=== PATIENT | male | born 1935 | race Caucasian/White ===

== ENCOUNTER 2019-04-28 05:47 | Day surgery (SDC) | payer MEDICARE ==
[2019-04-22 11:57] VITALS: BMI 25.6
[2019-04-28 07:03] VITALS: TEMP 97.7
[2019-04-28] MEDS ORDERED: fentaNYL (PF) 50 MCG/ML 2 ML AMP ONE (07:13)
[2019-04-28] MEDS ORDERED: SODIUM CHLORIDE 0.9% 500 ML 500 ML IV ONE (07:26)
[2019-04-28] MEDS ORDERED: BENZOCAINE SPRAY 1 CAN MUCOUS MEM ONE (08:10)
[2019-04-28] MEDS ORDERED: MIDAZOLAM (PF) 2 MG/2 ML VIAL IV ONE ×2 (08:12)
[2019-04-28] MEDS ORDERED: fentaNYL (PF) 50 MCG/ML 2 ML AMP IV ONE (08:12)
[2019-04-28 08:55] VITALS: RESP 18
[2019-04-28] MEDS ORDERED: SODIUM CHLORIDE 0.9% 1,000 ML IV SCH (09:45)
--- NOTE | 2019-04-28 10:28 | P.TEE ---
Indications for Procedure(s): Aortic stenosis Date of Procedure: 04/28/19 Preoperative Diagnosis: Syncope, aortic stenosis Postoperative Diagnosis: Moderate to severe aortic stenosis Procedure(s) Performed: CHACHA Description of Procedure(s): INDICATION: This is a 83-year-old gentleman with history of syncope, complete heart block and status post permanent pacemaker implantation who is also found evidence of aortic stenosis. CHACHA examination is requested to assess severity of aortic stenosis CONSENT: . Verbal consent is obtained from the patient PROCEDURE: Patient was brought to the lab in a fasting state. He was given IV sedation with 2 mg of Versed and boluses and also 25 g of fentanyl. His throat was sprayed with Cetacaine. A lubricated Omni probe was introduced into the oropharynx and was advanced into the esophagus. Patient tolerated the procedure well. No immediate complications. Color, pulsed and also continuous wave Doppler was performed. Saline contrast bubble injection was also performed. Patient tolerated the procedure well. No immediate complications FINDINGS: . The aortic valve is tricuspid, Which is heavily calcified with restricted opening. By planimetry valve area of about 1.3 cm was obtained. By Doppler study, A peak gradient of 44 with a mean of 28 was obtained. The this findings are consistent with moderate to severe aortic stenosis. Doesn't appear to be critical at this time. There is a mild aortic regurgitation. Mitral also showed calcification and thickening of the leaflets and annulus. There is mild mitral regurgitation. No significant gradient is noted across the mitral valve. The tricuspid valve appeared to be normal. The interatrial septum appeared to be intact with the bouncing of the septum. There is no spontaneous shunt noted across the septum. Saline contrast bubble injection did not reveal any crossing of the bubbles. The left ventricle function appeared to be normal. The left atrial appendage appeared to be free of any clot. There is no reversal of flow in the pulmonary veins. The aorta showed mild plaque IMPRESSION: Noted #1. Moderate to severe aortic stenosis. Doesn't appear to be critical and the close follow-up with serial echoes is recommended #2. Mild aortic regurgitation. #3. Mild mitral regurgitation. Mitral valve also shows thickening and calcification of the leaflets and also annulus #4. No evidence of PFO. #5. No clot in the left atrial appendage PLAN: . Continuation of the maximal medical therapy and close follow-up with serial echoes for assessment of the progression of aortic stenosis
[2019-04-28 11:12] VITALS: BP 107/67; PULSE 52
== END 2019-04-28 11:00 | disposition home or self-care (01) ==
LOC: CATHCVL 05:47
PROVIDERS: ATTEND Internal Medicine Cardiovascular Disease
DX: I08.0 Rheumatic disorders of both mitral and aortic valves (principal); I70.0 Atherosclerosis of aorta; I10 Essential (primary) hypertension; C44.00 Unspecified malignant neoplasm of skin of lip; F17.210 Nicotine dependence, cigarettes, uncomplicated; E78.5 Hyperlipidemia, unspecified; I44.2 Atrioventricular block, complete; I48.0 Paroxysmal atrial fibrillation; Z95.0 Presence of cardiac pacemaker; Z79.01 Long term (current) use of anticoagulants; Z79.899 Other long term (current) drug therapy
CPT/HCPCS: 93312; 93320; 93325; J3010; J2250

== ENCOUNTER 2019-05-11 12:25 | Emergency (ER) | payer MEDICARE ==
[2019-05-11 12:56] VITALS: BP 133/80; PULSE 54; RESP 20; TEMP 98.3
--- NOTE | 2019-05-11 13:22 | ED ---
Wound/Laceration HPI - General Chief Complaint: Wound/Laceration Stated Complaint: Bleeding foot-no injury Time Seen by Provider: 05/11/19 13:05 Source: patient Mode of arrival: ambulatory Limitations: no limitations - History of Present Illness Initial Comments: Patient is a 83-year-old male presenting to the emergency Department with complaints of a bleeding varicose vein on his left ankle area. Patient states he was putting on his sock when he noticed some bleeding coming from his left ankle/foot. Patient states this is second time it happened. Patient states he was able to put pressure and elevate his foot and the bleeding stopped within 5 minutes. Patient does admit to being on a blood thinner. Patient does have a vascular doctor already. Patient denies fever, chills, dizziness at this time. Patient has no other complaints at this time. Upon arrival, bleeding is controlled at this time. Vital signs are stable. - Related Data Home Medications Medication Instructions Recorded Confirmed Albuterol Sulfate [Proventil Hfa] 1 - 2 puff INHALATION Q6HR PRN 04/22/19 04/22/19 Atorvastatin [Lipitor] 10 mg PO DAILY 04/22/19 04/22/19 Carvedilol [Coreg] 3.125 mg PO BID 04/22/19 04/22/19 Cholecalciferol (Vitamin D3) 2,000 unit PO BID 04/22/19 04/22/19 [Vitamin D3] Dabigatran [Pradaxa] 150 mg PO BID 04/22/19 04/22/19 Digoxin [Lanoxin] 125 mcg PO DAILY 04/22/19 04/22/19 Lisinopril [Zestril] 5 mg PO DAILY 04/22/19 04/22/19 Meclizine HCl 25 mg PO TID PRN 04/22/19 04/22/19 Omeprazole 20 mg PO BID 04/22/19 04/22/19 Allergies Allergy/AdvReac Type Severity Reaction Status Date / Time No Known Allergies Allergy Verified 05/11/19 12:56 Review of Systems ROS Statement: Those systems with pertinent positive or pertinent negative responses have been documented in the HPI. ROS Other: All systems not noted in ROS Statement are negative. Past Medical History Past Medical History: Asthma, Cancer, GERD/Reflux, Prostate Disorder Additional Past Medical History / Comment(s): See Dr Bettencourt's H&P,Bryson's Esophagus,Self urinary caths self r/t prostate since 2013,radiation 30 tx's on upper lip for tx of melanoma-last tx 04-21-19( states "it looks like a bad sunburn",Meniere's Disease History of Any Multi-Drug Resistant Organisms: None Reported Past Surgical History: Appendectomy, Cholecystectomy, Heart Catheterization, Pacemaker, Prostate Surgery Additional Past Surgical History / Comment(s): "reemed the prostate-could not urinate on own post procedure",[employer] Pacermaker,EGDs,Adhesions removed,maximo cataracts,laparoscopic kinsey fundopliction Past Anesthesia/Blood Transfusion Reactions: No Reported Reaction Type of Cardiac Device: Permanent Pacemaker Device Placement Date:: 2012 Past Psychological History: No Psychological Hx Reported Smoking Status: Former smoker - Past Family History Mother Family Medical History: No Reported History Brother(s) Family Medical History: Cancer General Exam - General Exam Comments Initial Comments: GENERAL: Well-appearing, well-nourished and in no acute distress. HEAD: Atraumatic, normocephalic. EYES: Pupils equal round and reactive to light, extraocular movements intact, sclera anicteric, conjunctiva are normal. ENT: TMs normal, nares patent, oropharynx clear without exudates. Moist mucous membranes. NECK: Normal range of motion, supple without lymphadenopathy or JVD. LUNGS: Breath sounds clear to auscultation bilaterally and equal. No wheezes rales or rhonchi. HEART: Regular rate and rhythm without murmurs, rubs or gallops. ABDOMEN: Soft, nontender, normoactive bowel sounds. No guarding, no rebound. No masses appreciated. : Deferred EXTREMITIES: Normal range of motion, no pitting or edema. No clubbing or cyanosis. NEUROLOGICAL: Cranial nerves II through XII grossly intact. Normal speech, normal gait. PSYCH: Normal mood, normal affect. SKIN: Warm, Dry, normal turgor, no rashes or lesions noted. Patient has venous insufficiency with some superficial varicose veins present in the lower leg and mostly on the left foot. There is no active bleeding at this time. Neurovascular intact. Limitations: no limitations Course Vital Signs 05/11/19 12:53 Temperature 98.3 F Pulse Rate 54 L Respiratory 20 Rate Blood Pressure 133/80 O2 Sat by Pulse 99 Oximetry Medical Decision Making - Medical Decision Making Patient is a 83-year-old male who presents with a bleeding varicose vein in the left foot. Upon arrival to the ER bleeding is controlled. Patient admits to being on blood thinners. Patient states this is the second times this happened. States he was pulling on a sock and noticed the bleeding started. Bleeding was controlled within 5 minutes. Patient has no other complaints at this time. Patient already has a vascular surgeon. Patient was counseled varicose veins and will follow up with his surgeon. Patient will be discharged home. Return parameters were discussed with the patient he verbalized understanding. Case discussed with Dr. Tesfaye. Disposition Clinical Impression: Varicose veins of both lower extremities Disposition: HOME SELF-CARE Condition: Stable Instructions (If sedation given, give patient instructions): Skin Tear (ED) Additional Instructions: Please return to the Emergency Department if symptoms worsen or any other concerns. Follow-up with PCP and/or vascular surgeon as discussed. Is patient prescribed a controlled substance at d/c from ED?: No Referrals: Malena Tuttle MD [Primary Care Provider] - 1-2 days
== END 2019-05-11 13:45 | disposition home or self-care (01) ==
LOC: EC 12:25
DX: I83.892 Varicose veins of left lower extremity with other complications (principal); J45.909 Unspecified asthma, uncomplicated; K21.9 Gastro-esophageal reflux disease without esophagitis; N42.9 Disorder of prostate, unspecified; Z85.820 Personal history of malignant melanoma of skin; Z87.891 Personal history of nicotine dependence; Z90.49 Acquired absence of other specified parts of digestive tract; Z95.0 Presence of cardiac pacemaker; Z98.890 Other specified postprocedural states; Z79.01 Long term (current) use of anticoagulants; Z79.899 Other long term (current) drug therapy
CPT/HCPCS: 99283

== ENCOUNTER 2019-06-12 10:59 | Emergency (ER) | payer MEDICARE ==
[2019-06-12] MEDS ORDERED: MORPHINE SULFATE 2 MG/ML SYRINGE IVP ONE (11:38)
--- NOTE | 2019-06-12 11:48 | ED ---
Fall HPI - General Chief Complaint: Fall Stated Complaint: Fall, head and wrist injury Time Seen by Provider: 06/12/19 11:21 Source: patient Mode of arrival: ambulatory - History of Present Illness Initial Comments: Patient is a 83-year-old male presenting to emergency Department for a chief complaint of a fall. Family member also present in the room as his story. Patient reports he was carrying a large box when he lost balance as he was walking inside his house and fell forward bracing himself with the left hand. Patient reports the pain is exacerbated with wrist flexion and extension. Patient denies any numbness and tingling in the hand. Patient also reports head trauma near the left lateral eyebrow. Patient denies loss of consciousness at the time of incident. Patient also reports mild trauma to the distal end of the right fifth digit. Patient reports history of Mnire's which he states is the reason for a cause of his fall. Patient denies blurry vision, headache, nausea or vomiting. Patient denies any drinking instability, one-sided weakness or paresthesias. Patient is on blood thinners. - Related Data Home Medications Medication Instructions Recorded Confirmed Albuterol Sulfate [Proventil Hfa] 2 puff INHALATION RT-QID PRN 04/22/19 06/12/19 Atorvastatin [Lipitor] 10 mg PO DAILY 04/22/19 06/12/19 Carvedilol [Coreg] 3.125 mg PO BID 04/22/19 06/12/19 Cholecalciferol (Vitamin D3) 2,000 unit PO BID 04/22/19 06/12/19 [Vitamin D3] Dabigatran [Pradaxa] 150 mg PO BID 04/22/19 06/12/19 Digoxin [Lanoxin] 125 mcg PO DAILY 04/22/19 06/12/19 Lisinopril [Zestril] 5 mg PO DAILY 04/22/19 06/12/19 Meclizine HCl 25 mg PO TID PRN 04/22/19 06/12/19 Omeprazole 20 mg PO BID 04/22/19 06/12/19 Allergies Allergy/AdvReac Type Severity Reaction Status Date / Time No Known Allergies Allergy Verified 06/12/19 11:42 Review of Systems ROS Statement: Those systems with pertinent positive or pertinent negative responses have been documented in the HPI. ROS Other: All systems not noted in ROS Statement are negative. Past Medical History Past Medical History: Asthma, Cancer, GERD/Reflux, Prostate Disorder Additional Past Medical History / Comment(s): See Dr Bettencourt's H&P,Bryson's Esophagus,Self urinary caths self r/t prostate since 2013,radiation 30 tx's on upper lip for tx of melanoma-last tx 04-21-19( states "it looks like a bad sunburn",Meniere's Disease History of Any Multi-Drug Resistant Organisms: None Reported Past Surgical History: Appendectomy, Cholecystectomy, Heart Catheterization, Pacemaker, Prostate Surgery Additional Past Surgical History / Comment(s): "reemed the prostate-could not urinate on own post procedure",[employer] Pacermaker,EGDs,Adhesions removed,maximo cataracts,laparoscopic kinsey fundopliction Past Anesthesia/Blood Transfusion Reactions: No Reported Reaction Type of Cardiac Device: Permanent Pacemaker Device Placement Date:: 2012 Past Psychological History: No Psychological Hx Reported Smoking Status: Former smoker Past Alcohol Use History: Unable to Obtain Past Drug Use History: None Reported - Past Family History Mother Family Medical History: No Reported History Brother(s) Family Medical History: Cancer General Exam Limitations: no limitations General appearance: alert, in no apparent distress Head exam: Present: atraumatic, normocephalic, normal inspection, other (Negative Arreaga sign, negative periorbital ecchymosis, negative hemotympanum) Eye exam: Present: normal appearance, PERRL, EOMI, other (Mild abrasion near the left lateral eyebrow measuring approximately 1 cm) Pupils: Present: normal accommodation ENT exam: Present: normal exam, normal oropharynx, mucous membranes moist, TM's normal bilaterally, normal external ear exam Neck exam: Present: normal inspection, full ROM Respiratory exam: Present: normal lung sounds bilaterally Cardiovascular Exam: Present: regular rate, normal rhythm, normal heart sounds Extremities exam: Present: tenderness (Tenderness on the left breast with palpation. Tenderness on the distal end of the right fifth digit), normal capillary refill (Bilateral), other (+2 radial and ulnar pulses bilaterally). Absent: normal inspection (Mild edema of the posterior aspect of the left wrist. Mild ecchymosis on the distal end of the right fifth digit), full ROM (Limited range of motion of the left wrist. Patient able to move fingers and left hand.) Back exam: Present: normal inspection, full ROM Neurological exam: Present: alert, oriented X3, other (Patient neurovascularly intact in bilateral upper and lower extremities) Psychiatric exam: Present: normal affect, normal mood Skin exam: Present: warm, intact, normal color Course Vital Signs 06/12/19 11:04 Temperature 98.2 F Pulse Rate 57 L Respiratory 18 Rate Blood Pressure 120/62 O2 Sat by Pulse 100 Oximetry Medical Decision Making - Medical Decision Making Patient a 83-year-old male presents emergency Department with chief complaint of a fall. patient is on blood thinners but denies loss of consciousness at the time of incident. Patient does appear to have a small abrasion near the left eyebrow. CT of brain and C-spine is unremarkable. Patient also has pain in her left wrist and x-rays unremarkable. Patient appears to the sprain. Maninder wrap will be applied. There is a minor hematoma on the distal end of the right fifth digit. X-rays showing a Small chip fracture. Finger splint will be applied. Patient advised to hold blood thinners for 2 days. Strict return parameters were thoroughly discussed the patient was understanding and agreeable. Patient asked to follow-up with orthopedics. Patient vised to return to emergency department if symptoms worsen. Case discussed with physician. Disposition Clinical Impression: Fall, Finger fracture Disposition: HOME SELF-CARE Condition: Stable Instructions (If sedation given, give patient instructions): Fall Prevention for Older Adults (ED) Additional Instructions: Please follow with orthopedics. Please hold blood thinners for 2 days. Please return to emergency department if symptoms worsen. Alternate between Tylenol and ibuprofen for pain control. Is patient prescribed a controlled substance at d/c from ED?: No Referrals: Malena Tuttle MD [Primary Care Provider] - 1-2 days Esteban Valle DO [Medical Doctor] - 1-2 days Time of Disposition: 13:04
--- NOTE | 2019-06-12 12:11 | XR ---
Fifth digit right hand HISTORY: Trauma and pain 3 views of the fifth digit of the right hand Small ossific densities present at the lateral aspect of the proximal interphalangeal joint measuring 2 mm in size may represent a small chip fracture. There is no dislocation. There is soft tissue swel ling. IMPRESSION: Possible small chip fracture as described.
[2019-06-12] MEDS ORDERED: MORPHINE SULFATE 2 MG/ML SYRINGE IM STA (12:14)
--- NOTE | 2019-06-12 12:24 | XR ---
EXAMINATION TYPE: XR wrist complete LT, XR hand complete LT DATE OF EXAM: 06/12/2019 CLINICAL HISTORY: Fall injury with pain TECHNIQUE: Frontal, lateral and oblique images of the left hand and wrist are obtained. A fourth sca phoid view left wrist is acquired. COMPARISON: None FINDINGS: There is no acute fracture/dislocation evident in the left wrist. The joint spaces in the wrist appear within normal limits. The overlying soft tissue appears unremarkable. Images of left hand show incomplete extension of phalanges. Akck-yb-etirapze narrowing throughout the fingers is present. Overlying soft tissue is unremarkable. IMPRESSION: There is no acute fracture or dislocation in the left hand or wrist.
--- NOTE | 2019-06-12 12:27 | CT ---
EXAMINATION TYPE: CT brain doreen bullard DATE OF EXAM: 06/12/2019 COMPARISON: CT 2011. HISTORY: Fall injury with headache and neck pain. CT DLP: 1530.0 mGycm. Automated Exposure Control for Dose Reduction was Utilized. TECHNIQUE: CT scan of the head and cervical spine are performed without contrast. FINDINGS: There is no acute intracranial hemorrhage or midline shift identified. Ventricular and [place] lcal prominence is identified. Calvarium is intact. The globes are intact and the visualized sinuses are clear. Cervical spine is visualized in its entirety from C1 through upper thoracic levels and demonstrates s atisfactory alignment without evidence of acute fracture or dislocation. Prevertebral soft tissue ap pears within normal limits. The C1-C2 articulation is within normal limits on the coronal images. V ertebral body heights are maintained. Moderate multilevel disc space narrowing C4-C5 through C6-C7 le vels as present most prominent at C6-C7 level where there is [id number] anterior and posterior spurring. Posterior spur disc complex effaces the anterior thecal sac at C6-C7 level. Review of axial images shows multilevel uncovertebral facet degenerative changes contributing to mult ilevel bilateral neural foraminal narrowing most prominent right C5-C6 level axial image 56. There is partial visualization of pacemaker wires. IMPRESSION: 1. There is no acute fracture or dislocation evident in the cervical spine. 2. No acute intracranial hemorrhage or midline shift is seen.
[2019-06-12 13:12] VITALS: BP 112/69; PULSE 52; RESP 16; TEMP 98.1
== END 2019-06-12 13:28 | disposition home or self-care (01) ==
LOC: EC 10:59
DX: S62.646A Nondisplaced fracture of proximal phalanx of right little finger, initial encounter for closed fracture (principal); S00.212A Abrasion of left eyelid and periocular area, initial encounter; J45.909 Unspecified asthma, uncomplicated; K21.9 Gastro-esophageal reflux disease without esophagitis; K22.70 Barrett's esophagus without dysplasia; Z79.01 Long term (current) use of anticoagulants; Z79.51 Long term (current) use of inhaled steroids; Z79.899 Other long term (current) drug therapy; Z85.820 Personal history of malignant melanoma of skin; Z95.0 Presence of cardiac pacemaker; Z92.3 Personal history of irradiation; Z87.891 Personal history of nicotine dependence; Z96.0 Presence of urogenital implants; W18.39XA Other fall on same level, initial encounter; Y93.01 Activity, walking, marching and hiking; Y92.009 Unspecified place in unspecified non-institutional (private) residence as the place of occurrence of the external cause
CPT/HCPCS: 73110; 73130; 73140; 72125; 70450; 99284; 96372; J2270

== ENCOUNTER → 2019-07-15 | Outpatient (CLI) | payer MEDICARE | END | disposition home or self-care (01) | LOC: LABWHC1 10:00 | PROVIDERS: ATTEND Orthopaedic Surgery | DX: E55.9 Vitamin D deficiency, unspecified (principal); M25.532 Pain in left wrist; M79.644 Pain in right finger(s); S52.572D Other intraarticular fracture of lower end of left radius, subsequent encounter for closed fracture with routine healing; S62.002D Unspecified fracture of navicular [scaphoid] bone of left wrist, subsequent encounter for fracture with routine healing; S63.69 Other sprain of other and unspecified finger(s) | CPT/HCPCS: 36415; 82306 ==

== ENCOUNTER → 2020-04-20 | Day surgery (SDC) | payer MEDICARE ==
[2020-04-19 10:35] VITALS: BMI 25.0
[~2020-04-20] MED LIST: BENZOCAINE SPRAY 1 CAN MUCOUS MEM ONE; MIDAZOLAM 2 MG/2 ML VIAL IVP ONE; SODIUM CHLORIDE 0.9% 500 ML IV ONE; fentaNYL (PF) 50 MCG/ML 2 ML AMP IVP ONE; fentaNYL (PF) 50 MCG/ML 2 ML AMP ONE
[2020-04-20 06:58] VITALS: TEMP 98.1
[2020-04-20 08:01] VITALS: RESP 16
[2020-04-20 10:15] LABS: Basophils % (A) 0 %; Eosinophils # (A) 0.1 k/uL (0-0.7); Eosinophils % (A) 2 %; HCT 44.4 % (39.0-53.0); HGB 14.8 gm/dL (13.0-17.5); Lymphocytes # (A) 1.4 k/uL (1.0-4.8); Lymphocytes % (A) 23 %; MCH 30.4 pg (25.0-35.0); MCHC 33.3 g/dL (31.0-37.0); MCV 91.2 fL (80.0-100.0); Monocytes # (A) 0.4 k/uL (0-1.0); Monocytes % (A) 6 %; Neutrophils % (A) 66 %; Platelet Count 149 k/uL (150-450); RBC 4.87 m/uL (4.30-5.90); RDW 12.5 % (11.5-15.5); WBC 6.1 k/uL (3.8-10.6)
[2020-04-20 10:29] LABS: INR 1.2 (<1.2); Partial Thromboplastin Time 38.4 sec (22.0-30.0); Prothrombin Time 12.2 sec (9.0-12.0)
[2020-04-20 10:31] LABS: ALT 10 U/L (4-49); AST 18 U/L (17-59); African American GFR (CKD) >90 (>60 ml/min/1.73 sqM); Albumin 3.8 g/dL (3.5-5.0); Alkaline Phosphatase 66 U/L (38-126); Anion Gap 6 mmol/L; Blood Urea Nitrogen 13 mg/dL (9-20); Carbon Dioxide 28 mmol/L (22-30); Chloride 104 mmol/L (98-107); Cholesterol 117 mg/dL (<200); Glucose 83 mg/dL (74-99); HDL Cholesterol 43 mg/dL (40-60); LDL Cholesterol,Calculated 56 mg/dL (0-99); Magnesium 2.1 mg/dL (1.6-2.3); Non-African American GFR(CKD) 85 (>60 ml/min/1.73 sqM); Potassium 4.4 mmol/L (3.5-5.1); Sodium 138 mmol/L (137-145); Total Bilirubin 0.7 mg/dL (0.2-1.3); Total Protein 6.6 g/dL (6.3-8.2); Triglycerides 88 mg/dL (<150)
--- NOTE | 2020-04-20 10:39 | PCN ---
Indications for Procedure(s): Severe aortic stenosis Date of Procedure: 04/20/20 Preoperative Diagnosis: Severe aortic stenosis Postoperative Diagnosis: close to severe aortic stenosis and moderate mitral regurgitation Procedure(s) Performed: CHACHA examination Description of Procedure(s): INDICATION: Mr. Pardeep Pena is a 74-year-old gentleman who was diagnosed to have severe aortic stenosis by transthoracic echo. A CHACHA examination is recommended reassess aortic valve CONSENT:. Informed consent was obtained from the patient verbally PROCEDURE: Patient was brought to the lab in a fasting state. He was prepped and draped in the usual fashion. Patient was given IV sedation of 1.5 mg of Versed and 25 g of fentanyl. A lubricated Omni probe was introduced into the oropharynx and was advanced into the esophagus. Patient tolerated the procedure well. Color, pulsed and continuous wave Doppler was performed. Saline contrast bubble injection was also done. Patient tolerated the procedure well FINDINGS:. The aortic valve is calcified with restricted opening excursion. By planimetry, and valve area of 0.9-1.1 was obtained with mean value of about 1. A peak gradient of about 55 and mean of about 30 was obtained across the aortic valve. There is mild aortic regurgitation. The mitral valve showed severe annular calcification. There is central and also eccentric mitral regurgitation directed laterally and posteriorly. The PISA value is about 0.4 suggestive of moderate aortic regurgitation. The interatrial septum is intact without any spontaneous and periods. Saline contrast injections did not reveal any passing of the bubbles. 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 The left atrial appendage is free of any clot. No reversal of flow in the pulmonary veins. Left ankle function appear to be fair. The aorta showed mild plaque IMPRESSION: #1. Close to severe aortic stenosis. #2. Moderate mitral regurgitation #3. Severe mitral annular calcification #4. Left atrial appendage is free of any clot. #5. No shunt across intra-atrial septum. #6. LV function is preserved. #7. Mild plaque in the aorta PLAN: Aortic valve replacement plus or minus mitral valve repair/replacement MTDD
[2020-04-20 12:06] LABS: Appearance,Urine Cloudy (Clear); Bacteria,Urine Rare /hpf; Bilirubin,Urine Negative (Negative); Blood,Urine Trace (Negative); Color,Urine Light Yellow; Glucose,Urine (UA) Negative (Negative); Hyaline Casts,Urine 1 /lpf (0-2); Ketones,Urine Negative (Negative); Leukocyte Esterase,Urine Large (Negative); Mucus,Urine Rare /hpf; Nitrite,Urine Positive (Negative); Protein,Urine Negative (Negative); RBC,Urine 9 /hpf (0-5); Specific Gravity,Urine 1.007 (1.001-1.035); Squamous Epithelial Cell,Urine <1 /hpf (0-4); Urobilinogen,Urine <2.0 mg/dL (<2.0); WBC,Urine 161 /hpf (0-5)
--- NOTE | 2020-04-20 12:53 | XR ---
EXAMINATION TYPE: XR chest 2V DATE OF EXAM: 04/20/2020 COMPARISON: Prior chest x-ray 07/17/2013 HISTORY: Preop cardiac surgery TECHNIQUE: Frontal and lateral views of the chest are obtained. FINDINGS: There is no focal air space opacity, pleural effusion, or pneumothorax seen. The cardiac silhouette size is within normal limits. The osseous structures are intact. There is a generator in left pectoral region, leads are present right atrium and ventricle. Prominent lung lines could be in dicative of underlying COPD. Calcified granuloma present in the right lower lobe. There are overlying cardiac leads. Aorta is dense. Prominence of pulmonary artery may be indicative of pulmonary artery hypertension. Suspect mitral annular calcification is present. IMPRESSION: No acute cardiopulmonary process. Old granulomatous disease, possible pulmonary artery h ypertension, COPD.
--- NOTE | 2020-04-20 12:54 | US ---
EXAMINATION TYPE: US carotid duplex BILAT DATE OF EXAM: 04/20/2020 COMPARISON: NONE CLINICAL HISTORY: Pre-Op Cardiac Surgery. Pre Op surgery EXAM MEASUREMENTS: RIGHT: Peak Systolic Velocity (PSV) cm/sec ----- Right CCA: 72.6 ----- Right ICA: 59.5 ----- Right ECA: 62.4 ICA/CCA ratio: 0.8 RIGHT: End Diastole cm/sec ----- Right CCA: 12.9 ----- Right ICA: 12.9 ----- Right ECA: 0 LEFT: Peak Systolic Velocity (PSV) cm/sec ----- Left CCA: 98.7 ----- Left ICA: 65.3 ----- Left ECA: 81.3 ICA/CCA ratio: 0.7 LEFT: End Diastole cm/sec ----- Left CCA: 15.8 ----- Left ICA: 17.3 ----- Left ECA: 4.2 VERTEBRALS (direction of flow): Right Vertebral: Antegrade Left Vertebral: Antegrade Rhythm: Normal Grayscale, color Doppler, spectral Doppler imaging performed of the carotid arteries. Waveform analys is does not show significant stenosis of the internal carotid arteries. No significant stenosis seen IMPRESSION: No hemodynamic significant stenosis of the proximal internal carotid arteries by Doppler criteria, an indirect measurement of carotid stenosis Criteria for Assigning % of Stenosis / Diameter reduction (Estimation based on the indirect measurements of the internal carotid artery velocities (ICA PSV). 1. Normal (no stenosis)=ICA PSV < 125 cm/s: ratio < 2.0: ICA EDV<40 cm/s. 2. Less than 50% stenosis=ICA PSV < 125 cm/s: ratio < 2.0: ICA EDV<40 cm/s. 3. 50 to 69% stenosis=ICA PSV of 125 to 230 cm/s: ration 2.0 ? 4.0: ICA EDV 40-100 cm/s. 4. Greater than 70% stenosis to near occlusion= ICA PSV > 230 cm/s: ratio > 4.0: ICA EDV > 100 cm/s. 5. Near occlusion= ICA PSV velocities may be low or undetectable: variable ratio and ICA EDV. 6. Total occlusion=unable to detect flow.
--- NOTE | 2020-04-20 14:24 | P.GSCN ---
History of Present Illness Consult date: 04/20/20 Reason for Consult: Severe aortic valve stenosis and moderate mitral valve regurgitation, surgical evaluation. Requesting physician: German Fernández History of present illness: This is an 84-year-old gentleman who is followed by Dr. Malena Tuttle on an outpatient basis. 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 The patient also has a history of undergoing a selective right and left coronary angiography on 08/01/2013 which demonstrated normal coronary arteries and normal left ventricular size and systolic function. Recently, the patient has had complaints of fatigue and progressive shortness of breath. He denies any recent fever, chills, cough, palpitations, chest pain, heaviness, tightness or syncope. The patient also states that he does get episodes of dizziness due to his history of Mnire's disease. The patient reports he is very active, and golfs on a regular basis 2-3 times a week and does not drive a golf cart and walks the course without difficulty. Due to the patient's recent complaints of fatigue and shortness of breath and history of moderate to severe aortic valve stenosis and a repeat 2-D echocardiogram was completed on 03/02[facility] The 2-D echocardiogram showed left ventricular size to be normal with normal systolic function and an ejection fraction of 55%. The 2-D echocardiogram also demonstrated moderate mitral valve regurgitation directed centrally, mild mitral valve stenosis with a mitral valve area of 1.9 cm, peak gradient 10 mmHg, mean gradient 3 mmHg, mild to moderate aortic valve regurgitation directed centrally, moderate to severe aortic valve stenosis with an aortic valve peak velocity of 371 cm/s, peak gradient of 55 mmHg, mean gradient 29 mmHg, mild tricuspid valve regurgitation and trace pulmonic valve regurgitation. Subsequently, due to the patient's history of aortic valve disease and recent 2-D echocardiogram findings showing worsening aortic valve disease a transesophageal echocardiogram was recommended. Today 04/20/2020 after obtaining consent the patient underwent a transesophageal echocardiogram which demonstrated an aortic valve to be calcified with restricted opening excursion, and aortic valve area by planimetry measuring 0.9-1.1 cm, a peak gradient across his aortic valve 55 mmHg, mean gradient 30 mmHg, mild aortic valve regurgitation, severe mitral valve annular calcification with central and also eccentric mitral valve regurgitation directed laterally and posteriorly with PISA value of 0.4 suggestive of moderate mitral valve regurgitation. Due to the patient's symptoms, 2-D echocardiogram results and transesophageal echoca rdiogram results a consult was placed to Dr. Wil Kapoor from cardiothoracic surgery for further evaluation and treatment recommendations. Review of Systems A 14 point review of systems was completed and was negative except as mentioned in the HPI. 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 since 2013, radiation 30 tx's on upper lip for tx of melanoma-last tx 04-21-19, Meniere's Disease, abd. aortic aneurysm-vasc. monitoring History of Any Multi-Drug Resistant Organisms: None Reported Past Surgical History: Appendectomy, Cardiac Ablation (For history of ventricular tachycardia), Cholecystectomy, Heart Catheterization (Last heart catheterization was in July 2013), Hernia Repair (History of hiatal hernia repair), Pacemaker, Prostate Surgery Additional Past Surgical History / Comment(s): "reemed the prostate-could not urinate on own post procedure", EGDs,Adhesions removed,maximo cataracts,laparoscop ic kinsey fundoplication, left leg vein stripping Past Anesthesia/Blood Transfusion Reactions: No Reported Reaction Type of Cardiac Device: Permanent Pacemaker Device Placement Date:: 2012 Medtronic Past Psychological History: No Psychological Hx Reported Smoking Status: Former smoker (Quit smoking in ) Past Alcohol Use History: None Reported Past Drug Use History: None Reported - Past Family History Mother Family Medical History: No Reported History Brother(s) Family Medical History: Cancer Father Additional Family Medical History / Comment(s): History of heart problems Medications and Allergies Home Medications Medication Instructions Recorded Confirmed Type Atorvastatin [Lipitor] 10 mg PO DAILY 04/22/19 04/20/20 History Carvedilol [Coreg] 3.125 mg PO BID 04/22/19 04/20/20 History Cholecalciferol (Vitamin D3) 2,000 unit PO BID 04/22/19 04/20/20 History [Vitamin D3] Dabigatran [Pradaxa] 150 mg PO BID 04/22/19 04/20/20 History Digoxin [Lanoxin] 0.5 tab PO DAILY 04/22/19 04/20/20 History Lisinopril [Zestril] 5 mg PO DAILY 04/22/19 04/20/20 History Omeprazole 40 mg PO DAILY PRN 04/22/19 04/20/20 History Allergies Allergy/AdvReac Type Severity Reaction Status Date / Time No Known Allergies Allergy Verified 04/20/20 06:45 Surgical - Exam Vital Signs Temp Pulse Resp BP Pulse Ox 98.1 F 51 L 18 109/57 100 04/20/20 06:56 04/20/20 06:56 04/20/20 06:56 04/20/20 06:56 04/20/20 06:56 This is a pleasant 84-year-old gentleman who was seen and examined at his bedside in the extended stay unit. He is awake, alert and oriented 3 and is in no apparent acute distress. Oxygen saturations are 98% on room air. - General well developed, well nourished, no distress, no pain - Eyes PERRL, normal ocular movement - ENT normal pinna, normal nares, normal mucosa, decreased hearing (Bilateral hearing aides), dentures (The patient is wearing partials. Has some of his own teeth.) - Neck Neck is supple, no lymphadenopathy. Bilateral carotid bruits, could be sounds heard from his cardiac murmur. no masses, trachea midline, no venous distension - Respiratory Lung sounds are essentially clear throughout. No wheezes, rhonchi or crackles. Respirations are symmetrical and nonlabored. - Cardiovascular Regular rhythm and rate. S1 and S2 present, negative for S3 or gallop. Positive systolic murmur 3/6 heard best to his left sternal border. No edema present. - Abdomen Abdomen is soft, nontender and nondistended. Normal bowel sounds. No guarding or rigidity. No organomegaly. - Genitourinary Deferred - Rectum Deferred - Integumentary no rash, no growths, no abnormal pigmentation - Neurologic normal coordination, normal sensation - Musculoskeletal normal gait, normal posture - Psychiatric oriented to time, oriented to person, oriented to place, speech is normal, memory intact Results - Labs 04/20/20 09:44 04/20/20 09:44 Abnormal Lab Results - Last 24 Hours (Table) 04/20/20 04/20/20 04/20/20 Range/Units 09:44 09:44 11:35 Plt Count 149 L (150-450) k/uL PT 12.2 H (9.0-12.0) sec INR 1.2 H (<1.2) APTT 38.4 H (22.0-30.0) sec Urine Blood Trace H (Negative) Ur Leukocyte Esterase Large H (Negative) Urine RBC 9 H (0-5) /hpf Urine WBC 161 H (0-5) /hpf Urine WBC Clumps Moderate H (None) /hpf Urine Bacteria Rare H (None) /hpf Urine Mucus Rare H (None) /hpf Diabetes panel 04/20/20 Range/Units 09:44 Sodium 138 (137-145) mmol/L Potassium 4.4 (3.5-5.1) mmol/L Chloride 104 (98-107) mmol/L Carbon Dioxide 28 (22-30) mmol/L BUN 13 (9-20) mg/dL Creatinine 0.76 (0.66-1.25) mg/dL Glucose 83 (74-99) mg/dL Calcium 9.0 (8.4-10.2) mg/dL AST 18 (17-59) U/L ALT 10 (4-49) U/L Alkaline Phosphatase 66 (38-126) U/L Total Protein 6.6 (6.3-8.2) g/dL Albumin 3.8 (3.5-5.0) g/dL Triglycerides 88 (<150) mg/dL HDL Cholesterol 43 (40-60) mg/dL Thyroid panel 04/20/20 Range/Units 09:44 TSH 1.050 (0.465-4.680) mIU/L Calcium panel 04/20/20 Range/Units 09:44 Calcium 9.0 (8.4-10.2) mg/dL Albumin 3.8 (3.5-5.0) g/dL Pituitary panel 04/20/20 Range/Units 09:44 Sodium 138 (137-145) mmol/L Potassium 4.4 (3.5-5.1) mmol/L Chloride 104 (98-107) mmol/L Carbon Dioxide 28 (22-30) mmol/L BUN 13 (9-20) mg/dL Creatinine 0.76 (0.66-1.25) mg/dL Glucose 83 (74-99) mg/dL Calcium 9.0 (8.4-10.2) mg/dL TSH 1.050 (0.465-4.680) mIU/L Adrenal panel 04/20/20 Range/Units 09:44 Sodium 138 (137-145) mmol/L Potassium 4.4 (3.5-5.1) mmol/L Chloride 104 (98-107) mmol/L Carbon Dioxide 28 (22-30) mmol/L BUN 13 (9-20) mg/dL Creatinine 0.76 (0.66-1.25) mg/dL Glucose 83 (74-99) mg/dL Calcium 9.0 (8.4-10.2) mg/dL Total Bilirubin 0.7 (0.2-1.3) mg/dL AST 18 (17-59) U/L ALT 10 (4-49) U/L Alkaline Phosphatase 66 (38-126) U/L Total Protein 6.6 (6.3-8.2) g/dL Albumin 3.8 (3.5-5.0) g/dL - Imaging Chest x-ray: report reviewed, image reviewed Additional studies: Transesophageal echocardiogram results reviewed. Assessment and Plan Assessment: 1. Severe aortic valve stenosis with an aortic valve area measuring 0.9-1.1 cm, a peak gradient of 55 mmHg and a mean gradient of 30 mmHg 2. Severe mitral valve annular calcification with moderate mitral valve regurgitation with central and also eccentric mitral regurgitation 3. Preserved LV function with an ejection fraction of 55% 4. History of hypertension 5. History of hyperlipidemia 6. Paroxysmal atrial fibrillation on Pradaxa for anticoagulation 7. History of complete heart block status post permanent pacemaker placement 8. History of ventricular tachycardia status post ablation 9. History of non-rheumatic aortic valve disease being monitored with serial 2- D echocardiograms 10. History of Mnire's disease 11. History of skin cancer to his upper lip status post 30 radiation treatments 12. Gastroesophageal reflux disease 13. History of asthma 14. Remote history of nicotine dependence quit smoking in the Plan: The patient was seen and examined at his bedside in the extended stay unit. His chart diagnostics were reviewed. This case was discussed in detail with Dr. Wil Kapoor from cardiothoracic surgery. Preoperative teaching and preoperative workup has been initiated. He will follow-up as an outpatient with Dr. Kapoor on 05/07/2020 for further discussion and evaluation for aortic valve replacement and possible mitral valve surgery. He will need to obtain preoperative dental clearance which has been discussed with the patient and his present at his bedside. Discussed with Dr. Fernández that the patient will need a heart catheterization prior to valve surgery as his last heart catheterization was in July 2013. A 5 m walk test was completed with the patient, time 1: 2.62 seconds, time 2: 2.75 seconds, time 3: 2.91 seconds. A bedside FEV1 was completed which demonstrated a 93% of predicted value. Once the patient's preoperative testing has been completed including the heart catheterization, further recommendations will be discussed on how to proceed and when to proceed with aortic valve surgery. Continue to optimize medically with statin, beta jacquelin and YAA inhibitor. Medical management and other comorbidities per primary care service and cardiology recommendations. Thank you Dr. Fernández for this consult and we look forward to working with you in the care of this patient. Time with Patient: Greater than 30
[2020-04-20 18:53] LABS: Hemoglobin A1C 5.2 % (4.0-6.0)
[2020-04-20 18:56] LABS: Hepatitis A Antibody IgM Non-Reactive (Non-Reactive); Hepatitis B Core IgM Non-Reactive (Non-Reactive); Hepatitis B Surface Antigen Non-Reactive (Non-Reactive); Hepatitis C IgG Antibody Non-Reactive (Non-Reactive)
[2020-04-20 19:24] VITALS: BP 101/59; PULSE 65
== END ==
LOC: CATHCVL 06:20
PROVIDERS: ATTEND Internal Medicine Cardiovascular Disease
DX: I08.0 Rheumatic disorders of both mitral and aortic valves (principal); I70.0 Atherosclerosis of aorta; I10 Essential (primary) hypertension; I48.0 Paroxysmal atrial fibrillation; I44.2 Atrioventricular block, complete; K21.9 Gastro-esophageal reflux disease without esophagitis; E78.5 Hyperlipidemia, unspecified; J45.909 Unspecified asthma, uncomplicated; H81.09 Meniere's disease, unspecified ear; I83.92 Asymptomatic varicose veins of left lower extremity; Z95.0 Presence of cardiac pacemaker; Z85.828 Personal history of other malignant neoplasm of skin; Z92.3 Personal history of irradiation; Z87.891 Personal history of nicotine dependence; Z90.49 Acquired absence of other specified parts of digestive tract; Z98.890 Other specified postprocedural states; Z98.41 Cataract extraction status, right eye; Z79.02 Long term (current) use of antithrombotics/antiplatelets; Z79.899 Other long term (current) drug therapy; Z98.42 Cataract extraction status, left eye; Z80.9 Family history of malignant neoplasm, unspecified; Z82.49 Family history of ischemic heart disease and other diseases of the circulatory system
CPT/HCPCS: 94150; 93312; 93320; 93325; 80061; 80053; 80074; 84443; 83735; 85025; 85610; 85730; 81001; 87070; 87086; 83036; 71046; 93880; J2250; J3010

== ENCOUNTER → 2020-05-06 | Day surgery (SDC) | payer MEDICARE ==
[2020-05-04 15:48] VITALS: BMI 25.3
[~2020-05-06] MED LIST changes: +ALPRAZolam 0.25 MG TAB PO PRN; +ALPRAZolam 0.5 MG TAB PO PRN; +ASPIRIN 325 MG TAB PO STA; +ATORVASTATIN 80 MG TAB PO STA; -BENZOCAINE SPRAY 1 CAN MUCOUS MEM ONE; +HEPARIN SODIUM 1,000 UN/ML (10ML VL) IV ONE; +HEPARIN SODIUM 1,000 UN/ML (10ML VL) ONE; +IOPAMIDOL-370 100ML BTL INJ ONE; +LIDOCAINE 1% INJ 10MG/ML (20 ML MDV) ONE; +LIDOCAINE 1% INJ 10MG/ML (20 ML MDV) SQ ONE; +MIDAZOLAM 2 MG/2 ML VIAL IV ONE; -MIDAZOLAM 2 MG/2 ML VIAL IVP ONE; +NITROGLYCERIN SL TABS 0.4 MG TAB SUBLINGUAL PRN; +RX INFO: IV CONTRAST WAS GIVEN 1 EACH MISC MISCELLANE PRN; +SODIUM CHLORIDE 0.9% 1,000 ML IV SCH; +SODIUM CHLORIDE 0.9% 1,000 ML in EMPTY BAG 1 BAG IV ONE; -SODIUM CHLORIDE 0.9% 500 ML IV ONE; +VERAPAMIL 2.5 MG/ML 2 ML AMP ONE; +VERAPAMIL SYRINGE (5 MG/10 ML) INTRAARTER ONE; +fentaNYL (PF) 50 MCG/ML 2 ML AMP IV ONE; -fentaNYL (PF) 50 MCG/ML 2 ML AMP IVP ONE
[2020-05-06 11:06] VITALS: RESP 18
[2020-05-06 18:12] VITALS: BP 124/76; PULSE 54
--- NOTE | 2020-05-07 08:13 | P.CARDCATH ---
Date of Procedure: 05/07/20 Preoperative Diagnosis: Severe aortic stenosis Postoperative Diagnosis: Mild to moderate aortic stenosis Procedure(s) Performed: Left heart catheterization without left ventriculography Description of Procedure: HISTORY: This is a 83-year-old gentleman with history of aortic stenosis who is been having symptoms of fatigue and shortness of breath. CHACHA examination was consistent with moderate to severe aortic stenosis. Patient is advised to have cardiac catheterization for definitive diagnosis CONSENT:I have discussed the risks, benefits and alternative therapies for the above-mentioned procedure and for both sedation/analgesia as well as necessary blood product administration, if indicated, as they pertain to this patient. The patient has indicated understanding and acceptance of the risks and procedures discussed. PROCEDURE: Patient was brought to the lab in a fasting state. Patient was given some IV sedation. The right wrist is infiltrated with lidocaine. The right radial artery was entered and a 6-[place] sheath was left in place. The right coronary artery was injected with 3.5 and Mira catheter which was a subselective injection. However the left coronary system could not be engaged because of extreme tortuosity. Subsequently procedure was done from the right groin approach. TR band was applied for hemostasis The right groin is infiltrated with lidocaine and right femoral artery was ent ered using Seldinger technique. A 6-[place] catheter was left in place and selective coronary arteriography was performed. Patient tolerated the procedure well. Femoral angiogram was performed and Angio-Seal was applied for hemostasis. No immediate complications were noted and patient was transferred to [facility] in a stable condition Conscious Sedation: Versed 1mg Fentanyl 25 g Duration 29minutes HEMODYNAMICS: The aortic pressure is about 110/70. The gradient across the aortic valve was 20-25. The left ventricle end-diastolic pressure is about 10 SELECTIVE CORONARY ARTERIOGRAPHY: LEFT MAIN: Normal length and free of occlusive disease THE LEFT ANTERIOR DESCENDING CORONARY ARTERY:. Good caliber vessel wrapping around the apex. No Sigmund coronary artery disease noted THE LEFT CIRCUMFLEX AND IS CORONARY ARTERY:. Good caliber vessel. Free of occlusive disease THE RIGHT CORONARY ARTERY:. Good Caliber and dominant vessel free of occlusive disease LEFT VENTRICULOGRAPHY: Not performed FINAL IMPRESSION: #1. Normal coronary arteries #2. Mild to moderate aortic s tenosis based on the gradient PLAN: Medical therapy and this factor modification PROGNOSIS: Fair
== END ==
LOC: CATHCVL 10:11
PROVIDERS: ATTEND Internal Medicine Cardiovascular Disease
DX: I08.0 Rheumatic disorders of both mitral and aortic valves (principal); I10 Essential (primary) hypertension; I48.91 Unspecified atrial fibrillation; E78.5 Hyperlipidemia, unspecified; Z72.0 Tobacco use; Z79.02 Long term (current) use of antithrombotics/antiplatelets; Z79.899 Other long term (current) drug therapy; Z95.0 Presence of cardiac pacemaker
CPT/HCPCS: 93458; C1760; C1769 ×4; C1894 ×2; J2250; J2001; J3010; J1644; Q9967

== ENCOUNTER → 2020-07-14 | Outpatient (CLI) | payer MEDICARE ==
--- NOTE | 2020-07-14 11:13 | US ---
EXAMINATION TYPE: US thyroid st tissue head/neck DATE OF EXAM: 07/14/2020 COMPARISON: NONE CLINICAL HISTORY: M54.2 Neck Pain. GLAND SIZE: Right Lobe: 5.2 x 2.1 x 1.8 cm Overall Parenchyma: heterogenous Left Lobe: 5.4 x 2.5 x 1.7 cm Overall Parenchyma: heterogeneous Isthmus Thickness: 0.8 cm NODULES RIGHT: # of nodules measured on right: 0 LEFT: # of nodules measured on left: 1 1. 1.7 X 0.9 x 0.7 cm hypoechoic mixed nodule at the mid pole with well-defined margins; . This no dule is wider than tall and shows no intranodular vascularity. ISTHMUS: # of nodules measured in the isthmus: 0 Bilateral neck scanned, no evidence of lymphadenopathy. Enlarged, diffusely heterogeneous and hypervascular bilateral thyroid glands. IMPRESSION: Diffusely enlarged and heterogenous thyroid gland with hypervascularity. Correlate for thyroiditis. N onspecific left thyroid nodule is solid in appearance.
--- NOTE | 2020-07-14 12:03 | XR ---
EXAMINATION TYPE: XR soft tissue neck DATE OF EXAM: 07/14/2020 COMPARISON: NONE HISTORY: Pain TECHNIQUE: 2 view submitted FINDINGS: Cardiac leads are seen. Lung apices are clear. Hypertrophic and degenerative changes spine. Prevertebral soft tissue structures within normal limits. Epiglottis has a normal appearance. Airway appears patent. Facet arthropathy noted. Soft tissue ossification in the posterior soft tissues appe ars chronic. IMPRESSION: 1. Degenerative change of the cervical spine with facet arthropathy.
== END | disposition home or self-care (01) ==
LOC: RADUSWWP 10:41
PROVIDERS: ATTEND Family Medicine
DX: E04.9 Nontoxic goiter, unspecified (principal); E04.1 Nontoxic single thyroid nodule; M47.812 Spondylosis without myelopathy or radiculopathy, cervical region
CPT/HCPCS: 70360; 76536

== ENCOUNTER → 2020-08-09 | Outpatient (CLI) | payer MEDICARE ==
--- NOTE | 2020-08-09 16:36 | US ---
EXAMINATION TYPE: US kidneys/renal and bladder DATE OF EXAM: 08/09/2020 COMPARISON: None CLINICAL HISTORY: 85-year-old male R33.9 RETENTION OF URINE. Patient states having to cath himself to urinate. Check kidneys. TECHNIQUE: Multiple sonographic images of the kidneys and bladder are obtained. FINDINGS: EXAM MEASUREMENTS: Right Kidney: 11.3 x 5.2 x 5.8 cm Left Kidney: 10.6 x 4.8 x 5.1 cm Post Void Residual Volume: 20.6 mL Right Kidney: lower pole cortical cyst measuring 1.0 x 0.9 x 0.9 cm. No hydronephrosis. Left Kidney: No hydronephrosis. Bladder: anechoic, distended. Suspect a 2.8 cm right posterior bladder wall diverticulum. Bilateral Jets seen Normal Post Void Residual: yes IMPRESSION: 1. No hydronephrosis. 2. Postvoid bladder volume increased at 21 mL but still falls within acceptable limits. 3. Suspect a 2.8 cm right posterior bladder wall diverticulum.
== END | disposition home or self-care (01) ==
LOC: RADUSWWP 14:55
PROVIDERS: ATTEND Urology
DX: R33.9 Retention of urine, unspecified (principal)
CPT/HCPCS: 76770

== ENCOUNTER → 2020-08-23 | Outpatient (CLI) | payer MEDICARE ==
[2020-08-23 19:57] LABS: T4, Free (Free Thyroxine) 0.8 ng/dL (0.80-1.80)
[2020-08-24 11:49] LABS: Thyroid Stim Immun Quant <0.10 IU/L (<0.10)
== END | disposition home or self-care (01) ==
LOC: LABWHC1 10:50
PROVIDERS: ATTEND Internal Medicine Endocrinology, Diabetes & Metabolism
DX: E06.0 Acute thyroiditis (principal)
CPT/HCPCS: 36415; 84436; 84439; 84443; 84445

== ENCOUNTER → 2021-03-01 | Outpatient (CLI) | payer MEDICARE ==
[2021-03-02 00:37] LABS: T4, Free (Free Thyroxine) 1.1 ng/dL (0.80-1.80)
== END | disposition home or self-care (01) ==
LOC: LABWHC1 12:11
PROVIDERS: ATTEND Internal Medicine Endocrinology, Diabetes & Metabolism
DX: E06.0 Acute thyroiditis (principal)
CPT/HCPCS: 36415; 84439; 84443; 84480

== ENCOUNTER 2021-05-13 16:39 | Observation (INO) | payer MEDICARE ==
[2021-05-13 17:48] LABS: Basophils # (A) 0.1 k/uL (0-0.2); Basophils % (A) 1 %; Eosinophils # (A) 0.1 k/uL (0-0.7); Eosinophils % (A) 1 %; HCT 48.5 % (39.0-53.0); HGB 16.8 gm/dL (13.0-17.5); Lymphocytes # (A) 2.5 k/uL (1.0-4.8); Lymphocytes % (A) 33 %; MCH 30.8 pg (25.0-35.0); MCHC 34.5 g/dL (31.0-37.0); MCV 89.2 fL (80.0-100.0); Mean Platelet Volume 8.1; Monocytes # (A) 0.6 k/uL (0-1.0); Monocytes % (A) 8 %; Neutrophils # (A) 4.1 k/uL (1.3-7.7); Neutrophils % (A) 54 %; Platelet Count 153 k/uL (150-450); RBC 5.44 m/uL (4.30-5.90); RDW 12.6 % (11.5-15.5); WBC 7.6 k/uL (3.8-10.6)
[2021-05-13 17:57] LABS: Albumin 4.5 g/dL (3.5-5.0); Calcium 10.5 mg/dL (8.4-10.2); Magnesium 2.3 mg/dL (1.6-2.3); Potassium 4.4 mmol/L (3.5-5.1); Total Bilirubin 0.6 mg/dL (0.2-1.3); Total Protein 7.2 g/dL (6.3-8.2)
[2021-05-13 18:08] LABS: Partial Thromboplastin Time 26.1 sec (22.0-30.0)
--- NOTE | 2021-05-13 18:49 | XR ---
EXAMINATION TYPE: XR chest 2V DATE OF EXAM: 05/13/2021 COMPARISON: 04/20/2020 HISTORY: Chest pain TECHNIQUE: FINDINGS: Heart and mediastinum are within normal limits. Lungs are clear of consolidation. There is minimal pleural thickening at the lateral right lung base. There are no hilar masses. There is left a xillary pacemaker. Thoracic aorta is atheromatous. IMPRESSION: No active cardiopulmonary disease. Normal heart. No change.
[2021-05-13 18:50] LABS: Appearance,Urine Clear (Clear); Bacteria,Urine Few /hpf; Bilirubin,Urine Negative (Negative); Blood,Urine Negative (Negative); Color,Urine Light Yellow; Glucose,Urine (UA) Negative (Negative); Ketones,Urine Negative (Negative); Leukocyte Esterase,Urine Small (Negative); Nitrite,Urine Negative (Negative); PH, Urine 7.5 (5.0-8.0); Protein,Urine Negative (Negative); RBC,Urine 1 /hpf (0-5); Specific Gravity,Urine 1.003 (1.001-1.035); Urobilinogen,Urine <2.0 mg/dL (<2.0); WBC,Urine 3 /hpf (0-5)
[2021-05-13] MEDS ORDERED: MECLIZINE 25 MG TAB PO PRN (21:39)
--- NOTE | 2021-05-13 21:41 | P.HPIM ---
History of Present Illness H&P Date: 05/13/21 Patient is an 85-year-old male with a PMH of AYelena alford on Eliquis, status post pacemaker placement (Medtronic), and hypertension presented to the emergency room with complaints of chest discomfort, shortness of breath, nausea, and dizziness. Patient reports that he woke up this morning feeling more tired than usual. He reports he continued to have low energy throughout the day until about 3 PM when he suddenly developed constant, non-radiating, 5 out of 10 pressure-like epigastric discomfort with associated shortness of breath, nausea without emesis, and dizziness. He became alarmed and told his who activated EMS. He reports that his symptoms resolved spontaneously shortly after presentation to the emergency room. He reported feeling back to his baseline at time of interview. Denied further complaints. Denied fever, chills, cough. Denied abdominal pain, vomiting, diarrhea. 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 He notes that the last and he had such symptoms was when he initially had his pacemaker placed nearly 10 years ago. Vital signs upon presentation were BP 146/70, pulse 65, respiratory rate 20, SpO2 100% on room air, and temperature 97.8F. EKG in the emergency room revealed the the patient rhythm at 67 bpm. Chest x-ray in the emergency room was unremarkable. Laboratory evaluation was remarkable for troponin of 0.015. He is being admitted to the medicine service under observation for cardiology evaluation and pacemaker interrogation. Review of systems: Pertinent positives and negatives as discussed in HPI, a complete review of systems was performed and all other systems are negative. Physical examination: General: non toxic, no distress, appears younger than stated age, normal weight Derm: no unusual rashes/lesions no unusual ecchymoses, warm, dry Head: atraumatic, normocephalic, symmetric Eyes: EOMI, no lid lag, anicteric sclera, pupils equal round reactive to light ENT: Nose and ears atraumatic, no thrush, no pharyngeal erythema Neck: No thyromegaly, no cervical lymphadenopathy, trachea midline, supple Mouth: no lip lesion, mucus membranes moist Cardiovascular: S1S2 reg, no murmur, positive posterior tibial pulse bilateral, no edema, capillary refill less than 2 seconds Lungs: CTA bilateral, no rhonchi, no rales , no accessory muscle use Abdominal: soft, nontender to palpation, no guarding, no appreciable organo megaly, normal bowel sounds Ext: no gross muscle atrophy, muscle strength 5 out of 5 in all 4 extremities grossly, no contractures, Neuro: CN II-XI grossly intact, light touch intact all 4 extremities, finger to nose within normal limits, Psych: Alert, oriented, appropriate affect Assessment/plan Shortness of breath, chest discomfort, dizziness - suspected secondary to pacemaker dysfunction -Pacemaker interrogation -Cardiology consult -Cardiac monitoring -Fall precautions -Trend troponin Chronic conditions: A. fib, hypertension, hyperlipidemia -Continue with home meds DVT prophylaxis -Eliquis The patient is admitted with an anticipated less than 2 midnight stay for evaluation of chest pain CODE STATUS: No Code Discussed with: Patient, Anticipated discharge date: in am Anticipated discharge place: Home Past Medical History Past Medical History: Atrial Fibrillation, Asthma, Cancer, Eye Disorder, GERD/Reflux, Hearing Disorder / Deafness, Hyperlipidemia, Hypertension, Prostate Disorder, Skin Disorder, Vascular Disorder Additional Past Medical History / Comment(s): See Dr Bettencourt's H&P, Bryson's Esophagus,Self caths r/t prostate surg. since 2013, radiation 30 tx's on upper lip for tx of melanoma-last tx 04-21-19, Meniere's Disease, abd. aortic aneurysm-vasc. monitoring History of Any Multi-Drug Resistant Organisms: None Reported Past Surgical History: Appendectomy, Cardiac Ablation, Cholecystectomy, Heart Catheterization, Hernia Repair, Pacemaker, Prostate Surgery Additional Past Surgical History / Comment(s): "reemed the prostate-could not urinate on own post procedure", EGDs,Adhesions removed,maximo cataracts,laparos copic kinsey fundoplication, left leg vein stripping Past Anesthesia/Blood Transfusion Reactions: No Reported Reaction Type of Cardiac Device: Permanent Pacemaker Device Placement Date:: 2012 Medtronic Past Psychological History: No Psychological Hx Reported Smoking Status: Former smoker Past Alcohol Use History: None Reported Past Drug Use History: None Reported - Past Family History Mother Family Medical History: No Reported History Additional Family Medical History / Comment(s): Not pertinent for current admission Father Additional Family Medical History / Comment(s): History of heart problems Brother(s) Family Medical History: Cancer Medications and Allergies Home Medications Medication Instructions Recorded Confirmed Type Atorvastatin [Lipitor] 10 mg PO HS 04/22/19 05/13/21 History Cholecalciferol (Vitamin D3) 2,000 unit PO BID 04/22/19 05/13/21 History [Vitamin D3] Digoxin [Lanoxin] 125 mcg PO DAILY 04/22/19 05/13/21 History carvediloL [Coreg] 3.125 mg PO BID 04/22/19 05/13/21 History Meclizine [Antivert] 25 mg PO TID PRN 05/06/20 05/13/21 History Albuterol Sulfate [Ventolin HFA] 1 - 2 puff INHALATION RT-Q6H PRN 05/13/21 05/13/21 History Apixaban [Eliquis] 5 mg PO BID 05/13/21 05/13/21 History Omeprazole [PriLOSEC] 40 mg PO DAILY 05/13/21 05/13/21 History lisinopriL [Zestril] 2.5 mg PO DAILY 05/13/21 05/13/21 History Allergies Allergy/AdvReac Type Severity Reaction Status Date / Time No Known Allergies Allergy Verified 05/13/21 18:54 Physical Exam Vitals: Vital Signs Temp Pulse Resp BP Pulse Ox 05/13/21 20:34 65 20 98/87 98 05/13/21 19:43 65 20 99/69 97 05/13/21 17:44 20 05/13/21 17:43 65 20 100/60 99 05/13/21 16:40 97.8 F 65 20 146/70 100 Intake and Output 05/13/21 05/13/21 05/13/21 06:59 14:59 22:59 Other: Weight 87.543 kg Results CBC & Chem 7: 05/13/21 17:38 05/13/21 17:38 Labs: Abnormal Lab Results - Last 24 Hours (Table) 05/13/21 05/13/21 Range/Units 17:38 17:38 Calcium 10.5 H (8.4-10.2) mg/dL Ur Leukocyte Esterase Small H (Negative) Urine Bacteria Few H (None) /hpf
[2021-05-13] MEDS: APIXABAN 5 MG TAB PO SCH (22:06)
[2021-05-13] MEDS: ATORVASTATIN 10 MG TAB PO SCH (22:06)
--- NOTE | 2021-05-13 23:13 | ED ---
General Adult HPI - General Chief complaint: Weakness Stated complaint: weakness Time Seen by Provider: 05/13/21 17:00 Source: patient, family, RN notes reviewed, old records reviewed Mode of arrival: wheelchair Limitations: physical limitation - History of Present Illness Initial comments: Patient is an 85-year-old male with past medical history remarkable for atrial fibrillation, asthma, GERD, hypertension, prostate disorder, skin cancer with pacemaker in place made by [employer] who presents emergency Department complaining of acute onset of lightheadedness and generalized fatigue earlier today. Patient states that this occurred approximately one month ago and was found at his outpatient PCP that the battery to his pacemaker was running low b ut he still had a few months left. Patient is concerned that that may be the current cause of his symptoms. He denies any chest pain, shortness of breath currently. States he still feels mildly fatigued. Denies any abdominal pain, nausea, vomiting. Denies any sensory deficits. Patient is able to ambulate without difficulty. He was earlier golfing, when the symptoms occurred. He states that they self resolved. He presents with his for cardiac evaluation and concern for his pacemaker. - Related Data Home Medications Medication Instructions Recorded Confirmed Atorvastatin [Lipitor] 10 mg PO HS 04/22/19 05/13/21 Cholecalciferol (Vitamin D3) 2,000 unit PO BID 04/22/19 05/13/21 [Vitamin D3] Digoxin [Lanoxin] 125 mcg PO DAILY 04/22/19 05/13/21 carvediloL [Coreg] 3.125 mg PO BID 04/22/19 05/13/21 Meclizine [Antivert] 25 mg PO TID PRN 05/06/20 05/13/21 Albuterol Sulfate [Ventolin HFA] 1 - 2 puff INHALATION RT-Q6H PRN 05/13/2105/13 Apixaban [Eliquis] 5 mg PO BID 05/13/21 05/13/21 Omeprazole [PriLOSEC] 40 mg PO DAILY 05/13/21 05/13/21 lisinopriL [Zestril] 2.5 mg PO DAILY 05/13/21 05/13/21 Allergies Allergy/AdvReac Type Severity Reaction Status Date / Time No Known Allergies Allergy Verified 05/13/21 18:54 Review of Systems ROS Statement: Those systems with pertinent positive or pertinent negative responses have been documented in the HPI. Review of Systems: CONST: Endorses generalized fatigue EYES: Denies blurry vision ENT: Denies nasal congestion C/V: Denies Chest pain RESP: Denies shortness of breath GI: Denies abdominal pain : Denies dysuria SKIN: Denies rash. MSK: Denies joint pain. NEURO: Denies headache ROS Other: All systems not noted in ROS Statement are negative. Past Medical History Past Medical History: Atrial Fibrillation, Asthma, Cancer, Eye Disorder, GERD/Reflux, Hearing Disorder / Deafness, Hyperlipidemia, Hypertension, Prostate Disorder, Skin Disorder, Vascular Disorder Additional Past Medical History / Comment(s): See Dr Bettencourt's H&P, Bryson's Esophagus,Self caths r/t prostate surg. since 2013, radiation 30 tx's on upper lip for tx of melanoma-last tx 04-21-19, Meniere's Disease, abd. aortic aneurysm-vasc. monitoring History of Any Multi-Drug Resistant Organisms: None Reported Past Surgical History: Appendectomy, Cardiac Ablation, Cholecystectomy, Heart Catheterization, Hernia Repair, Pacemaker, Prostate Surgery Additional Past Surgical History / Comment(s): "reemed the prostate-could not urinate on own post procedure", EGDs,Adhesions removed,maximo cataracts,laparoscopic kinsey fundoplication, left leg vein stripping Past Anesthesia/Blood Transfusion Reactions: No Reported Reaction Type of Cardiac Device: Permanent Pacemaker Device Placement Date:: 2012 [employer] Past Psychological History: No Psychological Hx Reported Smoking Status: Former smoker Past Alcohol Use History: None Reported Past Drug Use History: None Reported - Past Family History Mother Family Medical History: No Reported History Additional Family Medical History / Comment(s): Not pertinent for current admission Brother(s) Family Medical History: Cancer Father Additional Family Medical History / Comment(s): History of heart problems General Exam - General Exam Comments Initial Comments: General: Appears in no acute distress. HEAD: Normal with no signs of head trauma. EYES: PERRLA, EOMI, conjunctiva normal, no discharge. ENT: Hearing grossly intact, normal oropharynx. RESPIRATORY: Clear breath sounds bilaterally. No wheezes, rales, or rhonchi. C/V: Regular rate and rhythm. S1 and S2 auscultated, no edema, peripheral pulses 2+ and intact throughout ABD: Abd is soft, nontender, nondistended EXT: Normal range of motion, no obvious deformity SKIN: No rashes or lesions observed on exposed skin. NEURO: Alert and oriented x 4. Cranial nerves II-XII intact. No focal sensory or strength deficits. Cerebellar function is intact as) normal finger to nose testing. Patient is able to ambulate. GCS is 15, INH stroke scale is 0. Limitations: physical limitation Course Vital Signs 05/13/21 05/13/21 05/13/21 16:40 17:43 17:44 Temperature 97.8 F Pulse Rate 65 65 Respiratory 20 20 20 Rate Blood Pressure 146/70 100/60 O2 Sat by Pulse 100 99 Oximetry 05/13/21 05/13/21 19:43 20:34 Temperature Pulse Rate 65 65 Respiratory 20 20 Rate Blood Pressure 99/69 98/87 O2 Sat by Pulse 97 98 Oximetry Medical Decision Making - Medical Decision Making Based on the patient's presentation and physical exam, I'm concerned for possible pacemaker malfunction versus cardiac etiology for his current symptoms. He is relatively nonsymptomatic at this time with just slight weakness and lightheadedness. We will obtain a cardiac workup including troponin, EKG, chest x-ray. He was in agreement this plan. He will be connected to continuous cardiac monitoring was here in the department. Patient's EKG shows a ventricular paced rhythm with a functioning pacemaker. There is no prior EKG for comparison, however prior tracing shows similar findin gs on EKG from 2019. Chest x-ray shows no acute cardiopulmonary process. Laboratory studies are remarkable for an initial troponin of 0.015, repeat temperature troponin is less than 0.012. Remainder of his labs are unremarkable. On reevaluation, I spoke with patient regarding his relatively normal workup. I discussed with him that I would still like to admit him to the hospital to observation for interrogation of his pacemaker, as he is still complaining of very mild weakness. He was in agreement this plan. I consulted cardiology as a routine consult to evaluate the patient the morning. I spoke with the admitting team under Dr. Barger who accepted the admission. Patient will be admitted to the hospital in fair condition. - Lab Data Result diagrams: 05/13/21 17:38 05/13/21 17:38 Lab Results 07/23/21 07/23/21 07/23/21 Range/Units 17:38 17:38 17:38 WBC 7.6 (3.8-10.6) k/uL RBC 5.44 (4.30-5.90) m/uL Hgb 16.8 (13.0-17.5) gm/dL Hct 48.5 (39.0-53.0) % MCV 89.2 (80.0-100.0) fL MCH 30.8 (25.0-35.0) pg MCHC 34.5 (31.0-37.0) g/dL RDW 12.6 (11.5-15.5) % Plt Count 153 (150-450) k/uL MPV 8.1 Neutrophils % 54 % Lymphocytes % 33 % Monocytes % 8 % Eosinophils % 1 % Basophils % 1 % Neutrophils # 4.1 (1.3-7.7) k/uL Lymphocytes # 2.5 (1.0-4.8) k/uL Monocytes # 0.6 (0-1.0) k/uL Eosinophils # 0.1 (0-0.7) k/uL Basophils # 0.1 (0-0.2) k/uL PT 11.0 (9.0-12.0) sec INR 1.0 (<1.2) APTT 26.1 (22.0-30.0) sec Sodium (137-145) mmol/L Potassium (3.5-5.1) mmol/L Chloride (98-107) mmol/L Carbon Dioxide (22-30) mmol/L Anion Gap mmol/L BUN (9-20) mg/dL Creatinine (0.66-1.25) mg/dL Est GFR (CKD-EPI)AfAm (>60 ml/min/1.73 sqM) Est GFR (CKD-EPI)NonAf (>60 ml/min/1.73 sqM) Glucose (74-99) mg/dL Calcium (8.4-10.2) mg/dL Magnesium (1.6-2.3) mg/dL Total Bilirubin (0.2-1.3) mg/dL AST (17-59) U/L ALT (4-49) U/L Alkaline Phosphatase (38-126) U/L Troponin I (0.000-0.034) ng/mL Total Protein (6.3-8.2) g/dL Albumin (3.5-5.0) g/dL Urine Color Light Yellow Urine Appearance Clear (Clear) Urine pH 7.5 (5.0-8.0) Ur Specific [place] 1.003 (1.001-1.035) Urine Protein Negative (Negative) Urine Glucose (UA) Negative (Negative) Urine Ketones Negative (Negative) Urine Blood Negative (Negative) Urine Nitrite Negative (Negative) Urine Bilirubin Negative (Negative) Urine Urobilinogen <2.0 (<2.0) mg/dL Ur Leukocyte Esterase Small H (Negative) Urine RBC 1 (0-5) /hpf Urine WBC 3 (0-5) /hpf Urine Bacteria Few H (None) /hpf 05/13/21 05/13/21 Range/Units 17:38 17:38 WBC (3.8-10.6) k/uL RBC (4.30-5.90) m/uL Hgb (13.0-17.5) gm/dL Hct (39.0-53.0) % MCV (80.0-100.0) fL MCH (25.0-35.0) pg MCHC (31.0-37.0) g/dL RDW (11.5-15.5) % Plt Count (150-450) k/uL MPV Neutrophils % % Lymphocytes % % Monocytes % % Eosinophils % % Basophils % % Neutrophils # (1.3-7.7) k/uL Lymphocytes # (1.0-4.8) k/uL Monocytes # (0-1.0) k/uL Eosinophils # (0-0.7) k/uL Basophils # (0-0.2) k/uL PT (9.0-12.0) sec INR (<1.2) APTT (22.0-30.0) sec Sodium 139 (137-145) mmol/L Potassium 4.4 (3.5-5.1) mmol/L Chloride 103 (98-107) mmol/L Carbon Dioxide 25 (22-30) mmol/L Anion Gap 11 mmol/L BUN 16 (9-20) mg/dL Creatinine 0.96 (0.66-1.25) mg/dL Est GFR (CKD-EPI)AfAm 84 (>60 ml/min/1.73 sqM) Est GFR (CKD-EPI)NonAf 73 (>60 ml/min/1.73 sqM) Glucose 93 (74-99) mg/dL Calcium 10.5 H (8.4-10.2) mg/dL Magnesium 2.3 (1.6-2.3) mg/dL Total Bilirubin 0.6 (0.2-1.3) mg/dL AST 24 (17-59) U/L ALT 13 (4-49) U/L Alkaline Phosphatase 81 (38-126) U/L Troponin I 0.015 (0.000-0.034) ng/mL Total Protein 7.2 (6.3-8.2) g/dL Albumin 4.5 (3.5-5.0) g/dL Urine Color Urine Appearance (Clear) Urine pH (5.0-8.0) Ur Specific [place] (1.001-1.035) Urine Protein (Negative) Urine Glucose (UA) (Negative) Urine Ketones (Negative) Urine Blood (Negative) Urine Nitrite (Negative) Urine Bilirubin (Negative) Urine Urobilinogen (<2.0) mg/dL Ur Leukocyte Esterase (Negative) Urine RBC (0-5) /hpf Urine WBC (0-5) /hpf Urine Bacteria (None) /hpf - EKG Data -: EKG Interpreted by Me EKG Comments: 12-lead Electrocardiogram Interpretation Note EKG was reviewed and interpreted by myself. 12-lead ECG performed at 1658 is interpreted by me as revealing ventricular paced rhythm at a rate of 67 beats per minute. Normal axis. AK interval is unobtainable. QRS duration is 174 ms, QTC is 520 ms.. There were no ST or T wave abnormalities to suggest myocardial ischemia or injury. R wave progression across the precordium was satisfactory. It shows a ventricular paced rhythm in a patient with a known pacemaker. Pacemaker appears to be functioning.. Disposition Clinical Impression: Fatigue, Pacemaker battery depletion, Near syncope Disposition: ADMITTED IP TO THIS HOSP Condition: Fair
--- NOTE | 2021-05-14 01:32 | P.PN ---
Progress Note - Text Progress Note Date: 05/14/21 Advanced Care Planning: Diagnoses: Pacemaker dysfunction Discussion: Person(s) present and participating in discussion: Patient, Summary: Discussed the patient's goals of care in great detail. Both the patient and the at the bedside note that they have previously filled out paperwork outlining their wishes regarding resuscitation. They state that in the event that full recovery is unlikely, that they would not like to receive CPR or be placed on life support. Discussed the caveats of CPR and from forms of life support offered in further detail. The patient and his then noted that in the event of a cardiac arrest, they would like any efforts to resuscitate the patient and that he be allowed to pass peacefully. The patient would however consider elective forms of life support on the case by case basis. Will make the patient No-Code as per his wishes. A total of 20 minutes of face to face time was spent discussing advanced care planning.
[2021-05-14] MEDS: APIXABAN 5 MG TAB PO SCH ×2 (07:29→22:36)
--- NOTE | 2021-05-14 11:35 | P.CRDCN ---
History of Present Illness Consult date: 05/14/21 Requesting physician: Brendan Barger Reason for Consult (text): Pacemaker interrogation Chief complaint: dizziness, lightheadedness, hypotension History of present illness: This is a pleasant 85-year-old gentleman who follows with Dr. Fernández in the office. He has a known history of complete heart block, status post pacemaker implantation in 2012, hypertension, hyperlipidemia, paroxysmal atrial fibrillation anticoagulated on Eliquis, aortic stenosis which is moderate to severe in stable echo done in February of this year, normal coronaries by cardiac catheterization done in April 2020. He presented to the emergency department with complaints of lightheadedness, dizziness and near syncope at which time he noted his blood pressure to be low. He woke up yesterday morning and was not feeling well. He went out and golfed and afterwards became significantly lightheaded and dizzy and felt as if he could pass out. He was very weak. His blood pressure was quite low at home. He was concerned because at his last pacemaker interrogation in the office on the of this month he was told that estimated time to JOHN was less than one month. EKG on admission showed ventricular paced rhythm which appears to be pacing at VVI 65 and leads me to believe the device has reached JOHN as this particular device reverts to you the eye 65 when the device reaches JOHN. He had been feeling fine up until yesterday morning. In reviewing device interrogation done on admission a confirms that the device did reach JOHN on 05/12/2021. This would correlate with his symptoms of overall not feeling well but should not cause the dizziness, lightheadedness and near syncope or the low blood pressure. Current home medications include lisinopril 2.5 mg by mouth daily, omeprazole 40 mg daily, Antivert 25 mg by mouth 3 times a day as needed, digoxin 125 g by mouth daily, carvedilol 3.125 mg by mouth twice a day, atorvastatin 10 mg by mouth daily at bedtime and Eliquis I milligrams by mouth twice a day. Laboratory values on admission showed a normal CBC, potassium 4.4, UN 16, creatinine 0.96, troponin 0.015 and less than 0.0122. Blood pressure was initially 146/70 however has been on the low side since then running around 100 systolic. Heart rate has been steady at 65 bpm which correlates with underlying complete heart block and pacemaker set at VVI 65 bpm. Upon examination the patient is sitting up on the bed visiting with his . He is overall feeling fairly well this morning. He denies any current complaints of dizziness or lightheadedness. He has no complaints of shortness of breath, edema, orthopnea or PND. He's had no chest discomfort or palpitations. Past Medical History Past Medical History: Atrial Fibrillation, Asthma, Cancer, Eye Disorder, GERD/Reflux, Hearing Disorder / Deafness, Hyperlipidemia, Hypertension, Prostate Disorder, Skin Disorder, Vascular Disorder Additional Past Medical History / Comment(s): See Dr Bettencourt's H&P, Bryson's Esophagus,Self caths r/t prostate surg. since 2013, radiation 30 tx's on upper lip for tx of melanoma-last tx 04-21-19, Meniere's Disease, abd. aortic aneurysm-vasc. monitoring History of Any Multi-Drug Resistant Organisms: None Reported Past Surgical History: Appendectomy, Cardiac Ablation, Cholecystectomy, Heart Catheterization, Hernia Repair, Pacemaker, Prostate Surgery Additional Past Surgical History / Comment(s): "reemed the prostate-could not urinate on own post procedure", EGDs,Adhesions removed,maximo cataracts,laparoscopic kinsey fundoplication, left leg vein stripping Past Anesthesia/Blood Transfusion Reactions: No Reported Reaction Type of Cardiac Device: Permanent Pacemaker Device Placement Date:: 2012 [employer] Past Psychological History: No Psychological Hx Reported Smoking Status: Former smoker Past Alcohol Use History: None Reported Past Drug Use History: None Reported - Past Family History Mother Family Medical History: No Reported History Additional Family Medical History / Comment(s): Not pertinent for current admission Brother(s) Family Medical History: Cancer Father Additional Family Medical History / Comment(s): History of heart problems Medications and Allergies Home Medications Medication Instructions Recorded Confirmed Type Atorvastatin [Lipitor] 10 mg PO HS 04/22/19 05/13/21 History Cholecalciferol (Vitamin D3) 2,000 unit PO BID 04/22/19 05/13/21 History [Vitamin D3] Digoxin [Lanoxin] 125 mcg PO DAILY 04/22/19 05/13/21 History carvediloL [Coreg] 3.125 mg PO BID 04/22/19 05/13/21 History Meclizine [Antivert] 25 mg PO TID PRN 05/06/20 05/13/21 History Albuterol Sulfate [Ventolin HFA] 1 - 2 puff INHALATION RT-Q6H PRN 05/13/21 05/13/21 History Apixaban [Eliquis] 5 mg PO BID 05/13/21 05/13/21 History Omeprazole [PriLOSEC] 40 mg PO DAILY 05/13/21 05/13/21 History lisinopriL [Zestril] 2.5 mg PO DAILY 05/13/21 05/13/21 History Allergies Allergy/AdvReac Type Severity Reaction Status Date / Time No Known Allergies Allergy Verified 05/13/21 18:54 Physical Exam Vitals: Vital Signs Temp Pulse Pulse Resp BP BP Pulse Ox 05/14/21 08:00 61 18 05/14/21 07:00 98.0 F 65 18 108/71 98 05/14/21 02:19 97.5 F L 61 18 108/58 97 05/13/21 22:07 65 18 05/13/21 21:26 98.1 F 65 18 110/69 97 05/13/21 20:34 65 20 98/87 98 05/13/21 19:43 65 20 99/69 97 05/13/21 17:44 20 05/13/21 17:43 65 20 100/60 99 05/13/21 16:40 97.8 F 65 20 146/70 100 Intake and Output 05/13/21 05/14/21 05/14/21 22:59 06:59 14:59 Intake Total 250 Balance 250 Intake: Oral 250 Other: Voiding Method Self-Catheterization Self-Catheterization # Voids 2 Weight 87.543 kg PHYSICAL EXAMINATION: This is a 85-year-old male in no apparent distress at the time of my examination. VITAL SIGNS: Blood pressure 108/71, heart rate 65, respirations 18, temp 98.0F. Patient is 98 % on room air. HEENT: Head is atraumatic, normocephalic. Pupils are equal, round. Sclerae anicteric. Conjunctivae are clear. Mucous membranes of the mouth are moist. Neck is supple. There is no elevated jugular venous pressure. No carotid bruit is heard. CHEST EXAMINATION: Clear to auscultation bilaterally. No wheezes rales or rhonchi. Respirations even and nonlabored. HEART EXAMINATION: Heart regular, positive S1 and S2. No S3. No S4. With a systolic murmur at the base that radiates to the neck. ABDOMEN: Soft, nontender. Bowel sounds are heard. No organomegaly noted. EXTREMITIES: 2+ peripheral pulses with no evidence of peripheral edema and no calf tenderness noted. NEUROLOGIC EXAMINATION: Patient is awake, alert and oriented x3. Results 05/13/21 17:38 05/13/21 17:38 Cardiac Enzymes 05/13/21 05/13/21 05/13/21 Range/Units 17:38 17:38 21:53 AST 24 (17-59) U/L Troponin I 0.015 <0.012 (0.000-0.034) ng/mL 05/14/21 Range/Units 05:27 AST (17-59) U/L Troponin I <0.012 (0.000-0.034) ng/mL Coagulation 05/13/21 Range/Units 17:38 PT 11.0 (9.0-12.0) sec APTT 26.1 (22.0-30.0) sec CBC 05/13/21 Range/Units 17:38 WBC 7.6 (3.8-10.6) k/uL RBC 5.44 (4.30-5.90) m/uL Hgb 16.8 (13.0-17.5) gm/dL Hct 48.5 (39.0-53.0) % Plt Count 153 (150-450) k/uL Comprehensive Metabolic Panel 05/13/21 Range/Units 17:38 Sodium 139 (137-145) mmol/L Potassium 4.4 (3.5-5.1) mmol/L Chloride 103 (98-107) mmol/L Carbon Dioxide 25 (22-30) mmol/L BUN 16 (9-20) mg/dL Creatinine 0.96 (0.66-1.25) mg/dL Glucose 93 (74-99) mg/dL Calcium 10.5 H (8.4-10.2) mg/dL AST 24 (17-59) U/L ALT 13 (4-49) U/L Alkaline Phosphatase 81 (38-126) U/L Total Protein 7.2 (6.3-8.2) g/dL Albumin 4.5 (3.5-5.0) g/dL Current Medications Generic Name Dose Route Start Last Admin Trade Name Freq PRN Reason Stop Dose Admin Apixaban 5 mg 05/13/21 21:45 05/14/21 07:29 Apixaban 5 Mg Tab PO 5 mg BID BILL Administration Protocol Atorvastatin Calcium 10 mg 05/13/21 21:45 05/13/21 22:06 Atorvastatin 10 Mg Tab PO 10 mg HS BILL Administration Lisinopril 2.5 mg 05/14/21 09:00 05/14/21 07:30 Lisinopril 2.5 Mg Tab PO 2.5 mg DAILY BILL Administration Meclizine HCl 25 mg 05/13/21 21:39 Meclizine 25 Mg Tab PO TID PRN Vertigo Intake and Output 05/13/21 05/14/21 05/14/21 22:59 06:59 14:59 Intake Total 250 Balance 250 Intake: Oral 250 Other: Voiding Method Self-Catheterization Self-Catheterization # Voids 2 Weight 87.543 kg 05/13/21 17:38 05/13/21 17:38 Assessment and Plan Assessment: #1 symptoms of lightheadedness, dizziness and near syncope in the setting of hypotension #2 symptoms of fatigue #3 complete heart block, status post pacemaker implantation 2012, pacemaker reached JOHN on 05/12/2021 #4 aortic stenosis, moderate to severe by echo, stable #5 hypertension #6 ventricular tachycardia, status post ablation #7 hyperlipidemia Plan: From cardiology's perspective we will hold lisinopril. Continue carvedilol. Continue Eliquis. We will check a digoxin level and if this is within range we will resume digoxin. Increase activity. Repeat echocardiogram to assess for progression of aortic valve stenosis. He will need to be set up as an outpatient soon for generator change however I don't feel that the device reaching JOHN is the cause for his acute symptoms of dizziness and near syncope. We will continue to follow patient for further recommendations accordingly. [employer] note has been reviewed, I agree with a documented findings and plan of care. Patient was seen and examined.
--- NOTE | 2021-05-14 11:39 | P.PN ---
Subjective Progress Note Date: 05/14/21 Patient seen and examined at bedside. Patient denies chest pain or shortness of breath. Patient is feeling a little bit better. However, he continues to feel tired. Cardiology did assess the patient. Patient is to have an echocardiogram. Patient's was in the room upon examination the patient. Patient's stated that patient used to have thyroid issues. However, his primary physician discontinued his medications for some reason. A TSH with reflex will be ordered today along with vitamin analysis. Vitals are within normal limits. No labs were drawn today. History: Patient is an 85-year-old male with a PMH of A. rocío on Eliquis, status post pacemaker placement ([employer]tr[employer]), and hypertension presented to the emergency room with complaints of chest discomfort, shortness of breath, nausea, and dizziness. Patient reports that he woke up this morning feeling more tired than usual. He reports he continued to have low energy throughout the day until about 3 PM when he suddenly developed constant, non-radiating, 5 out of 10 pressure-like epigastric discomfort with associated shortness of breath, nausea without emesis, and dizziness. He became alarmed and told his who [facility]. He reports that his symptoms resolved spontaneously shortly after presentation to the emergency room. He reported feeling back to his baseline at time of interview. Denied further complaints. Denied fever, chills, cough. Denied abdominal pain, vomiting, diarrhea. 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 He notes that the last and he had such symptoms was when he initially had his pacemaker placed nearly 10 years ago. Vital signs upon presentation were BP 146/70, pulse 65, respiratory rate 20, SpO2 100% on room air, and temperature 97.8F. EKG in the emergency room revealed the the patient rhythm at 67 bpm. Chest x-ray in the emergency room was unremarkable. Laboratory evaluation was remarkable for troponin of 0.015. He is being admitted to the medicine service under observation for cardiology evaluation and pacemaker interrogation. Objective - Vital Signs Vital signs: Vital Signs Temp 98.0 F 05/14/21 07:00 Pulse 61 05/14/21 08:00 Resp 18 05/14/21 08:00 BP 108/71 05/14/21 07:00 Pulse Ox 98 05/14/21 07:00 Intake & Output 05/13/21 05/14/21 05/14/21 18:59 06:59 18:59 Intake Total 250 Balance 250 Weight 87.543 kg 87.543 kg Intake: Oral 250 Other: Voiding Method Self-Catheterization Self-Catheterization # Voids 2 - Constitutional General appearance: Present: average body habitus - EENT Eyes: Present: PERRLA, normal appearance ENT: Present: hearing grossly normal - Neck Neck: Present: normal ROM Thyroid: bilateral: normal size - Respiratory Respiratory: bilateral: CTA - Cardiovascular Rhythm: regular Abnormal Heart Sounds: Present: systolic murmur - Gastrointestinal General gastrointestinal: Present: normal bowel sounds - Integumentary Integumentary: Present: normal - Neurologic Neurologic: Present: CNII-XII intact - Psychiatric Psychiatric: Present: A&O x's 3, appropriate affect, intact judgment & insight - Labs CBC & Chem 7: 05/13/21 17:38 05/13/21 17:38 Labs: Abnormal Lab Results - Last 24 Hours (Table) 05/13/21 05/13/21 Range/Units 17:38 17:38 Calcium 10.5 H (8.4-10.2) mg/dL Ur Leukocyte Esterase Small H (Negative) Urine Bacteria Few H (None) /hpf Assessment and Plan Assessment: 1. Fatigue rule out cardiac cause Cardiology recommendations appreciated Echocardiogram ordered Per cardiology unlikely pacemaker dysfunction Check TSH with reflex, vitamin B12, folate, and vitamin D 2. Shortness of breath and chest pain resolved 3. History of atrial fibrillation, hypertension, and hyperlipidemia Continue home medications 4. A.m. labs 5. GI DVT prophylaxis
--- NOTE | 2021-05-14 15:01 | ECHOF ---
Referral Reason:dizziness, near syncope, known MEASUREMENTS -------- HEIGHT: 177.8 cm WEIGHT: 81.6 kg BP: IVSd: 1.6 cm (0.6 - 1.1) LVIDd: 3.3 cm (3.9 - 5.3) LVPWd: 1.3 cm (0.6 - 1.1) IVSs: 1.9 cm LVIDs: 1.7 cm LVPWs: 1.8 cm Ao Diam: 3.5 cm (2.0 - 3.7) AV Cusp: 1.1 cm (1.5 - 2.6) LA Diam: 3.4 cm (2.7 - 3.8) MV E Chip: 1.01 m/s MV DecT: 274 ms MV A Chip: 0.57 m/s MV E/A Ratio: 1.79 AV maxP.42 mmHg AV meanP.96 mmHg RAP: 5.00 mmHg RVSP: 25.35 mmHg FINDINGS -------- Pacerwire seen in RV and RA. This was a technically difficult study with suboptimal views. The left ventricular size is normal. There is moderate concentric left ventricular hypertrophy. O verall left ventricular systolic function is normal with, an EF between 55 - 60 %. Left ventricular fillimg pressure cannot be estimated due to paced rhythm. The RV was not well visualized. The left atrial size is normal. The right atrial size is normal. There is moderate aortic valve sclerosis. There is severe aortic stenosis present. Peak/mean grad ient across the Aortic Valve is 62.42mmHg / 50.96mmHg. Moderate mitral annular calcification present. Mild mitral regurgitation is present. The tricuspid valve appears structurally normal. Mild tricuspid regurgitation present. Right vent ricular systolic pressure is normal at < 35 mmHg. The pulmonic valve was not well visualized. The aortic root size is normal. IVC Not well visulized. There is no pericardial effusion. CONCLUSIONS -------- 1. Pacerwire seen in RV and RA. 2. This was a technically difficult study with suboptimal views. 3. There is moderate concentric left ventricular hypertrophy. 4. Overall left ventricular systolic function is normal with, an EF between 55 - 60 %. 5. The left atrial size is normal. 6. There is moderate aortic valve sclerosis. 7. There is severe aortic stenosis present. 8. Peak/mean gradient across the Aortic Valve is 62.42mmHg / 50.96mmHg. 9. Moderate mitral annular calcification present. 10. Mild mitral regurgitation is present. 11. Mild tricuspid regurgitation present. 12. There is no pericardial effusion. BARREL WASHER: Noelle Rosenbaum RDCS
[2021-05-14 16:52] LABS: Folate, Serum 13.7 ng/mL
[2021-05-14] MEDS: carvediloL 3.125 MG TAB PO SCH (16:54)
[2021-05-14] MEDS: ATORVASTATIN 10 MG TAB PO SCH (22:36)
[2021-05-15] MEDS: APIXABAN 5 MG TAB PO SCH ×2 (07:22→22:08)
[2021-05-15] MEDS: PANTOPRAZOLE SODIUM 40 MG GRANULE PKT PO SCH (07:23)
[2021-05-15 09:53] LABS: Basophils # (A) 0.03 X 10*3/uL (0.00-0.10); Basophils % (A) 0.5 %; Eosinophils % (A) 1.6 %; HGB 15.2 g/dL (13.0-17.0); Lymphocytes # (A) 1.69 X 10*3/uL (0.90-5.00); Lymphocytes % (A) 26.8 %; MCH 30.2 pg (27.0-32.0); MCHC 33.8 g/dL (32.0-37.0); MCV 89.3 fL (80.0-97.0); Mean Platelet Volume 10.6 fL (9.5-12.2); Monocytes # (A) 0.69 X 10*3/uL (0.20-1.00); Neutrophils # (A) 3.77 X 10*3/uL (1.80-7.70); Neutrophils % (A) 59.8 %; Platelet Count 147 X 10*3/uL (140-440); RBC 5.04 X 10*6/uL (4.40-5.60); RDW 12.7 % (11.5-14.5)
[2021-05-15 10:10] LABS: African American GFR (CKD) 79.7 (60.0-200.0); Albumin 3.7 g/dL (3.80-4.90); Albumin/Globulin Ratio 1.61 (1.60-3.17); Anion Gap 4.7 mmol/L (4.00-12.00); Calcium 9.3 mg/dL (8.7-10.3); Carbon Dioxide 26.3 mmol/L (21.6-31.8); Globulin 2.3 g/dL (1.6-3.3); Magnesium 1.9 mg/dL (1.5-2.4); Non-African American GFR(CKD) 68.8 (60.0-200.0); Phosphorus 3.4 mg/dL (2.4-5.1); Potassium 4.2 mmol/L (3.5-5.5); Total Bilirubin 0.6 mg/dL (0.3-1.2)
--- NOTE | 2021-05-15 10:53 | P.PN ---
Subjective Progress Note Date: 05/15/21 Patient seen and examined at bedside. Patient denies chest pain or shortness of breath. Thyroid studies were normal as well as vitamin B12 and folic acid. Vitamin D is pending. Echocardiogram revealed ejection fraction of 55-60% with a significance of moderate aortic valve sclerosis, severe aortic stenosis, moderate mitral annular calcification, moderate concentric left ventricular hypertrophy. History: Patient is an 85-year-old male with a PMH of A. rocío on Eliquis, status post pacemaker placement ([employer]tr[employer]), and hypertension presented to the emergency room with complaints of chest discomfort, shortness of breath, nausea, and dizziness. Patient reports that he woke up this morning feeling more tired than usual. He reports he continued to have low energy throughout the day until about 3 PM when he suddenly developed constant, non-radiating, 5 out of 10 pressure-like epigastric discomfort with associated shortness of breath, nausea without emesis, and dizziness. He became alarmed and told his who activated EMS. He reports that his symptoms resolved spontaneously shortly after presentation to the emergency room. He reported feeling back to his baseline at time of interview. Denied further complaints. Denied fever, chills, cough. Denied abdominal pain, vomiting, diarrhea. Patient notes that on his last appointment with his skin installer nearly a month ago, he was infor med that his pacemaker had roughly 1 month of battery left. He notes that the last and he had such symptoms was when he initially had his pacemaker placed nearly 10 years ago. Vital signs upon presentation were BP 146/70, pulse 65, respiratory rate 20, SpO2 100% on room air, and temperature 97.8F. EKG in the emergency room revealed the the patient rhythm at 67 bpm. Chest x-ray in the emergency room was unremarkable. Laboratory evaluation was remarkable for troponin of 0.015. He is being admitted to the medicine service under observation for cardiology evaluation and pacemaker interrogation. Objective - Vital Signs Vital signs: Vital Signs Temp 98.1 F 05/15/21 07:00 Pulse 61 05/15/21 08:00 Resp 20 05/15/21 08:00 BP 76/48 05/15/21 07:00 Pulse Ox 98 05/15/21 07:00 Intake & Output 05/14/21 05/15/21 05/15/21 18:59 06:59 18:59 Intake Total 180 Output Total 300 Balance 180 -300 Intake: Oral 180 Output: Urine 300 Other: Voiding Method Self-Catheterization Self-Catheterization Self-Catheterization # Voids 1 2 - Exam General: [non toxic], [no distress], [appears at stated age] Derm: [warm], [dry] Head: [atraumatic], [normocephalic], [symmetric] Eyes: [EOMI], [no lid lag], [anicteric sclera] Mouth: [no lip lesion], [mucus membranes moist] Cardiovascular: [S1S2 reg], systolic murmur, [positive posterior tibial pulse bilateral], Lungs: [CTA bilateral], [no rhonchi, no rales] , [no accessory muscle use] Abdominal: [soft], [ nontender to palpation], [no guarding], [no appreciable organomegaly] Ext: [no gross muscle atrophy], [no edema], [no contractures] Neuro: [ CN II-XI grossly intact], [no focal neuro deficits] Psych: [Alert], [oriented], [appropriate affect] - Labs CBC & Chem 7: 05/15/21 05:29 05/15/21 05:29 Labs: Abnormal Lab Results - Last 24 Hours (Table) 05/14/21 Range/Units 12:15 Ionized Calcium Lizet 5.4 H (4.5-5.3) mg/dL Assessment and Plan Assessment: 1. Fatigue multifactorial especially due to cardiac valvular disease Echocardiogram revealed moderate aortic valve sclerosis, severe aortic stenosis, moderate mitral annular calcification, and moderate concentric left hypertrophy with normal ejection fraction of 55-60% Rule out UTI since patient straight caths himself Cardiology recommendations appreciated Weight vitamin D levels 2. History of atrial fibrillation, hypertension, and hyperlipidemia Continue home medications 3. A.m. labs 4. GI DVT prophylaxis
[2021-05-15] MEDS: carvediloL 3.125 MG TAB PO SCH (11:19)
[2021-05-15 11:27] LABS: Appearance,Urine Clear (Clear); Bacteria,Urine Moderate /hpf; Bilirubin,Urine Negative (Negative); Blood,Urine Negative (Negative); Color,Urine Light Yellow; Glucose,Urine (UA) Negative (Negative); Ketones,Urine Negative (Negative); Leukocyte Esterase,Urine Large (Negative); Mucus,Urine Rare /hpf; Nitrite,Urine Positive (Negative); Protein,Urine Negative (Negative); RBC,Urine 1 /hpf (0-5); Specific Gravity,Urine 1.006 (1.001-1.035); Urobilinogen,Urine <2.0 mg/dL (<2.0); WBC,Urine 18 /hpf (0-5)
[2021-05-15] MEDS: LEVOFLOXACIN 500MG-D5W PMX 500 MG in DEXTROSE/WATER 1 100ML.BAG IVPB SCH (12:47)
--- NOTE | 2021-05-15 13:11 | P.PN ---
Subjective Progress Note Date: 05/15/21 This is a pleasant 85-year-old gentleman who follows with Dr. Fernández in the office. He has a known history of complete heart block, status post pacemaker implantation in 2012, hypertension, hyperlipidemia, paroxysmal atrial fibrillation anticoagulated on Eliquis, aortic stenosis which is moderate to severe in stable echo done in February of this year, normal coronaries by cardiac catheterization done in April 2020. He presented to the emergency department with complaints of lightheadedness, dizziness and near syncope at which time he noted his blood pressure to be low. He woke up yesterday morning and was not feeling well. He went out and golfed and afterwards became significantly lightheaded and dizzy and felt as if he could pass out. He was very weak. His blood pressure was quite low at home. He was concerned because at his last pacemaker interrogation in the office on the of this month he was told that estimated time to JOHN was less than one month. EKG on admission showed ventricular paced rhythm which appears to be pacing at VVI 65 and leads me to believe the device has reached JOHN as this particular device reverts to you the eye 65 when the device reaches JOHN. He had been feeling fine up until yesterday morning. In reviewing device interrogation done on admission a confirms that the device did reach JOHN on 05/12/2021. This would correlate with his symptoms of overall not feeling well but should not cause the dizziness, lightheadedness and near syncope or the low blood pressure. Current home medications include lisinopril 2.5 mg by mouth daily, omeprazole 40 mg daily, Antivert 25 mg by mouth 3 times a day as needed, digoxin 125 g by mouth daily, carvedilol 3.125 m g by mouth twice a day, atorvastatin 10 mg by mouth daily at bedtime and Eliquis 5 mg by mouth twice a day. Laboratory values on admission showed a normal CBC, potassium 4.4, UN 16, creatinine 0.96, troponin 0.015 and less than 0.0122. Blood pressure was initially 146/70 however has been on the low side since then running around 100 systolic. Heart rate has been steady at 65 bpm which correlates with underlying complete heart block and pacemaker set at VVI 65 bpm. Upon examination the patient is sitting up on the bed visiting with his . He is overall feeling fairly well this morning. He denies any current complaints of dizziness or lightheadedness. He has no complaints of shortness of breath, edema, orthopnea or PND. He's had no chest discomfort or palpitations. 05/15/2021 Patient was seen and examined today sitting up in a chair. Overall he is feeling fairly well. He does complain of some mild dizziness but nothing like what he experienced prior to admission. Blood pressure remains low he is currently on carvedilol 3.125 mg by mouth twice a day. Lisinopril has been stopped. Echocardiogram with Doppler study showed a normal LV systolic function with an ejection fraction of 55-60%, severe aortic stenosis with a peak gradient of 62.42 mmHg and a mean gradient of 50.96 mmHg, mild MR and mild TR. Objective - Vital Signs Vital signs: Vital Signs Temp 98.1 F 05/15/21 07:00 Pulse 61 05/15/21 08:00 Resp 20 05/15/21 08:00 BP 101/66 05/15/21 10:29 Pulse Ox 98 05/15/21 07:00 Intake & Output 05/14/21 05/15/21 05/15/21 18:59 06:59 18:59 Intake Total 180 Output Total 300 750 Balance 180 -300 -750 Intake: Oral 180 Output: Urine 300 750 Other: Voiding Method Self-Catheterization Self-Catheterization Self-Catheterization # Voids 1 2 - Exam PHYSICAL EXAMINATION: HEENT: Head is atraumatic, normocephalic. Pupils equal, round. Neck is supple. There is no elevated jugular venous pressure. HEART EXAMINATION: Heart sounds regular, S1 and S2 with a systolic murmur at the base that radiates to the neck. CHEST EXAMINATION: Lungs are clear to auscultation. No chest wall tenderness is noted on palpation or with deep breathing. ABDOMEN: Soft, nontender. Bowel sounds are heard. No organomegaly noted. EXTREMITIES: 2+ peripheral pulses with no evidence of peripheral edema and no calf tenderness noted. NEUROLOGIC patient is awake, alert and oriented x3. . - Labs CBC & Chem 7: 05/15/21 05:29 05/15/21 05:29 Labs: Abnormal Lab Results - Last 24 Hours (Table) 05/15/21 05/15/21 Range/Units 05:29 10:58 Chloride 111 H (96-109) mmol/L Total Protein 6.0 L (6.2-8.2) g/dL Albumin 3.70 L (3.80-4.90) g/dL Ur Leukocyte Esterase Large H (Negative) Urine WBC 18 H (0-5) /hpf Urine Bacteria Moderate H (None) /hpf Urine Mucus Rare H (None) /hpf Assessment and Plan Assessment: #1 symptoms of lightheadedness, dizziness and near syncope in the setting of hypotension #2 symptoms of fatigue #3 complete heart block, status post pacemaker implantation 2012, pacemaker reached JOHN on 05/12/2021 #4 aortic stenosis, moderate to severe by echo, stable #5 hypertension #6 ventricular tachycardia, status post ablation #7 hyperlipidemia Plan: From cardiology's perspective we will discontinue her atenolol and start the patient on low-dose metoprolol 12.5 mg by mouth twice a day. Resume digoxin. He will need to be set up as an outpatient soon for generator change however I don't feel that the device reaching JOHN is the cause for his acute symptoms of dizziness and near syncope. YARD PILOT note has been reviewed, I agree with a documented findings and plan of care. Patient was seen and examined.
[2021-05-15] MEDS: ATORVASTATIN 10 MG TAB PO SCH (22:08)
[2021-05-15] MEDS: METOPROLOL TARTRATE 12.5 MG TAB PO SCH (22:08)
[2021-05-16 01:42] VITALS: RESP 16
[2021-05-16 07:38] VITALS: BP 106/69; PULSE 62; TEMP 97.7
[2021-05-16] MEDS: PANTOPRAZOLE SODIUM 40 MG GRANULE PKT PO SCH (08:41)
[2021-05-16] MEDS: APIXABAN 5 MG TAB PO SCH (08:41)
[2021-05-16] MEDS: METOPROLOL TARTRATE 12.5 MG TAB PO SCH (08:41)
[2021-05-16] MEDS ORDERED: DIGOXIN 125 MCG TAB PO SCH (09:00)
--- NOTE | 2021-05-16 11:00 | P.PN ---
Subjective Progress Note Date: 05/16/21 HISTORY OF PRESENT ILLNESS: This is a pleasant 85-year-old gentleman who follows with Dr. Fernández in the office. He has a known history of complete heart block, status post pacemaker implantation in 2012, hypertension, hyperlipidemia, paroxysmal atrial fibrillation anticoagulated on Eliquis, aortic stenosis which is moderate to severe in stable echo done in February of this year, normal coronaries by cardiac catheterization done in April 2020. He presented to the emergency department with complaints of lightheadedness, dizziness and near syncope at which time he noted his blood pressure to be low. He woke up yesterday morning and was not feeling well. He went out and golfed and afterwards became significantly lightheaded and dizzy and felt as if he could pass out. He was very weak. His blood pressure was quite low at home. He was concerned because at his last pacemaker interrogation in the office on the of this month he was told that estimated time to JOHN was less than one month. EKG on admission showed ventricular paced rhythm which appears to be pacing at VVI 65 and leads me to believe the device has reached JOHN as this particular device reverts to you the eye 65 when the device reaches JOHN. He had been feeling fine up until yesterday morning. In reviewing device interrogation done on admission a confirms that the device did reach JOHN on 05/12/2021. This would correlate with his symptoms of overall not feeling well but should not cause the dizziness, lightheadedness and near syncope or the low blood pressure. Current home medications include li sinopril 2.5 mg by mouth daily, omeprazole 40 mg daily, Antivert 25 mg by mouth 3 times a day as needed, digoxin 125 g by mouth daily, carvedilol 3.125 mg by mouth twice a day, atorvastatin 10 mg by mouth daily at bedtime and Eliquis 5 mg by mouth twice a day. Laboratory values on admission showed a normal CBC, potassium 4.4, UN 16, creatinine 0.96, troponin 0.015 and less than 0.0122. Blood pressure was initially 146/70 however has been on the low side since then running around 100 systolic. Heart rate has been steady at 65 bpm which correlates with underlying complete heart block and pacemaker set at VVI 65 bpm. Upon examination the patient is sitting up on the bed visiting with his . He is overall feeling fairly well this morning. He denies any current complaints of dizziness or lightheadedness. He has no complaints of shortness of breath, edema, orthopnea or PND. He's had no chest discomfort or palpitations. 05/15/2021 Patient was seen and examined today sitting up in a chair. Overall he is feeling fairly well. He does complain of some mild dizziness but nothing like what he experienced prior to admission. Blood pressure remains low he is currently on carvedilol 3.125 mg by mouth twice a day. Lisinopril has been stopped. Echocardiogram with Doppler study showed a normal LV systolic function with an ejection fraction of 55-60%, severe aortic stenosis with a peak gradient of 62.42 mmHg and a mean gradient of 50.96 mmHg, mild MR and mild TR. 05/16/2021 Patient examined this morning at the bedside. Patient reports lightheadedness which she states is chronic secondary to his Mnire's disease. He denies chest pain or pressure. He denies shortness of breath. Blood pressure is stable this morning at 106/69. He is on room air with oxygen saturations greater than 92%. PHYSICAL EXAM: VITAL SIGNS: Reviewed. GENERAL: Well-developed in no acute distress. NECK: Supple. No JVD or thyromegaly LUNGS: Respirations even and unlabored. Lungs essentially clear to auscultation bilaterally. HEART: Regular rate and rhythm. S1 and S2 heard. Systolic murmur noted. EXTREMITIES: Normal range of motion. No clubbing or cyanosis. Peripheral pulses intact. No lower extremity edema ASSESSMENT: #1 symptoms of lightheadedness, dizziness and near syncope in the setting of hypotension #2 symptoms of fatigue #3 complete heart block, status post pacemaker implantation 2012, pacemaker reached JOHN on 05/12/2021 #4 aortic stenosis, moderate to severe by echo, stable #5 hypertension #6 ventricular tachycardia, status post ablation #7 hyperlipidemia PLAN: Continue current medications Patient is stable for discharge home today He is to follow up outpatient with Dr. Fernández to set up for pacemaker generator change Nurse practitioner note has been reviewed by physician. Signing provider agrees with the documented findings, assessment, and plan of care. Objective - Vital Signs Vital signs: Vital Signs Temp 97.7 F 05/16/21 07:00 Pulse 62 05/16/21 07:00 Resp 16 05/16/21 08:00 BP 106/69 05/16/21 07:00 Pulse Ox 99 05/16/21 07:00 Intake & Output 05/15/21 05/16/21 05/16/21 18:59 06:59 18:59 Intake Total 180 480 Output Total 750 Balance -570 480 Intake: Oral 180 480 Output: Urine 750 Other: Voiding Method Self-Catheterization Self-Catheterization Self-Catheterization # Voids 2 - Labs CBC & Chem 7: 05/15/21 05:29 05/15/21 05:29 Labs: Abnormal Lab Results - Last 24 Hours (Table) 05/15/21 Range/Units 10:58 Ur Leukocyte Esterase Large H (Negative) Urine WBC 18 H (0-5) /hpf Urine Bacteria Moderate H (None) /hpf Urine Mucus Rare H (None) /hpf Microbiology - Last 24 Hours (Table) 05/15/21 10:58 Urine Culture - Preliminary Urine,Voided
[2021-05-16] MEDS: LEVOFLOXACIN 500MG-D5W PMX 500 MG in DEXTROSE/WATER 1 100ML.BAG IVPB SCH (11:48)
--- NOTE | 2021-05-16 13:16 | P.DS ---
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 Hospital Course: Patient is a very pleasant 85-year-old male with a past medical history of atrial fibrillation on Eliquis, moderate to severe aortic stenosis, CAD with history of complete heart block status post pacemaker placement (Medtronic), hypertension, hyperlipidemia, and GERD. He presented to the emergency department on 05/13/21 with a chief complaint of chest discomfort, shortness of breath, fatigue, nausea, and dizziness. EKG obtained revealing a ventricular paced rhythm at 67 bpm. Echocardiogram completed revealing a normal ejection fraction between 55 and 60%. Chest x-ray negative for acute cardiopulmonary process.Labs reveal digoxin level less than 0.4. TSH normal findings at 1.940. Folate and vitamin B 12 normal findings. Troponins normal findings. CBC and BMP unremarkable. Urinalysis showing leukocytes with only 18 WBCs, and urine culture pending. Patient was admitted under our services with consultation to cardiology for continued close medical management. Echocardiogram was completed revealing and normally ejection fraction between 55 and 60% with severe aortic stenosis present. Secondary to hypotensive episodes, Cardiology discontinued lisinopril and Coreg at this time and placed patient on metoprolol 12.5 mg twice daily. Patient was then cleared from cardiac standpoint with recommendations to progressively increase activity, and set patient up outpatient for pacemaker battery change. Patient and his were updated on medication changes and recommendations to follow up with cardiology and PCP. Patient's vital signs stable and he is clear from any cardiac complaints at this time. Medically stable for discharge home. Physical exam: Patient seen and fully evaluated at the bedside this morning. Patient reports being free from headache, lightheadedness, dizziness, chest pain, palpitations, shortness of breath, dyspnea with exertion, or experiencing any numbness/Dylon/weakness in his extremities. He was sitting up on the edge of bed just finished breakfast talking with at bedside. Vital signs reviewed and stable. General: Nontoxic, no distress and appears stated age. Derm: Skin warm and dry, normal coloration for ethnicity. Head: Atraumatic, normocephalic and symmetric. Eyes: EOMs intact, no lid lag, and anicteric sclera Mouth: no lip lesions, mucus membranes moist Cardiovascular: regular rate and rhythm with normal S1S2, no murmur, positive posterior tibial pulses bilaterally, and cap refill < 2 seconds. Pacemaker left anterior chest. Lungs: Respirations even, regular, and unlabored on room air. Lungs CTA bilaterally, no rhonchi, no rales, no wheezing, and no accessory muscle usage. Abdominal: soft, nontender to palpation, no guarding, no appreciable organomegal y Ext: ROM intact. No gross muscle atrophy, no edema, no contractures Neuro: Speech clear, face symmetrical and CN II-XII grossly intact with no noted focal neuro deficits Psych: Alert and oriented to person, place, time, and situation. Appropriate and pleasant affect. A total of 45 minutes of time were spent preparing this complex discharge summary. . Patient Condition at Discharge: Stable Plan - Discharge Summary Discharge Rx Participant: Yes New Discharge Prescriptions: New Metoprolol Tartrate [Lopressor] 12.5 mg PO BID #60 tab Continue Digoxin [Lanoxin] 125 mcg PO DAILY Cholecalciferol (Vitamin D3) [Vitamin D3] 2,000 unit PO BID Atorvastatin [Lipitor] 10 mg PO HS Meclizine [Antivert] 25 mg PO TID PRN PRN Reason: Vertigo Apixaban [Eliquis] 5 mg PO BID Albuterol Sulfate [Ventolin HFA] 1 - 2 puff INHALATION RT-Q6H PRN PRN Reason: Shortness Of Breath Omeprazole [PriLOSEC] 40 mg PO DAILY Discontinued carvediloL [Coreg] 3.125 mg PO BID lisinopriL [Zestril] 2.5 mg PO DAILY Discharge Medication List Atorvastatin [Lipitor] 10 mg PO HS 04/22/19 [History] Cholecalciferol (Vitamin D3) [Vitamin D3] 2,000 unit PO BID 04/22/19 [History] Digoxin [Lanoxin] 125 mcg PO DAILY 04/22/19 [History] Meclizine [Antivert] 25 mg PO TID PRN 05/06/20 [History] Albuterol Sulfate [Ventolin HFA] 1 - 2 puff INHALATION RT-Q6H PRN 05/13/21 [History] Apixaban [Eliquis] 5 mg PO BID 05/13/21 [History] Omeprazole [PriLOSEC] 40 mg PO DAILY 05/13/21 [History] Metoprolol Tartrate [Lopressor] 12.5 mg PO BID #60 tab 05/16/21 [Rx] Follow up Appointment(s)/Referral(s): German Fernández MD [Family Provider] - 06/01/21 10:15 am (Set up for pacemaker generator change Device check 05/26/21 [address]) Malena Tuttle MD [Primary Care Provider] - 05/24/21 10:40 am Patient Instructions/Handouts: Heart Healthy Diet (DC), Syncope (DC) Activity/Diet/Wound Care/Special Instructions: Activity: As tolerated, remember to change positions slowly and take breaks as needed. Diet: Heart healthy diet Special Instructions: Due to hypotensive episodes, cardiology has discontinued your lisinopril and Coreg and started you on metoprolol 12.5 mg tablets twice daily. You will need to follow up with cardiology, Dr. Fernández, and your PCP Dr. Tuttle as scheduled. Thank you for allowing us to participate in your care, it was a pleasure having you for our patient! Discharge Disposition: HOME SELF-CARE <Shelby Lu - Last Filed: 05/16/21 19:39> Providers Date of admission: 05/13/21 19:57 Attending physician: Brendan Barger MD Primary care physician: Malena Tuttle [facility] Course: Darío Johnson NP rendered care for this patient independently, reviewed the findings and plan as documented in the note above. I did not physically speak with or examine the patient on this date.
== END 2021-05-16 14:20 | disposition home or self-care (01) ==
LOC: EC 16:39 → 6NMEDSUR 19:57
PROVIDERS: ADMIT Internal Medicine; ATTEND Internal Medicine
DX: R55 Syncope and collapse (principal); I95.9 Hypotension, unspecified; I48.0 Paroxysmal atrial fibrillation; I35.0 Nonrheumatic aortic (valve) stenosis; I25.10 Atherosclerotic heart disease of native coronary artery without angina pectoris; Z79.899 Other long term (current) drug therapy; Z79.01 Long term (current) use of anticoagulants; Z95.0 Presence of cardiac pacemaker; Z87.891 Personal history of nicotine dependence; Y71.2 Prosthetic and other implants, materials and accessory cardiovascular devices associated with adverse incidents; E78.5 Hyperlipidemia, unspecified; H81.09 Meniere's disease, unspecified ear; H91.90 Unspecified hearing loss, unspecified ear; I10 Essential (primary) hypertension; I44.2 Atrioventricular block, complete; J45.909 Unspecified asthma, uncomplicated; K21.9 Gastro-esophageal reflux disease without esophagitis; K22.70 Barrett's esophagus without dysplasia; N39.0 Urinary tract infection, site not specified; T82.119A Breakdown (mechanical) of unspecified cardiac electronic device, initial encounter
CPT/HCPCS: 99285; 96365; 93005 ×2; 36415; 82652; 84153; 80053 ×2; 84443; 82330; 82607; 80162; 82746; 83735 ×2; 84100; 84484 ×2; 85025 ×2; 85610; 85730; 81001 ×2; 87086; 87077; 87186; 71046; G0378 ×4; C8929; J1956 ×2; Q9950; 93306

== ENCOUNTER 2021-05-23 05:41 | Day surgery (SDC) | payer MEDICARE ==
[2021-05-20 08:40] VITALS: BMI 25.7
[2021-05-23] MEDS ORDERED: SODIUM CHLORIDE 0.9% 500 ML 500 ML IV ONE (06:11)
[2021-05-23 06:25] VITALS: BP 136/73; RESP 16; TEMP 98.6
[2021-05-23] MEDS ORDERED: IOPAMIDOL-250 50ML BTL IV ONE (07:20)
[2021-05-23 07:57] VITALS: PULSE 76
--- NOTE | 2021-05-23 08:16 | P.EPPROC ---
- EP Procedure Note Electrophysiology Procedure Note: Diagnosis Complete heart block Dual-chamber pacemaker with 100% pacing Device at JOHN with ventricular pacing only Patient symptomatic, syncope Left upper extremity venogram 10 mL every dye injected in the left arm Patent left axillary and subclavian venous system Cinefluoroscopy of the leads Atrial lead and right atrial appendage RV lead in low RV septum No fractures or breaks noted Plan Patient has reached JOHN for normal battery depletion He is ventricular pacing only at this time is quite symptomatic In addition he has had 100% RV pacing and at the time of battery generator change, the dose of the upgrade to a biventricular pacemaker for biventricular pacing In the future reassessment of his aortic stenosis
== END 2021-05-23 08:05 | disposition home or self-care (01) ==
LOC: CATHEP 05:41
PROVIDERS: ATTEND Internal Medicine Clinical Cardiac Electrophysiology
DX: Z45.02 Encounter for adjustment and management of automatic implantable cardiac defibrillator (principal); I44.2 Atrioventricular block, complete; E78.5 Hyperlipidemia, unspecified; I47.2 Ventricular tachycardia; I35.0 Nonrheumatic aortic (valve) stenosis; I48.0 Paroxysmal atrial fibrillation; I10 Essential (primary) hypertension; Z72.0 Tobacco use; Z79.01 Long term (current) use of anticoagulants; Z79.899 Other long term (current) drug therapy
CPT/HCPCS: 36005; 75820; Q9966

== ENCOUNTER 2021-05-26 10:05 | Day surgery (SDC) | payer MEDICARE ==
[2021-05-24 09:39] VITALS: BMI 25.7
[~2021-05-26 10:05] MED LIST changes: -ALPRAZolam 0.25 MG TAB PO PRN; -ALPRAZolam 0.5 MG TAB PO PRN; -ASPIRIN 325 MG TAB PO STA; -ATORVASTATIN 80 MG TAB PO STA; +DEXAMETHASONE SOD PHOSPHATE 4 MG/ML 1 ML VIAL IV ONE; -HEPARIN SODIUM 1,000 UN/ML (10ML VL) IV ONE; -HEPARIN SODIUM 1,000 UN/ML (10ML VL) ONE; -IOPAMIDOL-370 100ML BTL INJ ONE; +LACTATED RINGERS 1,000 ML IV SCH; +LIDOCAINE 1% (10MG/ML) FOR IV START INTRADERMA PRN; -LIDOCAINE 1% INJ 10MG/ML (20 ML MDV) ONE; -LIDOCAINE 1% INJ 10MG/ML (20 ML MDV) SQ ONE; -MIDAZOLAM 2 MG/2 ML VIAL IV ONE; -NITROGLYCERIN SL TABS 0.4 MG TAB SUBLINGUAL PRN; +ONDANSETRON 4 MG/2 ML VIAL IVP ONE; -RX INFO: IV CONTRAST WAS GIVEN 1 EACH MISC MISCELLANE PRN; -SODIUM CHLORIDE 0.9% 1,000 ML in EMPTY BAG 1 BAG IV ONE; -VERAPAMIL 2.5 MG/ML 2 ML AMP ONE; -VERAPAMIL SYRINGE (5 MG/10 ML) INTRAARTER ONE; +ceFAZolin 1 GM in SODIUM CHLORIDE 0.9% 250 ML IRRIGATION PRN; -fentaNYL (PF) 50 MCG/ML 2 ML AMP IV ONE; -fentaNYL (PF) 50 MCG/ML 2 ML AMP ONE
[2021-05-26] MEDS ORDERED: SODIUM CHLORIDE 0.9% 1,000 ML IV ONE (10:15)
[2021-05-26] MEDS ORDERED: VANCOMYCIN 1,500 MG in SODIUM CHLORIDE 0.9% 250 ML IVPB STA (10:40)
[2021-05-26] MEDS ORDERED: MIDAZOLAM 2 MG/2 ML VIAL ONE (14:06)
[2021-05-26] MEDS ORDERED: fentaNYL (PF) 50 MCG/ML 2 ML AMP ONE (14:06)
[2021-05-26] MEDS ORDERED: diphenhydrAMINE 50 MG/ML 1 ML VIAL ONE (14:06)
[2021-05-26] MEDS ORDERED: LIDOCAINE 1% INJ 10MG/ML (20 ML MDV) ONE (14:48)
[2021-05-26] MEDS ORDERED: LIDOCAINE 1% INJ 10MG/ML (20 ML MDV) SQ ONE (14:55)
[2021-05-26] MEDS ORDERED: IOPAMIDOL-250 50ML BTL IV ONE (16:53)
[2021-05-26] MEDS ORDERED: ACETAMINOPHEN TAB 325 MG TAB PO PRN (16:57)
[2021-05-26] MEDS ORDERED: ACETAMINOPHEN IV (For NPO) 1,000 MG in EMPTY BAG 1 BAG IVPB ONE (16:57)
--- NOTE | 2021-05-26 17:03 | P.PCN ---
Preoperative Diagnosis: Patient has complete heart block with 100% RV pacing His device was at JOHN on a normal battery depletion he underwent an upgrade to a biventricular pacemaker His LV function is normal He does have at least moderate severe aortic stenosis Young sinus venography revealed a very large aureus and his body and a very large lateral vein. He is a middle cardiac vein at very diminutive anterior veins The LV lead, screw-in Medtronic lead was placed in this very large veins, lateral vein The lateral vein had to tributaries and that the lead tip was implanted in the upper telemetry and screwed in and was found to be stable However on account of the size of the vein and the proximal LV poles had high outputs. LV 1 and LV to poles had very good thresholds The patient has been programmed to DDDR with AV delay of 130/100 ms Non-adaptive mode with an LV offset of -30 ms
--- NOTE | 2021-05-26 17:38 | CE ---
CARDIAC ELECTROPHYSIOLOGY REPORT DATE OF SERVICE: Dhaval Yang is an 85-year-old male patient with complete heart block who has a dual- chamber pacemaker implanted 7 years back. His device is at [facility], [place]. He is brought in for an upgrade to a biventricular pacemaker with implantation of an LV lead as well as generator change to a biventricular pacemaker generator. Patient was brought to the EP lab in a fasting state. Written informed consent was obtained prior to the procedure. The left shoulder area was prepped and draped as per protocol. 1% lidocaine was used for local anesthesia. IV vancomycin was given prior to the procedure also. Incision made directly over the previous surgical site and carried down to the level of the pectoralis muscle. A subfascial pocket was entered and expanded and enlarged. Partial capsulectomy was performed. The left axillary vein access was obtained and a sheath was placed. Via this a coronary sinus sheath was placed. The coronary sinus was accessed and coronary sinus venography was performed. Venography revealed a very large coronary sinus body and very large lateral vein. The lateral vein was significantly larger than most lateral veins I have ever seen. However, his anterior lateral and anterior veins were very diminutive. Therefore, this vein was sub-selected and the screw-in LV lead was placed in the upper tributary of this LV vein. The LV lead was model #4798, length 88 cm in length and serial #[id number]. The lead was screwed in and stability was confirmed. Pacing thresholds from LV poles 1 and 2 were excellent without any diaphragmatic stimulation. The final threshold was 1 V at 0.4 milliseconds. However, in the proximal poles, the thresholds were very high, close to non capture and most likely on account of the size of the LV vein as compared with the LV lead. The lead was then secured to the underlying pectoralis fascia after removing the sheath. The right atrial lead was a [employer] model #5076, 45 cm length and serial number [id number] that has been originally implanted in 2013 in the right atrial appendage. Pacing impedance 437 ohms, P waves 2.9 mV, pacing threshold 0.75 V at 0.4 milliseconds. The RV lead had been chronically implanted in the RV apex. This was model #5076, 58 cm in length and serial number [id number]. There were no R-waves. Patient is pacemaker dependent. Pacing impedance 380 ohms, pacing threshold 1.5 V at 1 millisecond. The LV pacing impedance was 1444 ohms. The threshold 1 V at 0.4 milliseconds in the LV 1-LV 2 by poles. The old generator was explanted. The new generator was implanted. This was a Giselle Quad DRY KILN BURNER P MRI model number W4TR02, serial number [id number]. The leads and generator were then placed in subfascial pocket. The device was secured to the underlying pectoralis muscle and the wound was closed in 3 layers and dressed per protocol. The device was then programmed to DDDR mode, paced AV delay of 130 milliseconds, sensed AV delay of 100 milliseconds, non adaptive mode with an LV offset of -30 milliseconds. Patient tolerated the procedure well without any acute complications. RESULT: 1. Successful upgrade to a biventricular pacemaker with implantation of a new LV lead in this very large lateral vein. 2. Explantation of an old generator and implantation of a new biventricular pacemaker generator. MMODL / IJN: [id number] /
--- NOTE | 2021-05-26 19:54 | XR ---
EXAMINATION TYPE: XR chest 1V portable DATE OF EXAM: 05/26/2021 COMPARISON: 05/13/2021 and prior HISTORY: 85 years Male. STUDY INDICATION GIVEN: Chest pain TECHNIQUE: AP portable chest radiograph FINDINGS AND IMPRESSION: Cardiac device projects over the lateral mid left chest with 3 leads. Mild pulmonary edema similar to prior study with no cardiomegaly. No focal airspace disease, pneumothorax or pleural effusion. Mild subsegmental bibasilar atelectasis. Nodular densities in the right chest appears stable since 2012. No acute osseous abnormality. Gas-filled distended bowel loops in the upper abdomen. Linear clips projecting over the right upper q uadrant could be postsurgical.
[2021-05-26] MEDS ORDERED: ALBUTEROL HFA INHALER INHALATION PRN (20:20)
[2021-05-26] MEDS ORDERED: ATORVASTATIN 10 MG TAB PO SCH (21:00)
[2021-05-26] MEDS: METOPROLOL TARTRATE 12.5 MG TAB PO SCH (22:25)
[2021-05-26] MEDS: CHOLECALCIFEROL 25 MCG (1000 IU) TABLET PO SCH (22:26)
[2021-05-26] MEDS: DIGOXIN 125 MCG TAB PO SCH (22:27)
[2021-05-27 03:04] VITALS: RESP 16
[2021-05-27] MEDS ORDERED: PANTOPRAZOLE 40 MG TABLET PO SCH (07:30)
[2021-05-27] MEDS: DIGOXIN 125 MCG TAB PO SCH (07:53)
[2021-05-27] MEDS: METOPROLOL TARTRATE 12.5 MG TAB PO SCH (07:53)
[2021-05-27] MEDS: CHOLECALCIFEROL 25 MCG (1000 IU) TABLET PO SCH (07:53)
[2021-05-27] MEDS ORDERED: APIXABAN 5 MG TAB PO SCH (09:00)
--- NOTE | 2021-05-27 11:37 | DS ---
DISCHARGE SUMMARY Mr. Yang is an 85-year-old male patient who has complete heart block status post dual-chamber pacemaker in the past. His device is at [facility] and he is brought in for an upgrade to a biventricular pacemaker. He is at 100% RV pacing. He underwent successful implantation of the LV lead in a very large lateral vein. He tolerated the procedure well without any acute complications. His followup chest x-ray did not show any evidence for pneumothorax. He is paced on telemetry and his blood pressure is in the normal range. Heart rates are normal. No JVD. Lungs are clear. No rhonchi, no crackles. The pacemaker site is healing well. There is no soakage. No hematoma. Heart sounds S1 soft, ejection systolic murmur of aortic stenosis noted. Abdomen is soft, nontender. Extremities are warm. IMPRESSION: 1. Complete heart block. 2. Dual-chamber pacemaker at JOHN for normal battery depletion. 3. Status post upgrade to a biventricular pacemaker successful. 4. Aortic stenosis. PLAN: IV antibiotics. Device interrogation and if this is within normal limits, he will be discharged home today and follow up in the device clinic in a week and follow up with me in the next 1-2 months. MMODL / IJN: [id number] /
[2021-05-27 14:38] VITALS: BP 121/71; PULSE 50; TEMP 98.2
== END 2021-05-27 15:32 | disposition home or self-care (01) ==
LOC: CATHEP 10:05 → 6NMEDSUR 16:38 → CATHEP 05-27 15:32
PROVIDERS: ATTEND Internal Medicine Clinical Cardiac Electrophysiology
DX: I44.2 Atrioventricular block, complete (principal); I35.0 Nonrheumatic aortic (valve) stenosis; I48.0 Paroxysmal atrial fibrillation; I10 Essential (primary) hypertension; E78.5 Hyperlipidemia, unspecified; Z72.0 Tobacco use; K21.9 Gastro-esophageal reflux disease without esophagitis; Z79.01 Long term (current) use of anticoagulants; Z79.899 Other long term (current) drug therapy
CPT/HCPCS: 33225; 33214; 71045; C1769 ×3; C1892; C1730; C1887; C2621; J2250; J3370; J1200; J0690 ×2; J2001; J3010; Q9966

== ENCOUNTER → 2021-06-08 | Outpatient (CLI) | payer MEDICARE ==
[2021-06-08 18:24] LABS: T4, Free (Free Thyroxine) 1.3 ng/dL (0.80-1.80)
== END | disposition home or self-care (01) ==
LOC: LABWHC1 10:03
PROVIDERS: ATTEND Internal Medicine Endocrinology, Diabetes & Metabolism
DX: E06.0 Acute thyroiditis (principal)
CPT/HCPCS: 36415; 84439; 84443; 84480

== ENCOUNTER 2022-03-25 20:51 | Emergency (ER) | payer MEDICARE ==
[2022-03-25 21:06] VITALS: BP 133/67; PULSE 65; RESP 16; TEMP 98.1
--- NOTE | 2022-03-25 21:54 | ED ---
Lower Extremity Injury HPI - General Chief Complaint: Recheck/Abnormal Lab/Rx Stated Complaint: R leg varicose vein burst Time Seen by Provider: 03/25/22 21:52 Source: patient, RN notes reviewed, old records reviewed Mode of arrival: ambulatory Limitations: no limitations - History of Present Illness Initial Comments: This is an 86-year-old male to the emergency department for evaluation. Patient does have significant wound to right ankle varicose vein. This occurred the shower prior to arrival. Patient is on [place]. No other injury noted. Len fu has no symptoms of lightheadedness dizziness or weakness. Complaint: leg injury, ankle injury -: hour(s) Injury: Ankle: Right Type of Injury: laceration (Puncture wound, varicosities) Place: home Severity: moderate Severity scale (1-10): 4 Improves With: nothing Worsens With: nothing Context: direct blow Associated Symptoms: ambulatory Treatments Prior to Arrival: bandage - Related Data Home Medications Medication Instructions Recorded Confirmed Atorvastatin [Lipitor] 10 mg PO HS 04/22/19 05/26/21 Cholecalciferol (Vitamin D3) 2,000 unit PO BID 04/22/19 05/26/21 [Vitamin D3] Digoxin [Lanoxin] 125 mcg PO DAILY 04/22/19 05/26/21 Meclizine [Antivert] 25 mg PO TID PRN 05/06/20 05/26/21 Apixaban [Eliquis] 5 mg PO BID 05/13/21 05/26/21 Omeprazole [PriLOSEC] 20 mg PO BID 05/13/21 05/26/21 Albuterol Sulfate [Proventil Hfa] 2 puff INHALATION DAILY PRN 05/20/21 05/26/21 Metoprolol Tartrate [Lopressor] 12.5 mg PO DAILY 05/20/21 05/26/21 Allergies Allergy/AdvReac Type Severity Reaction Status Date / Time No Known Allergies Allergy Verified 03/25/22 21:06 Review of Systems ROS Statement: Those systems with pertinent positive or pertinent negative responses have been documented in the HPI. ROS Other: All systems not noted in ROS Statement are negative. Past Medical History Past Medical History: Atrial Fibrillation, Asthma, Cancer, Eye Disorder, GERD/Reflux, Hearing Disorder / Deafness, Hyperlipidemia, Hypertension, Prostate Disorder, Skin Disorder, Vascular Disorder Additional Past Medical History / Comment(s): See Dr Bettencourt's H&P, Bryson's Esophagus,Self caths r/t prostate surg. since 2013, radiation 30 tx's on upper lip for tx of melanoma-last tx 04-21-19, Meniere's Disease, abd. aortic aneurysm-vasc. dr. kruse, recent uti with antibiotics History of Any Multi-Drug Resistant Organisms: None Reported Past Surgical History: Appendectomy, Cardiac Ablation, Cholecystectomy, Heart Catheterization, Hernia Repair, Pacemaker, Prostate Surgery Additional Past Surgical History / Comment(s): "reemed the prostate-could not urinate on own post procedure", EGDs,Adhesions removed,maximo cataracts,laparoscopic kinsey fundoplication, left leg vein stripping Past Anesthesia/Blood Transfusion Reactions: No Reported Reaction Type of Cardiac Device: Permanent Pacemaker Device Placement Date:: 2012 Medtronic Past Psychological History: No Psychological Hx Reported Smoking Status: Former smoker Past Alcohol Use History: None Reported Past Drug Use History: None Reported - Past Family History Mother Family Medical History: No Reported History Additional Family Medical History / Comment(s): Not pertinent for current admission Brother(s) Family Medical History: Cancer Father Additional Family Medical History / Comment(s): History of heart problems General Exam - General Exam Comments Initial Comments: Right ankle varicose veins still actively bleeding Limitations: no limitations General appearance: alert, in no apparent distress Head exam: Present: atraumatic, normocephalic, normal inspection Eye exam: Present: normal appearance, PERRL, EOMI. Absent: scleral icterus, conjunctival injection, periorbital swelling ENT exam: Present: normal exam, mucous membranes moist Neck exam: Present: normal inspection. Absent: tenderness, meningismus, lymphadenopathy Respiratory exam: Present: normal lung sounds bilaterally. Absent: respiratory distress, wheezes, rales, rhonchi, stridor Cardiovascular Exam: Present: regular rate, normal rhythm, normal heart sounds. Absent: systolic murmur, diastolic murmur, rubs, gallop, clicks GI/Abdominal exam: Present: soft, normal bowel sounds. Absent: distended, tenderness, guarding, rebound, rigid Extremities exam: Present: normal inspection, full ROM, normal capillary refill. Absent: tenderness, pedal edema, joint swelling, calf tenderness Back exam: Present: normal inspection Neurological exam: Present: alert, oriented X3, CN II-XII intact Psychiatric exam: Present: normal affect, normal mood Skin exam: Present: warm, dry, intact, normal color. Absent: rash Course Vital Signs 03/25/22 21:03 Temperature 98.1 F Pulse Rate 65 Respiratory 16 Rate Blood Pressure 133/67 O2 Sat by Pulse 97 Oximetry - Reevaluation(s) Reevaluation #1: 03/25/22 22:10 Medical records reviewed Reevaluation #2: 03/25/22 22:10 Vein is repaired without difficulty Reevaluation #3: 03/25/22 22:11 Patient has no current complaints Procedures - Laceration Laceration #1 Consent Obtained: verbal consent Indication: laceration (Puncture wound varicose vein) Site: lower extremity Size (cm): 1 Description: linear Pre-repair: wound explored Type of Sutures: nylon Size of Sutures: 4-0 Technique: other ([id number] suture) Medical Decision Making - Medical Decision Making 86 male does have right pain varicose varicosity that is actively bleeding, fixed with which to urinate suture. No active bleeding, wound is bandaged and patient will be discharged Disposition Clinical Impression: Hemorrhage of varicose veins of right lower extremity Disposition: HOME SELF-CARE Condition: Good Instructions (If sedation given, give patient instructions): Care For Your Stitches (ED) Is patient prescribed a controlled substance at d/c from ED?: No Referrals: Clarence Cordero MD [Primary Care Provider] - 1-2 days
== END 2022-03-25 22:34 | disposition home or self-care (01) ==
LOC: EC 20:51
DX: I83.891 Varicose veins of right lower extremity with other complications (principal); E78.5 Hyperlipidemia, unspecified; I10 Essential (primary) hypertension; I48.91 Unspecified atrial fibrillation; J45.909 Unspecified asthma, uncomplicated; K21.9 Gastro-esophageal reflux disease without esophagitis; Z79.01 Long term (current) use of anticoagulants; Z87.891 Personal history of nicotine dependence; Z95.0 Presence of cardiac pacemaker; Z79.899 Other long term (current) drug therapy
CPT/HCPCS: 12001; 99282

== ENCOUNTER → 2022-08-21 | Outpatient (CLI) | payer MEDICARE ==
[2022-08-21 14:29] LABS: African American GFR (CKD) 80.3 (60.0-200.0); Anion Gap 12.2 mmol/L (10.00-18.00); Blood Urea Nitrogen 11.7 mg/dL (9.0-27.0); Carbon Dioxide 26.7 mmol/L (20.0-27.5); HCT 46.5 % (39.6-50.0); HGB 15.3 g/dL (13.0-17.0); MCH 29.5 pg (27.0-32.0); MCHC 32.9 g/dL (32.0-37.0); MCV 89.8 fL (80.0-97.0); Mean Platelet Volume 10.3 fL (9.5-12.2); NRBC Per 100 WBC 0 /100 WBCS (0.0-0.0); Non-African American GFR(CKD) 69.3 (60.0-200.0); Platelet Count 156 X 10*3/uL (140-440); Potassium 4.3 mmol/L (3.5-5.5); RBC 5.18 X 10*6/uL (4.40-5.60); RDW 12.8 % (11.5-14.5); WBC 7.24 X 10*3/uL (4.50-10.00)
== END | disposition home or self-care (01) ==
LOC: LABPAT 08:46
PROVIDERS: ATTEND Internal Medicine
DX: Z01.812 Encounter for preprocedural laboratory examination (principal); I35.1 Nonrheumatic aortic (valve) insufficiency
CPT/HCPCS: 36415; 80051; 82565; 84520; 85027

== ENCOUNTER 2022-08-24 06:08 | Day surgery (SDC) | payer MEDICARE ==
[~2022-08-24 06:08] MED LIST changes: +ALPRAZolam 0.25 MG TAB PO PRN; +ALPRAZolam 0.5 MG TAB PO PRN; +ASPIRIN 325 MG TAB PO STA; +ATORVASTATIN 80 MG TAB PO STA; -DEXAMETHASONE SOD PHOSPHATE 4 MG/ML 1 ML VIAL IV ONE; +HEPARIN SODIUM,PORCINE 10,000 UNIT in SODIUM CHLORIDE 0.9% 1,000 ML IRRIGATION PRN; +HEPARIN SODIUM,PORCINE 2,500 UNIT in SODIUM CHLORIDE 0.9% 250 ML IRRIGATION PRN; -LACTATED RINGERS 1,000 ML IV SCH; -LIDOCAINE 1% (10MG/ML) FOR IV START INTRADERMA PRN; +NITROGLYCERIN SL TABS 0.4 MG TAB SUBLINGUAL PRN; -ONDANSETRON 4 MG/2 ML VIAL IVP ONE; -SODIUM CHLORIDE 0.9% 1,000 ML IV SCH; +SODIUM CHLORIDE 0.9% 1,000 ML in EMPTY BAG 1 BAG IV SCH; -ceFAZolin 1 GM in SODIUM CHLORIDE 0.9% 250 ML IRRIGATION PRN
[2022-08-24] MEDS ORDERED: SODIUM CHLORIDE 0.9% 1,000 ML IV ONE (06:41)
[2022-08-24 06:52] VITALS: RESP 16; TEMP 97.9
[2022-08-24] MEDS ORDERED: VERAPAMIL 2.5 MG/ML 2 ML AMP ONE (07:21)
[2022-08-24] MEDS: BENZOCAINE SPRAY 1 CAN TOPICAL ONE ×2 (07:29→07:31)
[2022-08-24] MEDS ORDERED: MIDAZOLAM 2 MG/2 ML VIAL IV ONE ×2 (07:36)
--- NOTE | 2022-08-24 08:03 | P.TEE ---
Description of Procedure(s): Procedure performed: Transesophageal Echocardiogram with color flow doppler, pulsed wave doppler and continuous wave doppler, moderate conscious sedation Moderate conscious sedation: Moderate conscious sedation was supplied with direct supervision of myself using Versed and Fentanyl. Complications: none Indications: Severe aortic stenosis PROCEDURE: After the risks, benefits and alternatives of the above mentioned procedure was explained in detail with the patient, informed consent was obtained. Patient was brought to the lab in a fasting state. Patient was given IV Versed and Fentanyl for sedation. The throat was sprayed with Hurricane to anesthetize the throat. A lubricated Omni probe was then introduced into the esophagus and stomach and multiple views were obtained. 2D echo with color flow doppler, pulsed wave doppler and continuous wave doppler was utilized. Agitated saline bubbles were injected to assess for any intra-atrial shunt. The probe was then removed. Patient tolerated the procedure well. Patient was transferred to the post procedure area in stable and satisfactory condition. FINDINGS: 1. The aortic valve is tricuspid and heavily calcified with severe aortic stenosis. Aortic valve area by planimetry 0.7 cm, maximum velocity 4.1 m/s with a mean gradient 39 mmHg. 2. The mitral valve has mild to moderate mitral annular calcification with moderate mitral regurgitation. There is systolic blunting of the left upper pulmonary vein. 3. Tricuspid valve is normal with mild tricuspid regurgitation. Pacemaker lead seen in the right ventricle and right atrium 4. The interatrial septum is intact. No evidence of PFO. 5. Left atrial appendage is free of clot. 6. Left ventricular ejection fraction is 50-55%.
[2022-08-24] MEDS ORDERED: fentaNYL (PF) 50 MCG/1 ML VIAL IV ONE (08:05)
[2022-08-24] MEDS ORDERED: HEPARIN SODIUM 1,000 UN/ML (10ML VL) ONE (08:07)
[2022-08-24] MEDS ORDERED: LIDOCAINE 1% INJ 10MG/ML (30 ML VIAL-PF) SQ ONE (08:09)
[2022-08-24] MEDS ORDERED: VERAPAMIL SYRINGE (5 MG/10 ML) INTRAARTER ONE (08:11)
[2022-08-24] MEDS ORDERED: IV FLUID CONTINUATION 1,000 ML IV ONE (08:14)
[2022-08-24] MEDS ORDERED: HEPARIN SODIUM 1,000 UN/ML (10ML VL) IV ONE (08:16)
[2022-08-24] MEDS ORDERED: IOPAMIDOL-370 100ML BTL INJ ONE ×2 (08:29→08:35)
--- NOTE | 2022-08-24 08:36 | P.CARDCATH ---
Description of Procedure: PROCEDURES PERFORMED: Bilateral coronary angiography INDICATION: Severe aortic stenosis CONSENT:I have discussed the risks, benefits and alternative therapies for the above-mentioned procedure and for both sedation/analgesia as well as necessary blood product administration, if indicated, as they pertain to this patient. The patient has indicated understanding and acceptance of the risks and procedures discussed. PROCEDURE: After the risks, benefits and alternatives of the above mentioned procedure explained in detail with the patient, informed consent was obtained. Patient was taken to the catheterization lab and prepped and draped in usual fashion. 1% lidocaine was used to anesthetize the right radial artery. A 6-Lenny [facility] sheath was placed in the right radial artery using modified Seldinger technique. Left coronary angiography was performed with a 5-Romanian JL 3.5 catheter and right coronary angiography was performed with a 6-Romanian AL 1.0 catheter in various views. The right radial sheath was removed and a TR band was placed with hemostasis achieved. The patient tolerated the procedure well. Patient was transported back to the post catheterization holding area in stable condition. Conscious Sedation: Patient was monitored under the direct supervision of vision of myself for conscious sedation using Versed and fentanyl for a total duration of 26 minutes HEMODYNAMICS: Aorta: 129/74 SELECTIVE CORONARY ARTERIOGRAPHY: LEFT MAIN: The left main is a large caliber vessel which bifurcates into the LAD and circumflex. There is no significant stenosis. LEFT ANTERIOR DESCENDING CORONARY ARTERY: LAD is a large caliber vessel which wraps around to the apex. There is no significant stenosis. LEFT CIRCUMFLEX CORONARY ARTERY: Left circumflex is a moderate caliber vessel without significant stenosis. RIGHT CORONARY ARTERY: The right coronary artery is a large caliber vessel which gives off a PDA and PLV branch and is the dominant vessel. There is no significant stenosis. FINAL IMPRESSION: 1. Normal coronary arteries as described above. PLAN: 1. Aggressive risk factor modification per most recent ACC/AHA guidelines. 2. Follow-up in the office in 1-2 weeks.
[2022-08-24 12:31] VITALS: BP 123/59; PULSE 57
== END 2022-08-24 12:59 | disposition home or self-care (01) ==
LOC: CATHCVL 06:08
PROVIDERS: ATTEND Internal Medicine
DX: I35.0 Nonrheumatic aortic (valve) stenosis (principal); I10 Essential (primary) hypertension; I44.2 Atrioventricular block, complete; E78.5 Hyperlipidemia, unspecified; F17.210 Nicotine dependence, cigarettes, uncomplicated; Z79.899 Other long term (current) drug therapy
CPT/HCPCS: 93312; 93320; 93325; 93458; C1769 ×2; C1894; J2250; J2001; J1644; Q9967; J3010

== ENCOUNTER → 2022-09-07 | Outpatient (CLI) | payer MEDICARE ==
[2022-09-07 10:19] LABS: ALT 14 U/L (4-49); AST 23 U/L (17-59); African American GFR (CKD) 85 (>60 ml/min/1.73 sqM); Albumin 4.4 g/dL (3.5-5.0); Albumin/Globulin Ratio 1.6; Alkaline Phosphatase 71 U/L (38-126); Anion Gap 8 mmol/L; Blood Urea Nitrogen 13 mg/dL (9-20); Calcium 9.6 mg/dL (8.4-10.2); Carbon Dioxide 31 mmol/L (22-30); Chloride 103 mmol/L (98-107); Globulin 2.8 g/dL; Glucose 96 mg/dL (74-99); Magnesium 2.2 mg/dL (1.6-2.3); Non-African American GFR(CKD) 73 (>60 ml/min/1.73 sqM); Potassium 4.3 mmol/L (3.5-5.1); Sodium 142 mmol/L (137-145); Total Bilirubin 0.7 mg/dL (0.2-1.3); Total Protein 7.2 g/dL (6.3-8.2)
--- NOTE | 2022-09-07 11:32 | CT ---
EXAMINATION TYPE: CT TAVR Planning DATE OF EXAM: 09/07/2022 HISTORY: Pre op planning for TAVR CT DLP: 1858.7 mGycm Automated Exposure Control for Dose Reduction was Utilized. CONTRAST: CT scan of the chest, abdomen and pelvis is performed with IV Contrast, patient injected with 125 mL of Isovue 370. COMPARISON: CT abdomen 08/21/2016. TECHNIQUE: Helical imaging obtained through the chest, abdomen and pelvis during arterial phase justin nicole administration of radiographic contrast intravenously. FINDINGS: See report from [facility] regarding preprocedural planning CHEST: Lower Neck and Thyroid: Subcentimeter left thyroid lobe hypodense nodule. Lungs/pleura: No pneumothorax, pleural effusion, focal consolidation. Right lower lobe calcified gran uloma measuring 1.1 cm. Scattered right upper lobe and right lower lobe subsegmental atelectasis. Central Airway: No significant findings Pulmonary Arteries: No significant findings Heart and Pericardium: Dense aortic valvular and mitral annulus calcifications. No pericardial effusi on. Lymph Nodes: Calcified mediastinal and right hilar lymph nodes likely sequelae of prior granulomatous disease. Mediastinum & Esophagus: No significant findings ABDOMEN/PELVIS: Please note arterial phase of the imaging limits detailed evaluation of the solid abdominal organs. Liver: No significant findings Spleen: No significant findings Kidneys: No significant findings Adrenal Glands: No significant findings Pancreas: No significant findings Gallbladder: Surgically absent. Bowel and Mesentery: Postsurgical changes at the GE junction. Lymph Nodes: No significant findings Urinary Bladder: No significant findings Pelvic Organs: No significant findings Other: Infrarenal abdominal aortic aneurysm measuring up to 3.5 cm. Mild atherosclerotic calcificatio n of the aorta and its branches. The celiac axis, SMA, bilateral renal arteries, and EILEEN are widely p atent. Bovine arch. No significant stenosis at the origin of the great vessels. Mild coronary artery atherosclerotic disease at the origin of the left anterior descending coronary artery and RCA. Other Lines/Tubes/Devices/Hardware: Left chest wall 3-lead cardiac pacemaking device. IMPRESSION: 1. No acute processes. 2. Infrarenal abdominal aortic aneurysm measuring up to 3.5 cm. 3. Sequelae of prior granulomatous disease.
[2022-09-07 11:37] LABS: Partial Thromboplastin Time 27.1 sec (22.0-30.0); Prothrombin Time 10.8 sec (9.0-12.0)
--- NOTE | 2022-09-07 12:02 | US ---
EXAMINATION TYPE: US carotid duplex BILAT DATE OF EXAM: 09/07/2022 COMPARISON: 04/20/2020 CLINICAL HISTORY: R55 SYNCOPE. pre surgery for new vavle, syncope, no h/o stroke TECHNIQUE: Carotid duplex ultrasound examination. Indirect Doppler criteria was utilized. FINDINGS: EXAM MEASUREMENTS: RIGHT: Peak Systolic Velocity (PSV) cm/sec ----- Right CCA: 63.5 ----- Right ICA: 55.1 ----- Right ECA: 64.0 ICA/CCA ratio: 0.9 RIGHT: End Diastole cm/sec ----- Right CCA: 10.2 ----- Right ICA: 16.6 ----- Right ECA: 5.3 LEFT: Peak Systolic Velocity (PSV) cm/sec ----- Left CCA: 63.1 ----- Left ICA: 67.0 ----- Left ECA: 52.7 ICA/CCA ratio: 1.0 LEFT: End Diastole cm/sec ----- Left CCA: 9.2 ----- Left ICA: 18.7 ----- Left ECA: 4.4 VERTEBRALS (direction of flow): Right Vertebral: Antegrade Left Vertebral: Antegrade Rhythm: Normal TECHNICAL SERVICE ENGINEER NOTES: Mild heterogenous plaque with no stenosis seen IMPRESSION: Mild atherosclerotic plaque with significant hemodynamic stenosis. Criteria for Assigning % of Stenosis / Diameter reduction (Estimation based on the indirect measurements of the internal carotid artery velocities (ICA PSV). 1. Normal (no stenosis)=ICA PSV < 125 cm/s: ratio < 2.0: ICA EDV<40 cm/s. 2. Less than 50% stenosis=ICA PSV < 125 cm/s: ratio < 2.0: ICA EDV<40 cm/s. 3. 50 to 69% stenosis=ICA PSV of 125 to 230 cm/s: ration 2.0 ? 4.0: ICA EDV 40-100 cm/s. 4. Greater than 70% stenosis to near occlusion= ICA PSV > 230 cm/s: ratio > 4.0: ICA EDV > 100 cm/s. 5. Near occlusion= ICA PSV velocities may be low or undetectable: variable ratio and ICA EDV. 6. Total occlusion=unable to detect flow.
[2022-09-07 16:32] LABS: Appearance,Urine Clear (Clear); Bilirubin,Urine Negative (Negative); Blood,Urine Negative (Negative); Color,Urine Yellow (Yellow); Ketones,Urine Negative (Negative); Nitrite,Urine Positive (Negative); Specific Gravity,Urine 1.007 (1.001-1.030); Urobilinogen,Urine 0.2 (0.2,1.0)
[2022-09-07 16:39] LABS: Bacteria,Urine 4+ /HPF (None Seen)
[2022-09-07 17:04] LABS: Basophils # (A) 0.05 X 10*3/uL (0.00-0.10); Basophils % (A) 0.6 %; Eosinophils # (A) 0.13 X 10*3/uL (0.04-0.35); Eosinophils % (A) 1.6 %; HCT 48.6 % (39.6-50.0); HGB 16.1 g/dL (13.0-17.0); Immature Grans, Automated 0.4 %; Lymphocytes # (A) 1.77 X 10*3/uL (0.90-5.00); Lymphocytes % (A) 21.8 %; MCH 30.1 pg (27.0-32.0); MCHC 33.1 g/dL (32.0-37.0); Mean Platelet Volume 10.8 fL (9.5-12.2); Monocytes # (A) 0.66 X 10*3/uL (0.20-1.00); Monocytes % (A) 8.1 %; NRBC Per 100 WBC 0 /100 WBCS (0.0-0.0); Neutrophils # (A) 5.49 X 10*3/uL (1.80-7.70); Neutrophils % (A) 67.5 %; Platelet Count 171 X 10*3/uL (140-440); RBC 5.34 X 10*6/uL (4.40-5.60); RDW 12.9 % (11.5-14.5); WBC 8.13 X 10*3/uL (4.50-10.00)
[2022-09-07 18:39] LABS: Hepatitis A Antibody IgM Nonreactive (Nonreactive); Hepatitis B Core IgM Nonreactive (Nonreactive); Hepatitis B Surface Antigen Nonreactive (Nonreactive); Hepatitis C IgG Antibody Nonreactive (Nonreactive)
[2022-09-07 18:42] LABS: Chol/HDL Ratio 3.21 Ratio; LDL Cholesterol,Calculated 67.5 mg/dL (0.0-131.0)
== END | disposition home or self-care (01) ==
LOC: LABWHC1 10:21
PROVIDERS: ATTEND Thoracic Surgery (Cardiothoracic Vascular Surgery)
DX: Z01.812 Encounter for preprocedural laboratory examination (principal); E87.8 Other disorders of electrolyte and fluid balance, not elsewhere classified; I35.0 Nonrheumatic aortic (valve) stenosis; E11.9 Type 2 diabetes mellitus without complications; E07.9 Disorder of thyroid, unspecified; Z79.01 Long term (current) use of anticoagulants; E78.5 Hyperlipidemia, unspecified; N28.9 Disorder of kidney and ureter, unspecified; Z79.899 Other long term (current) drug therapy; R35.0 Frequency of micturition; R58 Hemorrhage, not elsewhere classified
CPT/HCPCS: 83880; 80061; 80053; 80074; 84443; 83735; 85025; 85610; 85730; 81001; 87086; 83036; 93880; 71275; 74174; 93005; 36415; Q9967

== ENCOUNTER → 2022-10-02 | Outpatient (CLI) | payer MEDICARE ==
[2022-10-02 10:47] LABS: Partial Thromboplastin Time 24.9 sec (22.0-30.0); Prothrombin Time 10.6 sec (9.0-12.0)
[2022-10-02 15:01] LABS: HCT 49.3 % (39.6-50.0); HGB 15.9 g/dL (13.0-17.0); MCH 29.2 pg (27.0-32.0); MCHC 32.3 g/dL (32.0-37.0); MCV 90.5 fL (80.0-97.0); Mean Platelet Volume 10.5 fL (9.5-12.2); NRBC Per 100 WBC 0 /100 WBCS (0.0-0.0); Platelet Count 163 X 10*3/uL (140-440); RBC 5.45 X 10*6/uL (4.40-5.60); RDW 12.4 % (11.5-14.5); WBC 7.59 X 10*3/uL (4.50-10.00)
[2022-10-02 15:31] LABS: Albumin 4.4 g/dL (3.8-4.9); Albumin/Globulin Ratio 1.94 (1.60-3.17); Anion Gap 10.6 mmol/L (10.00-18.00); BUN/Creat Ratio 12.5 Ratio (12.00-20.00); Calcium 10.1 mg/dL (8.7-10.3); Carbon Dioxide 28.2 mmol/L (20.0-27.5); Globulin 2.3 g/dL (1.6-3.3); Non-African American GFR(CKD) 64.7 (60.0-200.0); Potassium 4.7 mmol/L (3.5-5.5); Total Bilirubin 0.5 mg/dL (0.30-1.20); Total Protein 6.7 g/dL (6.2-8.2)
== END | disposition home or self-care (01) ==
LOC: LABPAT 09:48
PROVIDERS: ATTEND Thoracic Surgery (Cardiothoracic Vascular Surgery)
DX: I35.0 Nonrheumatic aortic (valve) stenosis (principal); N18.4 Chronic kidney disease, stage 4 (severe); R06.02 Shortness of breath
CPT/HCPCS: 80053; 85027; 85610; 85730

== ENCOUNTER 2022-10-04 05:47 | Inpatient (IN) | payer MEDICARE ==
[2022-10-04] MEDS ORDERED: ASPIRIN 325 MG TAB PO ONE (06:00)
[2022-10-04] MEDS ORDERED: CLEVIDIPINE BUTYRATE 25 MG in EMPTY BAG 1 BAG IV PRN (06:00)
[2022-10-04] MEDS ORDERED: NITROGLYCERIN-D5W PMX 25 MG/250 ML BTL IV PRN (06:00)
[2022-10-04] MEDS ORDERED: ELECTROLYTE-A SOLUTION 1,000 ML with POTASSIUM CHLORIDE 100 MEQ, MAGNESIUM SULFATE 16 M... IV PRN ×5 (06:00)
[2022-10-04] MEDS ORDERED: INSULIN REGULAR 100 UNIT in SODIUM CHLORIDE 0.9% 100 ML IV PRN (06:00)
[2022-10-04] MEDS ORDERED: TRANEXAMIC ACID 2,000 MG in SODIUM CHLORIDE 0.9% 80 ML IV PRN (06:00)
[2022-10-04] MEDS ORDERED: METOPROLOL TARTRATE 25 MG TAB PO ONE (06:00)
[2022-10-04] MEDS ORDERED: SODIUM CHLORIDE 0.9% 500 ML 500 ML INTRAARTER PRN (06:00)
[2022-10-04] MEDS ORDERED: CLOPIDOGREL 75 MG TAB PO ONE (06:00)
[2022-10-04] MEDS ORDERED: ATORVASTATIN 10 MG TAB PO ONE (06:00)
[2022-10-04] MEDS ORDERED: LACTATED RINGERS 1,000 ML IV SCH ×2 (06:00→10:36)
[2022-10-04] MEDS ORDERED: PROTAMINE SULFATE 250 MG in EMPTY BAG 1 BAG IV PRN (06:00)
[2022-10-04 06:34] LABS: Glucose,Whole Blood 79 mg/dL (70-110)
[2022-10-04] MEDS ORDERED: SODIUM CHLORIDE 0.9% 1,000 ML IV ONE ×2 (06:46→08:00)
[2022-10-04] MEDS ORDERED: PHENYLEPHRINE-0.9% NACL SYG 1,000 MCG/10 ML SYRINGE ONE (07:51)
[2022-10-04] MEDS ORDERED: SODIUM CHLORIDE 0.9% 100 ML BAG ONE (07:51)
[2022-10-04] MEDS ORDERED: NITROGLYCERIN-D5W PMX 50 MG/250 ML BOTTLE IV ONE (07:51)
[2022-10-04] MEDS ORDERED: HEPARIN SODIUM,PORCINE 10,000 UNIT/ML 1 ML VIAL ONE (07:51)
[2022-10-04] MEDS ORDERED: PROTAMINE SULFATE 10 MG/ML 5 ML VIAL IV ONE (07:51)
[2022-10-04] MEDS ORDERED: SUCCINYLCHOLINE CHLORIDE 200 MG/10 ML VIAL IV ONE (07:51)
[2022-10-04] MEDS ORDERED: MIDAZOLAM 2 MG/2 ML VIAL ONE (07:51)
[2022-10-04] MEDS ORDERED: ePHEDrine 50 MG/ML 1 ML VIAL ONE (07:51)
[2022-10-04] MEDS ORDERED: fentaNYL (PF) 50 MCG/ML 2 ML AMP ONE (07:51)
[2022-10-04] MEDS ORDERED: NEOSTIGMINE 1 MG/ML 10 ML VIAL ONE (07:51)
[2022-10-04] MEDS ORDERED: GLYCOPYRROLATE 0.2 MG/ML 2 ML VIAL ONE (07:51)
[2022-10-04] MEDS ORDERED: LIDOCAINE 2% INJ 20 MG/ML (2 ML VIAL) ONE (07:51)
[2022-10-04] MEDS ORDERED: PROPOFOL 10 MG/ML 20 ML VIAL IV ONE (07:51)
[2022-10-04] MEDS ORDERED: ROCURONIUM 10 MG/ML (5 ML VIAL) IV ONE (07:51)
[2022-10-04] MEDS ORDERED: ceFAZolin 1,000 MG VIAL ONE (07:51)
[2022-10-04] MEDS ORDERED: METOPROLOL TARTRATE 5 MG/5 ML VIAL IVP ONE (07:51)
[2022-10-04] MEDS ORDERED: ESMOLOL 100 MG/10 ML VIAL ONE (07:51)
[2022-10-04] MEDS ORDERED: IOPAMIDOL-370 100ML BTL INJ ONE (09:46)
[2022-10-04] MEDS ORDERED: IOPAMIDOL-300 50ML BTL INJ ONE (10:03)
[2022-10-04 10:28] LABS: Glucose,Whole Blood 67 mg/dL (70-110)
--- NOTE | 2022-10-04 10:29 | P.PCN ---
Date of Procedure: 10/04/22 Operative Findings: TRANSCATHETER AORITC VALVE REPLACEMENT OPERATIVE REPORT PROCEDURE PERFORMED: 1. Percutaneous Aortic Valve Implantation using a 34 mm Core-Valve Evolut-Pro Plus. 2. Transesophageal echocardiography (performed by anesthesia) 3. Ultrasound guided access and repair of right femoral artery access site by Perclose closure device. 4. Placement of temporary pacemaker wire. 5. Aortic root angiography INDICATIONS: 1. An 87 year-old with a history of severe symptomatic aortic valve stenosis. 2. He was experiencing symptoms of shortness of breath consistent with NYHA class III PERFORMING PHYSICIANS: 1. Anthony Dotson MD Interventional Cardiology. 2. Patel Lala MD, Cardiothoracic Surgeon. 3. Clemencia Lara MD Proctoring Interventional cardiology SEDATION: General anesthesia provided by anesthesia, see separate note APPROACH: Right common femoral artery via percutaneous approach PROCEDURE DESCRIPTION: The patient was discussed at valve clinic with multidisciplinary approach with cardiothoracic surgeon as well as slots manager and thought better treated with TAVR. Risks, benefits, and alternatives of the procedure had been explained to the patient who understood the risks and agreed to proceed. After consents were obtained, patient was brought to the transcatheter aortic valve implantation room in the cardiac animal laboratory helper and general anesthesia was provided by the rafiq nesthesiologist (see separate report). Once full body sterile prep was performed, the left common femoral vein was cannulated using micropuncture technique under ultrasound guidance, the micropuncture wire passed easily then I placed a 6-[place] sheath at the left common femoral vein. Subsequently and under fluoroscopy guidance the pacer wire with a balloon-tip was advanced all the way to the RV apex. The pacer was secured subsequently. Pacing threshholds were checked and deemed appropriate. Next the left common femoral artery waw accessed using a modified Seldinger technique, ultrasound guidance and micropuncture technique. A 6 [place] Rabi sheath was placed in the left common femoral artery. Next, a 6-[place] pigtail catheter was advanced into the aorta and positioned in the aortic root, aortic root angiography was performed to determine optimal deployment angle. The right common femoral artery was accessed using modified Seldinger technique, micropuncture technique and under direct ultrasound guidance. Femoral angiogram was done showing access in the common femoral artery and a 6Fr sheath was placed. Next preclose technique was performed using a two Perclose. Next a 0.035 Lunderquist wire was placed in the Aorta via a pigtail catheter. Over that the arteriotomy was dilated using 10- [place] dilator and subsequently 18 Fr [place] sheath was placed. Next a 6F- AL1 catheter was advanced over a wire to the aortic root. A straight wire was advanced through the catheter and used to cross the severely stenotic valve. We attempted a crossing the valve using AL-1 but that was unsuccessful then we attempted crossing the valve using an a.l. to undergo also that was unsuccessful but finally we were able to cross about using JR4 catheter with 035 Glidewire. The JR4 was then exchanged for a 6Fr pigtail catheter and pressure measurements were obtained. The 0.035 Lunderquist wire was then positioned in the apex. We decided to do predilatation of the valve which was performed using 24 mm balloon. Next a 34 mm Corevalve Evolut-Pro Plus was advanced. The valve was then positioned across the aortic valve and confirmed with aortic root angiography. [The valve was initially partially deployed however needed repositioning and therefore was recaptured.] The valve was then deployed in proper position using slow deployment and with rapid pacing in conjuncture with aortic root angiography and CHACHA. The delivery system was withdrawn back into the arch and an aortic root injection in conjunction with CHACHA demonstrated a satisfactory result. There was trivial para valvular leak. There was no evidence of any other significant abnormalities. The preclose Perclose was then deployed in the right common femoral artery and hemostasis was achieved. We achieved good hemostasis confirmed using an injection through a rim catheter from the left common femoral artery. Femoral angiogram was performed that showed no contrast leak. The left common femoral angiogram demonstrated an arteriotomy in the common femoral artery and this was repaired using a 6F angioseal device with complete hemostasis. The 6-[place] venous sheath was pulled out and we achieved hemostasis using the Vascade device. The procedure was completed without any complication COMPLICATIONS: None CONCLUSION: 1. Implantaion of 34 Core-Valve Evolut-Pro Plus transcatheter aortic valve via right common femoral approach under CHACHA and fluoro guidance with mild erickson- valvular aortic regurgitation. 2. Placement of temporary pacemaker wire 3. Aortic Root Aortogram. RECOMMENDATIONS: The patient will be monitored in the ICU for hemodynamic and electrical stability. Patient will be on aspirin and Plavix.
[2022-10-04] MEDS ORDERED: Magnesium Replacement Protocol 1 EACH MISC MISCELLANE PRN (10:36)
[2022-10-04] MEDS ORDERED: Potassium Replacement Protocol 1 EACH MISC MISCELLANE PRN (10:36)
[2022-10-04] MEDS ORDERED: METOCLOPRAMIDE 5 MG/ML 2 ML VIAL IVP PRN (10:36)
[2022-10-04] MEDS ORDERED: IPRATROPIUM-ALBUTEROL 3 ML NEB INHALATION PRN (10:36)
[2022-10-04] MEDS ORDERED: ONDANSETRON 4 MG/2 ML VIAL IVP PRN (10:36)
[2022-10-04] MEDS ORDERED: Phosphorus Replacement Protoco 1 EACH MISC MISCELLANE PRN (10:36)
[2022-10-04] MEDS ORDERED: ACETAMINOPHEN TAB 500 MG TAB PO PRN (10:36)
[2022-10-04] MEDS ORDERED: MECLIZINE 25 MG TAB PO PRN (10:36)
[2022-10-04] MEDS ORDERED: ALBUTEROL HFA INHALER INHALATION PRN (10:36)
[2022-10-04] MEDS ORDERED: NON FORMULARY DRUG (Omeprazole 40 MG Capsule.Dr) PO PRN (10:36)
[2022-10-04] MEDS ORDERED: CALCIUM GLUCONATE IN NACL 2 GM in SALINE 1 100ML.BAG IVPB PRN (10:36)
--- NOTE | 2022-10-04 10:42 | IR ---
EXAMINATION TYPE: IR stent intravas non coronary DATE OF EXAM: 10/04/2022 COMPARISON: NONE HISTORY: Fluoroscopy time. Fluoroscopy was provided to the referring clinician.
[2022-10-04 11:08] LABS: Basophils # (A) 0.1 k/uL (0-0.2); Basophils % (A) 1 %; Eosinophils # (A) 0.1 k/uL (0-0.7); Eosinophils % (A) 2 %; HCT 38.2 % (39.0-53.0); HGB 13.5 gm/dL (13.0-17.5); Lymphocytes # (A) 1.1 k/uL (1.0-4.8); Lymphocytes % (A) 20 %; MCH 30.7 pg (25.0-35.0); MCHC 35.3 g/dL (31.0-37.0); Monocytes # (A) 0.3 k/uL (0-1.0); Monocytes % (A) 5 %; Neutrophils # (A) 3.8 k/uL (1.3-7.7); Neutrophils % (A) 70 %; Platelet Count 128 k/uL (150-450); RBC 4.39 m/uL (4.30-5.90); RDW 12.3 % (11.5-15.5); WBC 5.4 k/uL (3.8-10.6)
[2022-10-04 11:11] LABS: Ionized Calcium 5.1 mg/dL (4.5-5.3)
[2022-10-04 11:23] LABS: ALT 14 U/L (4-49); AST 22 U/L (17-59); African American GFR (CKD) >90 (>60 ml/min/1.73 sqM); Albumin 2.9 g/dL (3.5-5.0); Alkaline Phosphatase 58 U/L (38-126); Anion Gap 5 mmol/L; Blood Urea Nitrogen 12 mg/dL (9-20); Calcium 8.3 mg/dL (8.4-10.2); Carbon Dioxide 23 mmol/L (22-30); Chloride 108 mmol/L (98-107); Glucose 144 mg/dL (74-99); Magnesium 1.8 mg/dL (1.6-2.3); Non-African American GFR(CKD) 83 (>60 ml/min/1.73 sqM); Potassium 3.6 mmol/L (3.5-5.1); Sodium 136 mmol/L (137-145); Total Bilirubin 0.5 mg/dL (0.2-1.3); Total Protein 5.1 g/dL (6.3-8.2)
[2022-10-04] MEDS ORDERED: POTASSIUM CHLORIDE ER 20 MEQ TAB.ER PO STA (11:35)
--- NOTE | 2022-10-04 11:45 | P.OP ---
Date of Procedure: 10/04/22 Preoperative Diagnosis: Tricuspid calcific aortic valve stenosis Postoperative Diagnosis: Same Procedure(s) Performed: Transcatheter aortic valve replacement via right percutaneous transfemoral approach with 34 mm Medtronic FX valve Implants: 34 mm Medtronic FX valve Anesthesia: LORNA Surgeon: Patel Sinha Livestock Counter #1: Anthony Dotson (chicken and fish cleaner) Estimated Blood Loss (ml): 20 IV fluids (ml): 1,000 Pathology: none sent Condition: stable Disposition: ICU Indications for Procedure: 87-year-old male with low gradient severe aortic valve stenosis which is highly symptomatic and progressive. He was seen in the high risk valve clinic and felt to be appropriate for transcatheter aortic valve replacement and a high risk for surgical aortic valve replacement. Elective transcatheter valve was scheduled. Operative Findings: CHACHA demonstrated very heavily calcified tricuspid aortic valve with minimal opening. The valve was very difficult to cross. Once we crossed and obtained hemodynamics, mean gradient was 27. This was paradoxical low flow lobe gradient aortic stenosis. Once the valve was replaced, patient became acutely hypertensive due to relief of the very tight gradient across the aortic valve with hyperdynamic left ventricular function. Good closure of the right femoral arterial cannulation site was obtained and confirmed with angiography. Description of Procedure: Patient was brought to the cardiac catheterization laboratory and placed supine on table. General anesthesia was induced. CHACHA probe was placed. The anterior torso and bilateral groins were sterilely prepped and draped. Left femoral venous access was obtained by Dr. Mena under ultrasound guidance. 7-[place]aiwanese sheath was placed. Left-sided arterial axis was then obtained by Dr. Dotson again under ultrasound guidance. Second for a 7-[place]aiwanese sheath was placed this time and the femoral artery. Pigtail catheter was advanced into the noncoronary si nus of Valsalva. Temporary pacing wire was advanced through the femoral venous into the right ventricle and good thresholds were obtained. Right-sided femoral arterial axis was obtained under ultrasound guidance of a [place]ese sheath was placed. Good position above the femoral bifurcation was confirmed with fluoroscopy. 2 Perclose devices were applied and the right femoral artery and an 8-[place]aiwanese sheath was placed. A stiff wire was advanced into the descending thoracic aorta and the 8-Taiwanese sheath exchanged for a 14-[place]aiwanese sheath with no difficulty. Patient was systemically heparinized a CTs were maintained greater than 250. The valve was now cross from the right femoral pigtail catheter placed in the apex of the ventricle. Very difficult across his aortic valve. Guidewire was exchanged for a pigtail catheter and transvalvular gradients were measured. Lunderquist wire was placed in the apex of the left ventricle. 24- [place]ese balloon was advanced over the wire across the valve and valvuloplasty of the aortic valve was performed under rapid ventricular pacing. Following this a 34-[place]ese Medtronic fracture transcatheter valve delivery system was brought up on the field and checked under fluoroscopy. Lunderquist wire was maintained in the apex of the ventricle and the 14-[place]aiwanese sheath was exchanged for the valve delivery system. This was advanced under fluoroscopic guidance through the ileal femoral system of the aorta and around the aortic arch. Was then passed across the aortic valve and the valve was deployed under rapid ventricular pacing. Appointment levels were 3 on the right and 4 on the left. CHACHA demonstrated only trivial aortic insufficiency. Valve delivery system was removed and the 14-Taiwanese sheath replaced. Lunderquist wire was exchanged for a a wire. Temporary pacer and pigtail catheter were pulled out of the left groin. Heparin was reversed with protamine. A 14-Taiwanese sheath was removed and the 2 Perclose devices deployed successfully initially over the J-wire. Once we confirmed no evidence of bleeding from the groin the J-wire was removed and the 2 Perclose devices were fully deployed. Completion angiography demonstrated no narrowing and no leak from the right femoral artery and then the left femoral arterial and venous sheaths were removed and direct pressure applied. Patient remained hemodynamically stable throughout. He was quite hypertensive after deployment of the valve and good blood pressure control was initiated. Patient was extubated and transferred to the ICU in stable condition.
[2022-10-04] MEDS: MAGNESIUM SULFATE-D5W PMX 1 GM in DEXTROSE/WATER 1 100ML.BAG IVPB SCH ×2 (11:46→22:21)
[2022-10-04] MEDS: CLEVIDIPINE BUTYRATE 25 MG in EMPTY BAG 1 BAG IV SCH (11:47)
[2022-10-04 11:50] LABS: INR 1.1 (<1.2); Partial Thromboplastin Time 28.5 sec (22.0-30.0); Prothrombin Time 11.6 sec (9.0-12.0)
[2022-10-04 12:01] LABS: Glucose,Whole Blood 92 mg/dL (70-110)
--- NOTE | 2022-10-04 13:48 | P.ANPRN ---
Procedure Note - Anesthesia - CHACHA Intraop Pre Bypass CHACHA Intraop - Anesthesia Indication: TAVR assessment Date of Procedure: 10/04/22 Pre-operative Diagnosis: Severe aortic stenosis Post-operative Diagnosis: Severe aortic stenosis Left Ventricle: EF 45%, LVH Regional Wall Motion Abnormalities: None Left Ventricle Hypertrophy: Yes R. Ventricle Function: Normal Anatomy: Trileaflet Aortic Stenosis: Severe Aortic Regurgitation: Mild Other Findings: Peak PG 56, mean PG 45 Mitral Valve: mitral annular calcification Mitral Stenosis: None Mitral Regurgitation: Mild Tricuspid Stenosis: None Tricuspid Regurgitation: Mild Pulmonic Stenosis: None Pulmonic Regurgitation: None R. Atrial Dilation: No R. Atrial PFO: No L. Atrial Dilation: No Aortic Dissection: No Aortic Calcification: Mild Plural Effusion: None - CHACHA Intraop Post Bypass CHACHA Intraop Post Bypass Procedure Performed: TAVR Left Ventricle: 65% Ejection Fraction: Normal Regional Wall Motion Abnormalities: None R. Ventricle Function: Normal Aortic Valve: Prosthetic valve in appropriate position with <10% paravalvular leak. Mean PG 15 Mitral Valve: Unchanged Tricuspid: Unchanged Pulmonic: Unchanged Aortic Dissection: No
--- NOTE | 2022-10-04 14:24 | XR ---
EXAMINATION TYPE: XR chest 1V portable DATE OF EXAM: 10/04/2022 COMPARISON: 05/26/2021 HISTORY: Postop cardiac surgery TECHNIQUE: Single frontal view of the chest is obtained. FINDINGS: Calcified granuloma right lower lobe with bilateral lower lobe subsegmental consolidation small effusion. Ultimately cardiac device seen with bibasilar subsegmental consolidation. Underlying COPD and chronic interstitial lung disease suspected. IMPRESSION: 1. Correlate for chronic interstitial lung disease and COPD. There is bibasilar subsegmental consolid ation most typical of atelectasis. Tiny pleural effusions not excluded.
[2022-10-04] MEDS ORDERED: POTASSIUM CHLORIDE 10 MEQ in WATER FOR INJECTION 1 100ML.BAG IVPB ONE (16:00)
[2022-10-04] MEDS ORDERED: AMIODARONE 360 MG in DEXTROSE 5% IN WATER 200 ML IV ONE ×2 (16:15)
[2022-10-04] MEDS: IPRATROPIUM-ALBUTEROL 3 ML NEB INHALATION SCH ×2 (16:55→21:24)
--- NOTE | 2022-10-04 17:34 | P.CNPUL ---
History of Present Illness Consult date: 10/04/22 Chief complaint: TAVR History of present illness: This is a 87-year-old male patient, coming to the intensive care unit post TAVR procedure. The patient had severe symptomatic aortic valve stenosis. The patient also exertional dyspnea with York heart class III. The patient had a preop cardiac catheterization that showed normal coronaries. She is known to have history of atrial fibrillation, hypertension hyperlipidemia as comorbid conditions. Cardiac rhythm is sinus at this point in time and the patient is hemodynamically stable. Surgical one-sided in the femoral area dry clean and intact. The patient was receiving Eliquis on outpatient basis regarding history of atrial fibrillation. She also has a pacemaker in place. The patient has a history of complete heart block and the patient has a dual-chamber pacemaker and based on the most recent EP evaluation, the patient is having 100% pacing. The patient has biventricular pacing. The chest x-ray that was done postprocedure shows no acute abnormalities. There is cardiomegaly. Some atelectatic changes in the right upper lobe. Another no tenderness right lower lobe was also noted. No airspace disease. No consolidation. No pneumothorax. The patient is hemodynamically stable on room air oxygen. Review of Systems All systems: negative (History of exertional dyspnea secondary to severe aortic stenosis) Past Medical History Past Medical History: Atrial Fibrillation, Asthma, Cancer, Eye Disorder, GERD/Reflux, Hearing Disorder / Deafness, Hyperlipidemia, Hypertension, Prostate Disorder, Skin Disorder, Vascular Disorder Additional Past Medical History / Comment(s): Aortic valve stenosis,See Dr Bettencourt's H&P, Bryson's Esophagus,Self caths r/t prostate surg. since 2013, radiation 30 tx's on upper lip for tx of melanoma-last tx 04-21-19, Meniere's Disease, abd. aortic aneurysm-vasc. monitoring History of Any Multi-Drug Resistant Organisms: None Reported Past Surgical History: Appendectomy, Cardiac Ablation, Cholecystectomy, Heart Catheterization, Hernia Repair, Pacemaker, Prostate Surgery Additional Past Surgical History / Comment(s): "reemed the prostate-could not urinate on own post procedure", EGDs,Adhesions removed,maximo cataracts,laparoscopic kinsey fundoplication, left leg vein stripping Past Anesthesia/Blood Transfusion Reactions: No Reported Reaction Type of Cardiac Device: Permanent Pacemaker Device Placement Date:: 2020 Medtronic Smoking Status: Former smoker - Past Family History Mother Family Medical History: No Reported History Additional Family Medical History / Comment(s): Not pertinent for current admission Brother(s) Family Medical History: Cancer Father Additional Family Medical History / Comment(s): History of heart problems Medications and Allergies Home Medications Medication Instructions Recorded Confirmed Type Atorvastatin [Lipitor] 10 mg PO HS 04/22/19 09/28/22 History Cholecalciferol (Vitamin D3) 2,000 unit PO BID 04/22/19 09/28/22 History [Vitamin D3] Meclizine [Antivert] 25 mg PO TID PRN 05/06/20 10/04/22 History Apixaban [Eliquis] 5 mg PO BID 05/13/21 10/04/22 History Omeprazole [PriLOSEC] 20 mg PO BID PRN 05/13/21 10/04/22 History Albuterol Sulfate [Proventil Hfa] 2 puff INHALATION DAILY PRN 05/20/21 09/28/22 History Metoprolol Tartrate [Lopressor] 12.5 mg PO DAILY 05/20/21 09/28/22 History Aspirin 81 mg PO DAILY 09/28/22 10/04/22 History Allergies Allergy/AdvReac Type Severity Reaction Status Date / Time No Known Allergies Allergy Verified 10/04/22 06:13 Physical Exam Vitals: Vital Signs Temp Pulse Pulse Pulse Resp BP BP 10/04/22 15:00 56 L 6 L 112/54 10/04/22 14:00 19 112/54 10/04/22 13:00 52 L 10 L 112/54 10/04/22 12:00 98.5 F 53 L 50 L 12 11254 10/04/22 11:00 55 L 8 L 112/54 10/04/22 06:44 98.1 F 55 L 18 145/84 BP Pulse Ox 10/04/22 15:00 98 10/04/22 14:00 95 10/04/22 13:00 99 10/04/22 12:00 98 10/04/22 11:00 99 10/04/22 06:44 148/75 100 Intake and Output 10/04/22 10/04/22 10/04/22 06:59 14:59 22:59 Intake Total 300 600 200 Output Total 1000 Balance 300 600 -800 Intake: IV 300 600 Intake, IV Titration 200 Amount Lactated Ringers 1,000 ml 200 @ 50 mls/hr IV .Q20H [facility] Rx#:[id number] Output: Urine 1000 Other: Voiding Method Self-Catheterization Weight 91.4 kg ABP, PAP, CO, CI - Last 8 Hours Arterial Blood Pressure 136/52 Arterial Blood Pressure 160/64 Arterial Blood Pressure 150/59 Arterial Blood Pressure 149/54 Arterial Blood Pressure 133/47 Arterial Blood Pressure 130/54 The patient appeared well nourished and normally developed. Vital signs as documented. Head exam is unremarkable. No scleral icterus or corneal arcus noted. Neck is without jugular venous distension, thyromegaly, or carotid bruits. Carotid upstrokes are brisk bilaterally. Lungs are clear to auscultation and percussion. Cardiac exam reveals the PMI to be normally sized and situated. Rhythm is regular. First and second heart sounds normal. No murmurs, rubs or gallops. Abdominal exam reveals normal bowel sounds, no masses, no organomegaly and no aortic enlargement. Extremities are nonedematous and both femoral and pedal pulses are normal. Examination of the skin revealed no evidence of sign ificant rashes, suspicious appearing nevi or other concerning lesions.Neurologically, the patient is awake and alert and the patient does not have any focal neurological deficit. Cranial nerves are essentially intact. The patient has a FemoStop in his right groin area. Adequate pulses in lower ox imetry is bilaterally. Results - Laboratory Findings CBC and BMP: 10/04/22 11:02 10/04/22 11:02 PT/INR, D-dimer PT 11.6 sec (9.0-12.0) 10/04/22 11:02 INR 1.1 (<1.2) 10/04/22 11:02 Abnormal lab findings: Abnormal Labs 10/02/22 10/04/22 10/04/22 09:59 10:27 11:02 Hct 38.2 L Plt Count 128 L Sodium Chloride Glucose POC Glucose (mg/dL) 67 L Calcium Total Protein Albumin Crossmatch See Detail 10/04/22 11:02 Hct Plt Count Sodium 136 L Chloride 108 H Glucose 144 H POC Glucose (mg/dL) Calcium 8.3 L Total Protein 5.1 L Albumin 2.9 L Crossmatch - Diagnostic Findings Chest x-ray: image reviewed Assessment and Plan Plan: Aortic valve stenosis post TAVR and the patient is postop day #0 History of complete heart block and the patient has a permanent biventricular p acemaker in place History of atrial fibrillation maintained on long-term and cognition without liquids on outpatient basis Hyperlipidemia History of Bryson's esophagus History of prostate cancer treated by radiation therapy back in 2013 History of melanoma History of abdominal wart milligrams and Mnire's disease Impaired hearing Acid reflux Hypertension Bronchial asthma Plan Monitor the patient intensive care unit Chest x-ray was noted Echocardiogram in a.m. Heparin subcu portably prophylaxis Continue aspirin Cleviprex for blood pressure control if needed Will follow
[2022-10-04] MEDS: CHOLECALCIFEROL 25 MCG (1000 IU) TABLET PO SCH (20:51)
[2022-10-04] MEDS ORDERED: ATORVASTATIN 10 MG TAB PO SCH (21:00)
[2022-10-04] MEDS ORDERED: AMIODARONE 450 MG in DEXTROSE 5% IN WATER 250 ML IV SCH ×2 (22:15)
[2022-10-04] MEDS: HEPARIN SODIUM,PORCINE/PF 5,000 UNIT/0.5 ML SYRINGE SQ SCH (23:56)
[2022-10-05 03:29] LABS: Basophils % (A) 1 %; Eosinophils # (A) 0.1 k/uL (0-0.7); Eosinophils % (A) 1 %; HCT 39.1 % (39.0-53.0); HGB 13.8 gm/dL (13.0-17.5); Lymphocytes # (A) 1.1 k/uL (1.0-4.8); Lymphocytes % (A) 15 %; MCH 30.5 pg (25.0-35.0); MCHC 35.2 g/dL (31.0-37.0); MCV 86.7 fL (80.0-100.0); Mean Platelet Volume 8.2; Monocytes # (A) 0.5 k/uL (0-1.0); Monocytes % (A) 7 %; Neutrophils # (A) 5.7 k/uL (1.3-7.7); Neutrophils % (A) 75 %; Platelet Count 119 k/uL (150-450); RBC 4.51 m/uL (4.30-5.90); RDW 12.7 % (11.5-15.5); WBC 7.7 k/uL (3.8-10.6)
[2022-10-05 03:33] LABS: Ionized Calcium 5.2 mg/dL (4.5-5.3)
[2022-10-05 03:44] LABS: ALT 13 U/L (4-49); AST 23 U/L (17-59); African American GFR (CKD) >90 (>60 ml/min/1.73 sqM); Albumin 3.2 g/dL (3.5-5.0); Alkaline Phosphatase 74 U/L (38-126); Anion Gap 4 mmol/L; Blood Urea Nitrogen 11 mg/dL (9-20); Calcium 8.7 mg/dL (8.4-10.2); Carbon Dioxide 26 mmol/L (22-30); Chloride 107 mmol/L (98-107); Glucose 98 mg/dL (74-99); Magnesium 2.2 mg/dL (1.6-2.3); Non-African American GFR(CKD) 83 (>60 ml/min/1.73 sqM); Potassium 4.1 mmol/L (3.5-5.1); Sodium 137 mmol/L (137-145); Total Bilirubin 0.7 mg/dL (0.2-1.3); Total Protein 5.6 g/dL (6.3-8.2)
--- NOTE | 2022-10-05 06:24 | P.PN ---
Subjective Progress Note Date: 10/05/22 This is a 87-year-old male patient, coming to the intensive care unit post TAVR procedure. The patient had severe symptomatic aortic valve stenosis. The patient also exertional dyspnea with York heart class III. The patient had a preop cardiac catheterization that showed normal coronaries. She is known to have history of atrial fibrillation, hypertension hyperlipidemia as comorbid conditions. Cardiac rhythm is sinus at this point in time and the patient is hemodynamically stable. Surgical one-sided in the femoral area dry clean and intact. The patient was receiving Eliquis on outpatient basis regarding history of atrial fibrillation. She also has a pacemaker in place. The patient has a h istory of complete heart block and the patient has a dual-chamber pacemaker and based on the most recent EP evaluation, the patient is having 100% pacing. The patient has biventricular pacing. The chest x-ray that was done postprocedure shows no acute abnormalities. There is cardiomegaly. Some atelectatic changes in the right upper lobe. Another no tenderness right lower lobe was also noted. No airspace disease. No consolidation. No pneumothorax. The patient is hemodynamically stable on room air oxygen. 10/05/2022, the patient remains on room air oxygen. No issues overnight. Hemodynamically stable. Cardiac rhythm is still paced and the patient has a permanent dual-chamber biventricular pacer in place. Blood work is essentially within normal limits. The vesicles at 7.7 with a hemoglobin 15.9 and a platelet count of 119 and his sodium is at 137 and a BUN is at 11 with a creatinine of 0.76. The patient has no issues with pain. The surgical one-sided over the groin area is dry clean and intact and the patient is adequate pulses in lower extremities bilaterally. No issues with hypertension. No issues with chest pain. No issues with shortness of breath. No issues with mental status change in his moldable 4 extremities without any limitation. Objective - Vital Signs Vital signs: Vital Signs Temp 98.8 F 10/05/22 04:00 Pulse 63 10/05/22 05:00 Resp 6 L 10/05/22 05:00 BP 112/42 10/05/22 05:00 Pulse Ox 96 10/05/22 05:00 FiO2 Intake & Output 10/04/22 10/04/22 10/05/22 06:59 18:59 06:59 Intake Total 300 800 90 Output Total 1000 2030 Balance 300 -200 -1940 Weight 91.4 kg 95.8 kg Intake: IV 300 600 90 Lactated Ringers 1,000 ml 40 @ 10 mls/hr IV .Q24H [facility] Rx#:[id number] ceFAZolin 2 gm In Sodium 50 Chloride 0.9% 50 ml @ 100 mls/hr IVPB ONCE ONE Rx# :[id number] Intake, IV Titration 200 Amount Lactated Ringers 1,000 ml 200 @ 50 mls/hr IV .Q20H [facility] Rx#:[id number] Output: Urine 1000 2030 Other: Voiding Method Self-Catheterization Self-Catheterization # Voids 1 ABP, PAP, CO, CI - Last Documented Arterial Blood Pressure 112/38 - Exam The patient appeared well nourished and normally developed. Vital signs as documented. Head exam is unremarkable. No scleral icterus or corneal arcus note d. Neck is without jugular venous distension, thyromegaly, or carotid bruits. Carotid upstrokes are brisk bilaterally. Lungs are clear to auscultation and percussion. Cardiac exam reveals the PMI to be normally sized and situated. Rhythm is regular. First and second heart sounds normal. No murmurs, rubs or gallops. Abdominal exam reveals normal bowel sounds, no masses, no organomegaly and no aortic enlargement. Extremities are nonedematous and both femoral and pedal pulses are normal. Examination of the skin revealed no evidence of significant rashes, suspicious appearing nevi or other concerning lesions.Neurologically, the patient is awake and alert and the patient does not have any focal neurological deficit. Cranial nerves are essentially intact. The patient has a FemoStop was removed and the patient has adequate pulses in the lower extremities bilaterally.. Adequate pulses in lower oximetry is bilaterally. - Labs CBC & Chem 7: 10/05/22 03:15 10/05/22 03:15 Labs: Abnormal Lab Results - Last 24 Hours (Table) 10/02/22 10/04/22 10/04/22 Range/Units 09:59 10:27 11:02 Hct 38.2 L (39.0-53.0) % Plt Count 128 L (150-450) k/uL Sodium (137-145) mmol/L Chloride (98-107) mmol/L Glucose (74-99) mg/dL POC Glucose (mg/dL) 67 L (70-110) mg/dL Calcium (8.4-10.2) mg/dL Total Protein (6.3-8.2) g/dL Albumin (3.5-5.0) g/dL Crossmatch See Detail 10/04/22 10/05/22 10/05/22 Range/Units 11:02 03:15 03:15 Hct (39.0-53.0) % Plt Count 119 L (150-450) k/uL Sodium 136 L (137-145) mmol/L Chloride 108 H (98-107) mmol/L Glucose 144 H (74-99) mg/dL POC Glucose (mg/dL) (70-110) mg/dL Calcium 8.3 L (8.4-10.2) mg/dL Total Protein 5.1 L 5.6 L (6.3-8.2) g/dL Albumin 2.9 L 3.2 L (3.5-5.0) g/dL Crossmatch Assessment and Plan Plan: Aortic valve stenosis post TAVR and the patient is postop day # 1 History of complete heart block and the patient has a permanent biventricular pacemaker in place History of atrial fibrillation maintained on long-term and cognition without liquids on outpatient basis Hyperlipidemia History of Bryson's esophagus History of prostate cancer treated by radiation therapy back in 2013 History of melanoma History of abdominal wart milligrams and Mnire's disease Impaired hearing Acid reflux Hypertension Bronchial asthma Plan Clinically stable No cardiac arrhythmias No new onset neurologic symptoms Labs are all reviewed and are all within normal limits Surgical one-sided dry clean and intact No signs of any decompensated heart failure Echo to be done today to assess valve function and positioning Possible home today.
[2022-10-05] MEDS ORDERED: PANTOPRAZOLE 40 MG TABLET PO SCH (07:30)
[2022-10-05] MEDS: CLEVIDIPINE BUTYRATE 25 MG in EMPTY BAG 1 BAG IV SCH (08:56)
[2022-10-05] MEDS ORDERED: bisacodyL 10 MG SUPP RECTAL PRN (09:00)
[2022-10-05] MEDS ORDERED: ASPIRIN 81 MG PO SCH (09:00)
[2022-10-05] MEDS ORDERED: METOPROLOL TARTRATE 12.5 MG TAB PO SCH (09:00)
[2022-10-05] MEDS ORDERED: MAGNESIUM HYDROXIDE 2,400 MG/10 ML CUP PO PRN (09:00)
[2022-10-05] MEDS ORDERED: CLOPIDOGREL 75 MG TAB PO SCH (09:00)
[2022-10-05] MEDS: CHOLECALCIFEROL 25 MCG (1000 IU) TABLET PO SCH (09:04)
[2022-10-05] MEDS: HEPARIN SODIUM,PORCINE/PF 5,000 UNIT/0.5 ML SYRINGE SQ SCH (09:04)
--- NOTE | 2022-10-05 09:14 | XR ---
EXAMINATION TYPE: XR chest 1V portable DATE OF EXAM: 10/05/2022 COMPARISON: NONE HISTORY: Postop cardiac surgery TECHNIQUE: Single frontal view of the chest is obtained. FINDINGS: Calcified granuloma right lower lobe with bilateral lower lobe subsegmental consolidation small effusion. Ultimately cardiac device seen with bibasilar subsegmental consolidation. Underlying COPD and chronic interstitial lung disease suspected. IMPRESSION: 1. Correlate for chronic interstitial lung disease and COPD. There is bibasilar subsegmental consolid ation most typical of atelectasis. Tiny pleural effusions not excluded.
[2022-10-05] MEDS: IPRATROPIUM-ALBUTEROL 3 ML NEB INHALATION SCH (09:36)
[2022-10-05 11:07] VITALS: BP 113/60; PULSE 64; RESP 21; TEMP 98.9; BMI 27.8
--- NOTE | 2022-10-05 12:48 | P.DS ---
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 Calcified aortic valve with severe symptomatic aortic valve stenosis, NYHA class II symptoms 2. Paroxysmal atrial fibrillation on Eliquis for anticoagulation 3. History of ventricular tachycardia status post ablation in 2004 4. History of complete heart block status post [employer] permanent pacemaker placement in 2012 5. Hypertension 6. Hyperlipidemia 7. Asthma 8. History of Bryson's esophagitis 9. History of prostate cancer status post radiation in 2013, with self catheterization 10. History of AAA 11. Covid infection in winter 2021, remains unvaccinated 12. Previous tobacco dependence PROCEDURE: 1. Percutaneous aortic valve implantation using a 234 mm Core Valve Evolute-Pro Plus under CHACHA and fluoroscopy guidance 2. Transesophageal echocardiography performed by anesthesia 3. Ultrasound-guided access and repair of right femoral artery access site by Perclose closure device 4. Placement of temporary pacemaker wire 5. Aortic root angiography HISTORY OF PRESENT ILLNESS: This is a 87-year-old gentleman who follows on an outpatient basis with Dr. Merritt for primary care and Dr. Fernández for cardiology. He has a known history of severe aortic stenosis and has been symptomatic with increased exertional dyspnea. He had been referred to structural heart clinic for evaluation for transcatheter aortic valve replacement after heart catheterization and transesophageal echocardiogram were completed. Echocardiography demonstrated systolic function with EF 50-55%, aortic valve area 0.7 cm with a peak/mean gradient 65/39 mmHg and Vmax 4.1 m/s. Heart catheterization showed no significant coronary artery disease. After workup was completed STS risk score was calculated along with incremental risk and the patient was felt to be low risk for surgical aortic valve replacement but given his age seemed to be more appropriately suited for transcatheter aortic valve replacement. The usual course of TAVR was discussed in detail the patient and his , risks and benefits were reviewed, shared decision making between cardiology, surgery, and the patient/family took place, and the patient consented to proceed with the procedure. HOSPITAL COURSE: The patient was brought to the hospital on 10/04/2022, was taken to the extended stay area, prepared in the usual fashion, and subsequently taken to the cardiac catheterization laboratory where Dr. Dotson and Dr. Sinha completed TAVR procedure under general anesthesia with fluoroscopy and CHACHA. The valve was deployed under rapid ventricular pacing and proceeded without event. At the end of the procedure there was low gradient, hemodynamics were felt to be acceptable, and there was <10% perivalvular leak. Upon completion of the procedure the patient was extubated and was transferred to the cardiovascular intensive care unit where he was recovered and monitored hemodynamically. His oxygen was titrated down, he was tolerating oral diet, his pain was controlled, follow-up TTE was stable, and he was ready to be discharged to home on postoperative day #1. He received written and verbal instruction regarding his medications, activity restrictions, signs and symptoms requiring physician notification, and follow-up appointments. Patient Condition at Discharge: Stable Plan - Discharge Summary Discharge Rx Participant: No New Discharge Prescriptions: New Clopidogrel [Plavix] 75 mg PO DAILY #30 tab Acetaminophen Tab [Tylenol] 1,000 mg PO Q6HR PRN tab PRN Reason: Fever And/ Or Mild Pain (1-3) Continue Cholecalciferol (Vitamin D3) [Vitamin D3] 2,000 unit PO BID Atorvastatin [Lipitor] 10 mg PO HS Meclizine [Antivert] 25 mg PO TID PRN PRN Reason: Vertigo Apixaban [Eliquis] 5 mg PO BID Albuterol Sulfate [Proventil Hfa] 2 puff INHALATION DAILY PRN PRN Reason: Wheezing Omeprazole [PriLOSEC] 20 mg PO BID PRN PRN Reason: Heartburn Metoprolol Tartrate [Lopressor] 12.5 mg PO DAILY Discontinued Aspirin 81 mg PO DAILY Discharge Medication List Atorvastatin [Lipitor] 10 mg PO HS 04/22/19 [History] Cholecalciferol (Vitamin D3) [Vitamin D3] 2,000 unit PO BID 04/22/19 [History] Meclizine [Antivert] 25 mg PO TID PRN 05/06/20 [History] Apixaban [Eliquis] 5 mg PO BID 05/13/21 [History] Omeprazole [PriLOSEC] 20 mg PO BID PRN 05/13/21 [History] Albuterol Sulfate [Proventil Hfa] 2 puff INHALATION DAILY PRN 05/20/21 [History] Metoprolol Tartrate [Lopressor] 12.5 mg PO DAILY 05/20/21 [History] Acetaminophen Tab [Tylenol] 1,000 mg PO Q6HR PRN tab 10/05/22 [Rx] Clopidogrel [Plavix] 75 mg PO DAILY #30 tab 10/05/22 [Rx] Follow up Appointment(s)/Referral(s): German Fernández MD [STAFF PHYSICIAN] - 10/20/22 7:30 am (Appointment 12/01/21 is for follow up echo and appointment with Kelli at the [address] [place] [address] office. You also have a 1 year echo and follow up appointment with Dr. Fernández 10/05/22 @ 1:45 pm [facility]) Therese Angel NPC [Nurse Practitioner] - 10/12/22 10:00 am (Appointment is for groin check) Darrion Norris MD [Primary Care Provider] - As Needed Clinic,Structural Heart [NON-STAFF] - 10/20/22 10:00 am (Please come to the Valve Clinic 10/20/2022 after your appointment with Kelli. You also have a 1 year Valve Clinic appointment 10/05/2022 @ 1 pm ) Ambulatory/Diagnostic Orders: Basic Metabolic Panel [LAB.AMB] Facility: [facility], Location: [facility] Complete Blood Count w/diff [LAB.AMB] Facility: [facility], Location: [facility] Complete Blood Count w/diff [LAB.AMB] Facility: [facility], Location: [facility] Basic Metabolic Panel [LAB.AMB] Facility: [facility], Location: [facility] Patient Instructions/Handouts: Transcatheter Aortic Valve Replacement (DC) Activity/Diet/Wound Care/Special Instructions: DISCHARGE INSTRUCTIONS: 1. No driving for 1 week, or until physician gives their ok. 2. No lifting, pushing, or pulling more than 5-10 pounds for 1 week. 3. Hold both groins when you cough or sneeze for the next 2 weeks. Bruising is common, but report increased swelling, pain or fever >101F 4. Shower daily. No pool, hot tub, or bathtub for 1 week 5. No powders, lotions, ointments on incisions. 6. No straining, including for bowel movements. Use stool softner if necessary 7. Stairs are not an issue. Go slowly, using handrail and take 1 step at a time. Ambulate several times daily 8. Continue pain control per as needed orders. 9. Take only the medications listed on your discharge form 10. Eat low salt (limited to 2 grams or 2000 milligrams) daily, avoid adding salt, avoid canned/processed foods 11. Take your weight daily in the morning and record, bring with you to your follow up appointments 12. Keep all follow up appointments. You will need a valve clinic appointment at 30 days and 1 year post procedure for follow up 13. You have been referred to and are expected to begin Cardiac Rehab in approximately 4 weeks. 14. You will need antibiotics prior to any dental work, including cleanings, and any surgeries to prevent Endocarditis (bacterial infection in your heart) For any questions or concerns please call your valve coordinators: Noelle or Omar @ Discharge Disposition: HOME SELF-CARE
--- NOTE | 2022-10-05 12:51 | CA ---
Transthoracic Echo Report Name: Dhaval Yang Age: 87 Gender: M : 1935 Exam Date: 10/05/2022 08:13 Exam Location: [facility] Ht (in): 73 Wt (lb): 201 Ordering Physician: Federico Nickerson Attending/Referring Phys: Krishan MICHAELS Step Finisher Procedure CPT: Indications: Postoperative TAVR Cardiac Hx: Technical Quality: Fair Contrast 1: Total Dose (mL): Contrast 2: Total Dose (mL): MEASUREMENTS (Male / Female) Normal Values 2D ECHO LV Diastolic Diameter PLAX 4.3 cm 4.2 - 5.9 / 3.9 - 5.3 cm LV Systolic Diameter PLAX 3.1 cm IVS Diastolic Thickness 1.7 cm 0.6 - 1.0 / 0.6 - 0.9 cm LVPW Diastolic Thickness 1.6 cm 0.6 - 1.0 / 0.6 - 0.9 cm LV Relative Wall Thickness 0.8 LVOT Diameter 1.9 cm DOPPLER AV Peak Velocity 280.1 cm/s AV Peak Gradient 31.4 mmHg AV Mean Velocity 172.1 cm/s AV Mean Gradient 14.1 mmHg AV Velocity Time Integral 45.4 cm LVOT Peak Velocity 137.0 cm/s LVOT Peak Gradient 7.5 mmHg AV Area Cont Eq pk 1.4 cm??? MV Peak Velocity 137.6 cm/s MV Peak Gradient 7.6 mmHg MV Mean Velocity 68.6 cm/s MV Mean Gradient 2.2 mmHg MV Velocity Time Integral 34.9 cm TR Peak Velocity 287.2 cm/s TR Peak Gradient 33.0 mmHg Right Atrial Pressure 5.0 mmHg Pulmonary Artery Systolic Pressu 38.0 mmHg Right Ventricular Systolic Press 38.0 mmHg FINDINGS Left Ventricle Severely increased left ventricular wall thickness. No obvious regional wall motion abnormalities. Left ventricular ejection fraction is estimated at 50-55 %. Right Ventricle Normal right ventricular size and function. Mild pulmonary hypertension. Right ventricular systolic pressure estimated at 39 mm hg. Right Atrium Normal right atrial size. Left Atrium Normal left atrial size. No evidence for an atrial septal defect. Mitral Valve Mitral valve thickened. Moderate mitral annular calcification. Mild mitral regurgitation. Aortic Valve Normally functioning bioprosthetic aortic valve without stenosis with a peak velocity of 2.8 m/s, peak gradient 31 mmHg, mean gradient 14 mmHg, and estimated aortic valve area of 1.4 cm???. Mild aortic regurgitation. Tricuspid Valve Structurally normal tricuspid valve. Mild tricuspid regurgitation. Pulmonic Valve Trace pulmonic regurgitation. Pericardium No pericardial effusion. Aorta Aortic root and proximal ascending aorta not well visualized. CONCLUSIONS Normal LV systolic function Mild prosthetic aortic valve regurgitation Mild mitral and tricuspid regurgitation Previewed by: Dr. Phillip Lizama MD (Electronically Signed) Final Date: 05 October 2022 12:50
[2022-10-05] MEDS ORDERED: SENNOSIDES-DOCUSATE SODIUM 1 EACH TAB PO SCH (21:00)
== END 2022-10-05 13:23 | disposition home or self-care (01) | DRG 267 ==
LOC: 2ORMAIN 05:47 → 2SICU 10:03
PROVIDERS: ADMIT Internal Medicine Interventional Cardiology; ATTEND Internal Medicine Interventional Cardiology
PROC: B3101ZZ Fluoroscopy of Thoracic Aorta using Low Osmolar Contrast (ICD-10-PCS; 2022-10-04)
PROC: 5A1223Z Performance of Cardiac Pacing, Continuous (ICD-10-PCS; 2022-10-04)
PROC: 02RF38Z Replacement of Aortic Valve with Zooplastic Tissue, Percutaneous Approach (ICD-10-PCS; principal; 2022-10-04 08:00)
PROC: B246ZZ4 Ultrasonography of Right and Left Heart, Transesophageal (ICD-10-PCS; 2022-10-04 08:00)
DX: I08.3 Combined rheumatic disorders of mitral, aortic and tricuspid valves (principal); Z00.6 Encounter for examination for normal comparison and control in clinical research program; E78.5 Hyperlipidemia, unspecified; H81.09 Meniere's disease, unspecified ear; H91.90 Unspecified hearing loss, unspecified ear; I10 Essential (primary) hypertension; I48.0 Paroxysmal atrial fibrillation; J45.909 Unspecified asthma, uncomplicated; K22.70 Barrett's esophagus without dysplasia; Z79.01 Long term (current) use of anticoagulants; Z79.82 Long term (current) use of aspirin; Z79.899 Other long term (current) drug therapy; Z85.46 Personal history of malignant neoplasm of prostate; Z85.820 Personal history of malignant melanoma of skin; Z86.79 Personal history of other diseases of the circulatory system; Z87.891 Personal history of nicotine dependence; Z92.3 Personal history of irradiation
CPT/HCPCS: 33210; 33361; 71045; 80053; 82330; 83735; 85025; 85347; 85610; 85730; 86850; 86891; 86900; 86901; 86920; 93306; 93312; 93320; 93325

== ENCOUNTER 2022-10-08 17:02 | Emergency (ER) | payer MEDICARE ==
[2022-10-08 17:07] VITALS: TEMP 98.2
--- NOTE | 2022-10-08 17:23 | ED ---
General Adult HPI - General Chief complaint: Recheck/Abnormal Lab/Rx Stated complaint: Groin Pain Time Seen by Provider: 10/08/22 17:09 Source: patient Mode of arrival: wheelchair Limitations: no limitations - History of Present Illness Initial comments: Dictation was produced using [employer] dictation software. please excuse any grammatical, word or spelling errors. Chief Complaint: 87-year-old male presents with groin pain after cath procedure History of Present Illness: Patient is an 87-year-old male 5 days ago he had catheterization procedure where they went through his left groin noted to replace a heart valve. Patient states that postoperatively he is doing fine except for some swelling and bruising and groin pain to the left groin. Patient denies any numbness and paresthesias to the left lower extremity. Denies any other symptoms. The ROS documented in this emergency department record has been reviewed and confirmed by me. Those systems with pertinent positive or negative responses have been documented in the HPI. All other systems are other negative and/or noncontributory. PHYSICAL EXAM: General Impression: Alert and oriented x3, not in acute distress HEENT: Normocephalic atraumatic, extra-ocular movements intact, pupils equal and reactive to light bilaterally, mucous membranes moist. Cardiovascular: Heart regular rate and rhythm Chest: Able to complete full sentences, no retractions, no tachypnea Abdomen: abdomen soft, non-tender, non-distended, no organomegaly Musculoskeletal: Pulses present and equal in all extremities, no peripheral edema Left groin: Bruising and swelling at the left groin. Palpable mass felt in the left groin as well. Otherwise surgical site is clean dry and intact. Motor: no focal deficits noted Neurological: CN II-XII grossly intact, no focal motor or sensory deficits noted Skin: Intact with no visualized rashes Psych: Normal affect and mood ED course: 87-year-old male presents with postoperative catheterization swelling and pain. Clear presentation insistent with pseudoaneurysm. Vital signs upon arrival are within acceptable limits. Nursing notes and chart review was performed Ultrasound was obtained showing no evidence of pseudoaneurysm or aneurysm or abnormalities. Reevaluated at bedside 7:00 PM after being observed in the ER for 2 hours. Patient's in stable medical condition. Patient advised to follow- up with Dr. Dotson. - Related Data Home Medications Medication Instructions Recorded Confirmed Atorvastatin [Lipitor] 10 mg PO HS 04/22/19 09/28/22 Cholecalciferol (Vitamin D3) 2,000 unit PO BID 04/22/19 09/28/22 [Vitamin D3] Meclizine [Antivert] 25 mg PO TID PRN 05/06/20 10/04/22 Apixaban [Eliquis] 5 mg PO BID 05/13/21 10/04/22 Omeprazole [PriLOSEC] 20 mg PO BID PRN 05/13/21 10/04/22 Albuterol Sulfate [Proventil Hfa] 2 puff INHALATION DAILY PRN 05/20/21 09/28/22 Metoprolol Tartrate [Lopressor] 12.5 mg PO DAILY 05/20/21 09/28/22 Previous Rx's Medication Instructions Recorded Acetaminophen Tab [Tylenol] 1,000 mg PO Q6HR PRN tab 10/05/22 Clopidogrel [Plavix] 75 mg PO DAILY #30 tab 10/05/22 Allergies Allergy/AdvReac Type Severity Reaction Status Date / Time No Known Allergies Allergy Verified 10/08/22 17:06 Review of Systems ROS Statement: Those systems with pertinent positive or pertinent negative responses have been documented in the HPI. ROS Other: All systems not noted in ROS Statement are negative. Past Medical History Past Medical History: Atrial Fibrillation, Asthma, Cancer, Eye Disorder, GERD/Reflux, Hearing Disorder / Deafness, Hyperlipidemia, Hypertension, Prostate Disorder, Skin Disorder, Vascular Disorder Additional Past Medical History / Comment(s): Aortic valve stenosis,See Dr Bettencourt's H&P, Bryson's Esophagus,Self caths r/t prostate surg. since 2013, radiation 30 tx's on upper lip for tx of melanoma-last tx 04-21-19, Meniere's Disease, abd. aortic aneurysm-vasc. monitoring History of Any Multi-Drug Resistant Organisms: None Reported Past Surgical History: Appendectomy, Cardiac Ablation, Cardiac Valve Replacement, Cholecystectomy, Heart Catheterization, Hernia Repair, Pacemaker, Prostate Surgery Additional Past Surgical History / Comment(s): "reemed the prostate-could not urinate on own post procedure", EGDs,Adhesions removed,maximo cataracts,laparoscopic kinsey fundoplication, left leg vein stripping Past Anesthesia/Blood Transfusion Reactions: No Reported Reaction Type of Cardiac Device: Permanent Pacemaker Device Placement Date:: 2019 Past Psychological History: No Psychological Hx Reported Smoking Status: Former smoker Past Alcohol Use History: None Reported Past Drug Use History: None Reported - Past Family History Mother Family Medical History: No Reported History Additional Family Medical History / Comment(s): Not pertinent for current admission Brother(s) Family Medical History: Cancer Father Additional Family Medical History / Comment(s): History of heart problems General Exam Limitations: no limitations Course Vital Signs 10/08/22 10/08/22 17:03 17:50 Temperature 98.2 F Pulse Rate 73 70 Respiratory 16 16 Rate Blood Pressure 143/73 138/70 O2 Sat by Pulse 96 97 Oximetry Disposition Clinical Impression: Pain at surgical site Disposition: HOME SELF-CARE Condition: Good Instructions (If sedation given, give patient instructions): Acetaminophen/Codeine (By mouth) Is patient prescribed a controlled substance at d/c from ED?: No Referrals: Darrion Norris MD [Primary Care Provider] - 1-2 days Time of Disposition: 19:03
--- NOTE | 2022-10-08 17:54 | US ---
EXAMINATION TYPE: US lower ext pseudo artery LT DATE OF EXAM: 10/08/2022 COMPARISON: NONE CLINICAL HISTORY: suspect pseudoaneurysm. heart valve replacement 5 days ago thru left groin, pain an d bruising, no lump EXAM PERFORMED: Grayscale and color Doppler duplex imaging performed of the groin, post cardiac radha ter to assess for pseudoaneurysm. SIDE PERFORMED: Left Color and Waveform Doppler performed to assess for the presence of pseudoaneurysm; Is there ultrasound evidence of a pseudoaneurysm: no Is there evidence of AV shunting: no Is there a fluid collection present: no IMPRESSION: No evidence of pseudoaneurysm.
[2022-10-08] MEDS ORDERED: ACET/COD 300 MG/30 MG STARTER PACK 6 TAB BTL PO STA (19:03)
[2022-10-08 19:14] VITALS: BP 132/71; PULSE 72; RESP 18
== END 2022-10-08 19:18 | disposition home or self-care (01) ==
LOC: EC 17:02
DX: G89.18 Other acute postprocedural pain (principal); I48.91 Unspecified atrial fibrillation; J45.909 Unspecified asthma, uncomplicated; K21.9 Gastro-esophageal reflux disease without esophagitis; E78.5 Hyperlipidemia, unspecified; I10 Essential (primary) hypertension; Z87.891 Personal history of nicotine dependence; Z79.899 Other long term (current) drug therapy
CPT/HCPCS: 93975; 99283

== ENCOUNTER → 2022-10-30 | Outpatient (CLI) | payer MEDICARE ==
[2022-10-30 18:52] LABS: Basophils # (A) 0.03 X 10*3/uL (0.00-0.10); Basophils % (A) 0.4 %; Eosinophils # (A) 0.11 X 10*3/uL (0.04-0.35); Eosinophils % (A) 1.4 %; HCT 44.8 % (39.6-50.0); HGB 14.8 g/dL (13.0-17.0); Immature Grans, Automated 0.3 %; Lymphocytes # (A) 1.79 X 10*3/uL (0.90-5.00); Lymphocytes % (A) 22.6 %; MCV 90.7 fL (80.0-97.0); Mean Platelet Volume 10.5 fL (9.5-12.2); Monocytes # (A) 0.75 X 10*3/uL (0.20-1.00); Monocytes % (A) 9.5 %; NRBC Per 100 WBC 0 /100 WBCS (0.0-0.0); Neutrophils # (A) 5.21 X 10*3/uL (1.80-7.70); Neutrophils % (A) 65.8 %; Platelet Count 157 X 10*3/uL (140-440); RBC 4.94 X 10*6/uL (4.40-5.60); RDW 12.5 % (11.5-14.5); WBC 7.91 X 10*3/uL (4.50-10.00)
[2022-10-30 18:59] LABS: African American GFR (CKD) 75.9 (60.0-200.0); Anion Gap 15.9 mmol/L (10.00-18.00); BUN/Creat Ratio 13.88 Ratio (12.00-20.00); Blood Urea Nitrogen 14.3 mg/dL (9.0-27.0); Calcium 9.8 mg/dL (8.7-10.3); Carbon Dioxide 21.6 mmol/L (20.0-27.5); Non-African American GFR(CKD) 65.5 (60.0-200.0); Potassium 4.4 mmol/L (3.5-5.5)
== END | disposition home or self-care (01) ==
LOC: LABWHC1 10:54
PROVIDERS: ATTEND Nurse Practitioner Acute Care
DX: I48.91 Unspecified atrial fibrillation (principal)
CPT/HCPCS: 36415; 80048; 85025

== ENCOUNTER 2023-06-29 05:49 | Day surgery (SDC) | payer MEDICARE ==
[2023-06-29 06:23] VITALS: TEMP 97.6
[2023-06-29] MEDS ORDERED: SODIUM CHLORIDE 0.9% 500 ML 500 ML IV ONE (06:23)
[2023-06-29] MEDS ORDERED: fentaNYL (PF) 50 MCG/ML 2 ML AMP ONE (07:14)
[2023-06-29] MEDS: BENZOCAINE SPRAY 1 CAN TOPICAL ONE ×2 (07:31→07:40)
[2023-06-29] MEDS ORDERED: MIDAZOLAM 2 MG/2 ML VIAL IVP ONE ×2 (07:39→07:41)
[2023-06-29] MEDS ORDERED: fentaNYL (PF) 50 MCG/ML 2 ML AMP IVP ONE (07:39)
[2023-06-29 07:52] VITALS: RESP 16
--- NOTE | 2023-06-29 08:25 | P.PCN ---
Date of Procedure: 06/29/23 Operative Findings: TRANSESOPHAGEAL ECHOCARDIOGRAM LEAD ARCHITECT: RONAK LAINEZ MD, RPVI INDICATION: Rule out cardiac source of embolization. This is an 87-year-old gentleman with valvular heart disease known severe aortic stenosis status post transcutaneous aortic valve replacement and also paroxysmal nature fibrillation as well as multiple comorbid conditions who had an episode of amaurosis fugax recently. He was brought today to undergo transesophageal echocardiogram to rule out any cardiac source of embolization. SEDATION: Conscious sedation COMPLICATION: None LEVEL OF SEDATION Moderate to sedation length of 12 minutes PROCEDURE DESCRIPTION: After obtaining an informed consent, the patient was brought to transesophageal echocardiogram room. Pulse oximetry and heart monitors were attached to the patient. The patient throat was sprayed using lidocaine. The patient was turned into left lateral position. After that a bite guard was placed. After an appropriate conscious sedation was initiated, the transesophageal echocardiogram was advanced through a bite guard into the mid esophagus. A 2-D echocardiogram images, color Doppler images, continuous wave images, pulse-wave images, of various cardiac structure were performed. After that the transesophageal echocardiogram probe was advanced into the stomach and fixed to obtain transgastric view was. The probe was brought into the mid esophagus. Inter-atrial septum was interrogated using 2D images, color Doppler images, and then contrast study. After that transesophageal echocardiogram was withdrawn out and upon withdrawing the descending thoracic aorta all the way up to the a [facility] was evaluated. FINDING: The left ventricular dimension and systolic function appeared to be within normal limits. The ejection fraction appears to be in the range of 50-55%. Right ventricle appeared to be of normal size and function. The left atrium and right atrium appears to be mildly to moderately dilated. The left atrial appendage appeared to be free from any thrombus. The interatrial septum appears to be slightly hyperdynamic but no evidence of any patent foramen ovale or atrial septal defect noted. No crossing from the [id number] or [id number] was identified. The aortic valve appears to be transcatheter valve and seems to be consistent with Core valve with no evidence of aortic stenosis but mild perivalvular regurgitation was identified. The mitral valve appeared to be mildly thickened with evidence of moderate to severe mitral regurgitation. The mitral regurgitation appears to be moderate to severe by color flow Doppler as well as by quantitative measurements. The proximal isovelocity surface area (PISA) radius was 1 cm which is consistent with severe mitral regurgitation. There is [id number] tricuspid regurgitation was identified. No evidence of pericardial effusion seen. No evidence of vegetation identified. CONCLUSION: 1. No evidence of cardiac source of embolization noted 2. Mildly hyperdynamic interatrial septum with no evidence of patent foramen ovale or atrial septal defect. 3. Intact left atrial appendage with no evidence of thrombus seen 4. Transcatheter aortic valve was identified with no evidence of vegetation. There was mild perivalvular regurgitation identified. 5. Mildly thickened mitral valve leaflets with evidence of moderate to severe mitral regurgitation. The radius of PISA was 1 cm 6. Mild to moderate tricuspid regurgitation 7. No evidence of any vegetation identified 8. No evidence of pericardial effusion
[2023-06-29 09:18] VITALS: BP 124/64; PULSE 55
== END 2023-06-29 09:20 | disposition home or self-care (01) ==
LOC: CATHCVL 05:49
PROVIDERS: ATTEND Internal Medicine Interventional Cardiology
DX: I08.3 Combined rheumatic disorders of mitral, aortic and tricuspid valves (principal); I48.0 Paroxysmal atrial fibrillation; G45.3 Amaurosis fugax; I25.10 Atherosclerotic heart disease of native coronary artery without angina pectoris; Z95.2 Presence of prosthetic heart valve; Z95.0 Presence of cardiac pacemaker; Z79.01 Long term (current) use of anticoagulants; Z79.02 Long term (current) use of antithrombotics/antiplatelets; Z79.899 Other long term (current) drug therapy
CPT/HCPCS: 93312; 93320; 93325; J2250; J3010

== ENCOUNTER → 2023-08-06 | Outpatient (CLI) | payer MEDICARE ==
[2023-08-07 13:01] LABS: Basophils # (A) 0.05 X 10*3/uL (0.00-0.10); Basophils % (A) 0.7 %; Blood Urea Nitrogen 14.1 mg/dL (9.0-27.0); Calcium 9.9 mg/dL (8.7-10.3); Carbon Dioxide 26.8 mmol/L (21.6-31.8); Chloride 104 mmol/L (96-109); Eosinophils % (A) 1.4 %; Glucose 92 mg/dL (70-110); HCT 48.4 % (39.6-50.0); HGB 15.9 d/dL (13.0-17.0); Lymphocytes # (A) 1.85 X 10*3/uL (0.90-5.00); Lymphocytes % (A) 26.5 %; MCH 29.5 pg (27.0-32.0); MCHC 32.9 d/dL (32.0-37.0); MCV 89.8 FL (80.0-97.0); Mean Platelet Volume 10.3 FL (9.5-12.2); Monocytes % (A) 8.6 %; NRBC Per 100 WBC 0 X 10*3/uL (0.00-0.01); Neutrophils # (A) 4.36 X 10*3/uL (1.80-7.70); Neutrophils % (A) 62.5 %; Platelet Count 154 X 10*3/uL (140-440); Potassium 4.5 mmol/L (3.5-5.5); RBC 5.39 X 10*6/uL (4.40-5.60); Sodium 141 mmol/L (135-145); WBC 6.98 X 10*3/uL (4.50-10.00)
== END | disposition home or self-care (01) ==
LOC: LABWHC1 12:33
PROVIDERS: ATTEND Nurse Practitioner Acute Care
DX: Z95.2 Presence of prosthetic heart valve (principal)
CPT/HCPCS: 36415; 80048; 85025

== ENCOUNTER → 2024-03-12 | Outpatient (CLI) | payer MEDICARE ==
[2024-03-12 14:30] LABS: Basophils # (A) 0.05 X 10*3/uL (0.00-0.10); Basophils % (A) 0.7 %; Eosinophils # (A) 0.19 X 10*3/uL (0.04-0.35); Eosinophils % (A) 2.7 %; HCT 47.7 % (39.6-50.0); HGB 16.2 g/dL (13.0-17.0); Lymphocytes # (A) 1.75 X 10*3/uL (0.90-5.00); Lymphocytes % (A) 24.7 %; MCH 30.3 pg (27.0-32.0); MCV 89.2 FL (80.0-97.0); Mean Platelet Volume 10.1 FL (9.5-12.2); Monocytes % (A) 8.5 %; NRBC Per 100 WBC 0 X 10*3/uL (0.00-0.01); Neutrophils # (A) 4.47 X 10*3/uL (1.80-7.70); Neutrophils % (A) 63.1 %; Platelet Count 160 X 10*3/uL (140-440); RBC 5.35 X 10*6/uL (4.40-5.60); RDW 12.8 % (11.5-14.5); WBC 7.08 X 10*3/uL (4.50-10.00)
[2024-03-12 15:18] LABS: ALT 15 U/L (10-49); AST 22 U/L (14-35); Albumin 4.5 g/dL (3.8-4.9); Albumin/Globulin Ratio 1.67 Ratio (1.60-3.17); Alkaline Phosphatase 85 U/L (41-126); Blood Urea Nitrogen 13.4 mg/dL (9.0-27.0); Calcium 9.8 mg/dL (8.7-10.3); Carbon Dioxide 26.4 mmol/L (21.6-31.8); Chloride 105 mmol/L (96-109); Chol/HDL Ratio 2.45 Ratio; Globulin 2.7 g/dL (1.6-3.3); Glucose 90 mg/dL (70-110); LDL Cholesterol,Calculated 60.4 mg/dL (0.0-131.0); Magnesium 2.3 mg/dL (1.5-2.4); Potassium 4.5 mmol/L (3.5-5.5); Sodium 142 mmol/L (135-145); Total Bilirubin 0.6 mg/dL (0.3-1.2); Total Protein 7.2 g/dL (6.2-8.2); VLDL Calculation 15.36 mg/dL (5.00-40.00)
== END | disposition home or self-care (01) ==
LOC: LABWHC1 08:19
PROVIDERS: ATTEND Internal Medicine
DX: E78.2 Mixed hyperlipidemia (principal)
CPT/HCPCS: 36415; 80053; 80061; 83735; 84443; 85025

== ENCOUNTER → 2025-03-04 | Outpatient (CLI) | payer MEDICARE ==
[2025-03-04 10:23] LABS: Basophils # (A) 0.04 X 10*3/uL (0.00-0.10); Basophils % (A) 0.6 %; Eosinophils # (A) 0.14 X 10*3/uL (0.04-0.35); HCT 48.1 % (39.6-50.0); Lymphocytes % (A) 24.6 %; MCH 29.4 pg (27.0-32.0); MCHC 33.3 g/dL (32.0-37.0); MCV 88.4 FL (80.0-97.0); Mean Platelet Volume 10.2 FL (9.5-12.2); Monocytes # (A) 0.67 X 10*3/uL (0.20-1.00); Monocytes % (A) 9.7 %; NRBC Per 100 WBC 0 X 10*3/uL (0.00-0.01); Neutrophils # (A) 4.35 X 10*3/uL (1.80-7.70); Neutrophils % (A) 62.8 %; Platelet Count 156 X 10*3/uL (140-440); RBC 5.44 X 10*6/uL (4.40-5.60); RDW 12.3 % (11.5-14.5); WBC 6.92 X 10*3/uL (4.50-10.00)
[2025-03-04 10:45] LABS: LDL Cholesterol,Calculated 55.5 mg/dL (0.0-131.0)
[2025-03-04 10:46] LABS: ALT 15 U/L (10-49); AST 17 U/L (14-35); Albumin 4.3 g/dL (3.8-4.9); Albumin/Globulin Ratio 1.72 Ratio (1.60-3.17); Alkaline Phosphatase 72 U/L (41-126); Calcium 9.6 mg/dL (8.7-10.3); Carbon Dioxide 27.3 mmol/L (21.6-31.8); Chloride 104 mmol/L (96-109); Chol/HDL Ratio 2.57 Ratio; Globulin 2.5 g/dL (1.6-3.3); Glucose 89 mg/dL (70-110); Magnesium 2.2 mg/dL (1.5-2.4); Potassium 4.4 mmol/L (3.5-5.5); Sodium 141 mmol/L (135-145); Total Bilirubin 0.7 mg/dL (0.3-1.2); Total Protein 6.8 g/dL (6.2-8.2)
== END | disposition home or self-care (01) ==
LOC: LABWHC1 07:40
PROVIDERS: ATTEND Internal Medicine
DX: I48.91 Unspecified atrial fibrillation (principal)
CPT/HCPCS: 36415; 80053; 80061; 83735; 84443; 85025